=== PATIENT | female | born 2005 | race Caucasian/White ===

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

== ENCOUNTER 2023-01-11 23:42 | Emergency (ER) | payer BC, MEDICAID ==
[2023-01-11] MEDS ORDERED: MOTRIN 600 MG PO ONE (23:50)
[2023-01-12] MEDS ORDERED: MOTRIN 600 MG ONE (00:10)
[2023-01-12 00:11] VITALS: O2SAT 100
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
[2023-01-12 00:52] VITALS: BP 117/76; PULSE 69
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
== END 2023-01-12 01:11 | disposition home or self-care (01) ==
LOC: ED 23:42
DX: Z04.1 Encounter for examination and observation following transport accident (principal); M25.562 Pain in left knee; Z79.899 Other long term (current) drug therapy
CPT/HCPCS: 73560; 99285; A9270-GY

== ENCOUNTER 2023-01-14 11:46 | Emergency (ER) | payer BC, MEDICAID ==
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
[2023-01-14 12:56] VITALS: BP 117/55; PULSE 60; O2SAT 99
[2023-01-14] MEDS ORDERED: NORCO 5/325 MG ONE (13:00)
[2023-01-14] MEDS ORDERED: NORCO 5/325 MG PO ONE (13:57)
== END 2023-01-14 13:10 | disposition home or self-care (01) ==
LOC: ED 11:46
DX: R40.0 Somnolence (principal); F07.81 Postconcussional syndrome; S16.1XXA Strain of muscle, fascia and tendon at neck level, initial encounter; S70.02XA Contusion of left hip, initial encounter; V87.9XXA Person injured in other specified (collision)(noncollision) transport accidents involving nonmotor vehicle (traffic), initial encounter; Z79.891 Long term (current) use of opiate analgesic; Z79.899 Other long term (current) drug therapy
CPT/HCPCS: 70450; 72125; 73502; 99283; A9270-GY

== ENCOUNTER 2023-04-01 10:01 | Emergency (ER) | payer BC, MEDICAID ==
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
[2023-04-01 10:10] VITALS: TEMP 97.4
--- NOTE | 2023-04-01 10:57 | XRAY ---
Indication: Headache 2 weeks. Multiple contiguous axial images obtained through the head without contrast. Comparison: January 14, 2023 Normal appearing brain parenchyma, ventricles, and bony calvarium. Again 1.5 cm right sphenoid sinus polyp/retention cyst. Remaining visualized paranasal sinuses and mastoid air cells are clear. Impression: Again small right sphenoid sinus polyp/retention cyst. Remaining CT head without contrast exam continues to be normal.
[2023-04-01] MEDS ORDERED: NORCO 5/325 MG PO ONE (11:08)
[2023-04-01] MEDS ORDERED: BENADRYL 50 MG/ML IM ONE (11:08)
[2023-04-01] MEDS ORDERED: TORAdol 30 mg Injection IM ONE (11:08)
[2023-04-01] MEDS ORDERED: NORCO 5/325 MG ONE (11:20)
[2023-04-01] MEDS ORDERED: BENADRYL 50 MG/ML ONE (11:20)
[2023-04-01] MEDS ORDERED: TORAdol 30 mg Injection ONE (11:20)
[2023-04-01 11:36] VITALS: BP 117/76; PULSE 86; RESP 16
[2023-04-01 11:39] VITALS: O2SAT 99
== END 2023-04-01 11:48 | disposition home or self-care (01) ==
LOC: ED 10:01
DX: G43.909 Migraine, unspecified, not intractable, without status migrainosus (principal); J33.8 Other polyp of sinus; J34.1 Cyst and mucocele of nose and nasal sinus; Z79.899 Other long term (current) drug therapy
CPT/HCPCS: 70450; 96372; 99283; J1200; J1885; A9270-GY

== ENCOUNTER 2023-11-10 10:56 | Emergency (ER) | payer BC ==
[2023-11-10 11:41] VITALS: PULSE 81; TEMP 97.5
[2023-11-10 12:39] LABS: Absolute Neutrophil Ct (ANC) 4.23 x10^3/uL (1.4-6.9); BASOPHIL % 0.5 % (0.0-0.4); Basophil (Absolute #) 0.03 x10^3/uL (0-0.4); Eosinophil % 1.8 % (0.00-5.0); Eosinophil (Absolute #) 0.12 x10^3/uL (0-0.5); Hematocrit 40.7 % (35-47); Hemoglobin 13.1 g/dL (12.0-16.0); IMMATURE GRAN # 0.02 x10^3u/L (0.00-0.03); IMMATURE GRAN % 0.3 % (0.00-0.4); Lymphocytes % 24.1 % (24.0-44.0); Mean Cell Volume 87.9 fL (78-100); Mean Corpuscular Hemoglobin 28.3 pg (26-32); Mean Corpuscular Hgb Concent. 32.2 g/dL (32-36); Mean Platelet Volume 10.2 fL (7.5-11.0); Monocyte (Absolute #) 0.65 x10^3/uL (0.0-1.3); Monocytes % 9.8 % (0.0-12.0); Neutrophil % 63.5 % (36.0-66.0); Platelet Count 248 x10^3/uL (150-450); Red Blood Count 4.63 x10^6/uL (4.1-5.4); Red Cell Distribution Width 13.2 % (11.5-14.0); White Blood Count 6.7 x10^3/uL (4.0-10.5)
[2023-11-10 12:43] LABS: Appearance Clear (Clear); Bacteria None Seen /HPF (None Seen); Bilirubin Negative (Negative); Blood Negative (Negative); Epithelial Cells None Seen /HPF (None Seen); Glucose, Urine Negative (Negative); HCG URINE TEST NEGATIVE (NEGATIVE); Hyaline Casts NONE SEEN /LPF (0-2); Ketones Negative (Negative); Leukocyte Esterase Negative (Negative); Nitrite Negative (Negative); Ph 6.5 (4.6-8.0); Protein,Urine Dip Negative (Negative); RBC 0-2 /HPF (0-5); Urobilinogen 0.2 mg/dL (0.2); WBC 0-2 /HPF (0-5)
[2023-11-10 12:44] LABS: ADD URINE CULTURE? NO (NO); ALBUMIN 4.1 g/dL (3.5-5.0); ANION GAP 15.3 MEQ/L (5-15); BILIRUBIN,TOTAL 0.6 mg/dL (0.2-1.3); Calcium 9.2 mg/dL (8.4-10.2); Creatinine 1 0.64 mg/dL (0.52-1.04); EST GLOMERULAR FILTRATION RATE 129.7 ML/MIN; Potassium 3.7 mmol/L (3.5-5.1); Total Protein 7.2 g/dL (6.3-8.2)
[2023-11-10 13:17] VITALS: BP 126/59
[2023-11-10] MEDS ORDERED: TORAdol 30 mg Injection ONE (14:03)
--- NOTE | 2023-11-10 14:03 | XRAY ---
Indication: Torsion. Two-dimensional transvaginal pelvic sonogram performed. Comparison: September 18, 2021 Uterus now retroflexed measuring 5.5 x 3.0 x 4.3 cm. No focal solid/cystic uterine mass. Endometrial stripe measures 3.5 mm. No endometrial cavity mass or fluid collection. Right ovary measures 2.2 x 1.9 x 3.0 cm and left measures 2.7 x 2.4 x 1.9 cm. Normal follicular cysts and perfusion bilaterally. Tiny cul-de-sac fluid presumed physiologic from rupture/leaking cyst. Impression: Tiny physiologic cul-de-sac fluid. Remaining transvaginal pelvic sonogram continues to be negative.
[2023-11-10] MEDS: TORAdol 30 mg Injection IV ONE (14:04)
--- NOTE | 2023-11-10 14:05 | XRAY ---
Indication: Pain. Multiple contiguous axial images obtained through the abdomen and pelvis without contrast. Comparison: None Lung bases clear. Heart not enlarged. Noncontrasted stomach and bowel loops appear nonobstructed with normal appearing appendix. Tiny cul-de-sac fluid presumed physiologic from rupture/leaking cyst. No free air. Remaining liver, gallbladder, pancreas, spleen, adrenal glands, kidneys, ureters, bladder, uterus, and aorta are unremarkable for noncontrast exam. Osseous structures intact. No ventral or inguinal hernias. Impression: Tiny physiologic cul-de-sac fluid. Remaining CT abdomen/pelvis without contrast exam is negative.
[2023-11-10 14:09] LABS: CHLAMYDIA DNA NOT DETECTED (NEGATIVE); GC DNA Probe NOT DETECTED (NEGATIVE)
[2023-11-10 14:13] VITALS: O2SAT 99
--- NOTE | 2023-11-10 15:01 | ERPHSYRPT ---
- History of Present Illness Time Seen by Provider: 11/10/23 11:50 Source: patient Exam Limitations: no limitations Patient Subjective Stated Complaint: Pt c/o of lower abdominal pain since yesterday Triage Nursing Assessment: Pt brought to the ER by her friend, amy alstonza, rates pain as 8/10, N&V, denies diarrhea, last intake last night, last bowel movement today, pulses normal, skin n/w/d, pain with palpatation, walked into the ER with a stable gait Physician History: 18-year-old female presents to our ED for evaluation of lower abdominal/pelvic pain. Pain started yesterday and has been constant. No trauma no fever no nausea vomiting or diaphoresis. Symptoms are constant. Symptoms are moderate in intensity. Pain worse with palpation. Pain improved with rest. Patient denies associated nausea vomiting diarrhea. No vaginal discharge. Patient denies the possibility of STI. Patient had a STI workup approximately 2 weeks ago by her [employer] physician. Patient states results were negative. Patient does not believe that there is a need for a pelvic exam today. Patient declined a pelvic exam. Patient voices no other complaints or concerns at this time. Portions of this note were created with voice recognition technology. There may be grammatical, spelling, punctuation or sound alike errors Timing/Duration: yesterday Severity: moderate Modifying Factors: Improves With: nothing Associated Symptoms: denies symptoms Allergies/Adverse Reactions: amoxicillin Allergy (Intermediate, Verified 11/10/23 11:41) Difficulty Breathing cephalexin [From Keflex] Allergy (Intermediate, Verified 11/10/23 11:41) Rash cetirizine [From Zyrtec] Allergy (Intermediate, Verified 11/10/23 11:41) Hives metronidazole Allergy (Intermediate, Verified 11/10/23 11:41) Difficulty Breathing AND RASH trazodone Allergy (Intermediate, Verified 11/10/23 11:41) Hives guaifenesin [From Mucinex] Allergy (Verified 11/10/23 11:41) Rash RASH Home Medications: Paroxetine HCl 20 mg [Paxil 20 MG] 40 mg PO HS MDD 1 tab hs 09/23/17 [History] clonazePAM [Clonazepam] 0.5 mg PO DAILY 04/01/23 [History] Hx Tetanus, Diphtheria Vaccination/Date Given: No Hx Influenza Vaccination/Date Given: No Hx Pneumococcal Vaccination/Date Given: No Travel Risk - International Travel Have you traveled outside of the country in past 3 weeks: No - Emerging Infectious Disease Are you exhibiting symptoms associated with any current EIDs: No - Review of Systems Constitutional: No Symptoms, No Fever, No Chills Eyes: No Symptoms Ears, Nose, & Throat: No Symptoms Respiratory: No Symptoms, No Cough, No Dyspnea Cardiac: No Symptoms, No Chest Pain, No Edema, No Syncope Abdominal/Gastrointestinal: No Symptoms, No Abdominal Pain, No Nausea, No Vomiting, No Diarrhea Genitourinary Symptoms: No Symptoms, No Dysuria Musculoskeletal: No Symptoms, No Back Pain, No Neck Pain Skin: No Symptoms, No Rash Neurological: No Symptoms, No Dizziness, No Focal Weakness, No Sensory Changes Psychological: No Symptoms Endocrine: No Symptoms Hematologic/Lymphatic: No Symptoms Immunological/Allergic: No Symptoms All Other Systems: Reviewed and Negative - Past Medical History Pertinent Past Medical History: Yes Neurological History: No Pertinent History ENT History: No Pertinent History Cardiac History: No Pertinent History Respiratory History: No Pertinent History Endocrine Medical History: No Pertinent History Musculoskeletal History: No Pertinent History GI Medical History: No Pertinent History History: No Pertinent History Psycho-Social History: Anxiety, Other Female Reproductive Disorders: No Pertinent History Other Medical History: insomnia - Past Surgical History Past Surgical History: Yes Neuro Surgical History: No Pertinent History Cardiac: No Pertinent History Respiratory: No Pertinent History Gastrointestinal: No Pertinent History Genitourinary: No Pertinent History Musculoskeletal: No Pertinent History Female Surgical History: No Pertinent History Other Surgical History: cyst removed from sinisus Significant Family History: other (father had afib at age 19) - Female History Hx Now: No - Social History Smoking Status: Never smoker How long have you smoked: 2 Exposure to second hand smoke: Yes Alcohol Use: None Drug Use: none Patient Lives Alone: No - Nursing Vital Signs Nursing Vital Signs: Initial Vital Signs Temperature 97.5 F 11/10/23 11:34 Pulse Rate 81 11/10/23 11:34 Blood Pressure 133/80 11/10/23 11:34 O2 Sat by Pulse Oximetry 98 11/10/23 11:34 Pain Scale Pain Intensity 8 - Physical Exam General Appearance: no apparent distress, alert Eye Exam: PERRL/EOMI, eyes nml inspection Ears, Nose, Throat Exam: normal ENT inspection, TMs normal, pharynx normal, moist mucous membranes Neck Exam: normal inspection, non-tender, supple, full range of motion Respiratory Exam: normal breath sounds, lungs clear, airway intact, No respiratory distress Cardiovascular Exam: regular rate/rhythm, normal heart sounds, normal peripheral pulses Gastrointestinal/Abdomen Exam: soft, normal bowel sounds, No tenderness, No mass Back Exam: normal inspection, normal range of motion, No CVA tenderness, No vertebral tenderness Extremity Exam: normal inspection, normal range of motion, pelvis stable Neurologic Exam: alert, oriented x 3, cooperative, normal mood/affect, nml cerebellar function, nml station & gait, sensation nml, No motor deficits Skin Exam: normal color, warm, dry, No rash Lymphatic Exam: No adenopathy SpO2 Interpretation: normal SpO2: 99 O2 Delivery: Room Air - Course Nursing assessment & vital signs reviewed: Yes Ordered Tests: Active Orders 24 hr Category Date Time Status IV Insertion STAT Care 11/10/23 12:33 Active ABDOMEN AND PELVIS W/0 CONTRAS [CT] Stat Exams 11/10/23 12:58 Completed PELVIS TRANS VAGINAL [US] Stat Exams 11/10/23 12:59 Completed CBC W DIFF Stat Lab 11/10/23 12:34 Completed CMP Stat Lab 11/10/23 12:34 Completed HCG QUALITATIVE, URINE Stat Lab 11/10/23 12:34 Completed LIPASE Stat Lab 11/10/23 12:34 Completed Lactic Acid Stat Lab 11/10/23 12:33 Completed UA W/RFX UR CULTURE Stat Lab 11/10/23 12:34 Completed Medication Summary Discontinued Medications Generic Name Dose Route Start Last Admin Trade Name Izabel PRN Reason Stop Dose Admin Ketorolac Tromethamine 30 mg 11/10/23 13:12 11/10/23 14:04 Ketorolac Tromethamine 30 Mg/Ml Inj IV 11/10/23 13:13 30 mg STAT ONE Administration Ketorolac Tromethamine Confirm 11/10/23 14:03 Ketorolac Tromethamine 30 Mg/Ml Inj Administered 11/10/23 14:04 Dose 30 mg .ROUTE .STK-MED ONE Lab/Rad Data: Laboratory Result Diagrams 11/10/23 12:34 11/10/23 12:34 Laboratory Results 11/10/23 11/10/23 11/10/23 Range/Units 12:34 12:34 12:34 WBC 6.7 (4.0-10.5) x10^3/uL RBC 4.63 (4.1-5.4) x10^6/uL Hgb 13.1 (12.0-16.0) g/dL Hct 40.7 (35-47) % MCV 87.9 (78-100) fL MCH 28.3 (26-32) pg MCHC 32.2 (32-36) g/dL RDW 13.2 (11.5-14.0) % Plt Count 248 (150-450) x10^3/uL MPV 10.2 (7.5-11.0) fL Gran % 63.5 (36.0-66.0) % Immature Gran % (Auto) 0.3 (0.00-0.4) % Nucleat RBC Rel Count 0.0 (0.00-0.1) % Eos # (Auto) 0.12 (0-0.5) x10^3/uL Immature Gran # (Auto) 0.02 (0.00-0.03) x10^3u/L Absolute Lymphs (auto) 1.60 (1.0-4.6) x10^3/uL Absolute Monos (auto) 0.65 (0.0-1.3) x10^3/uL Absolute Nucleated RBC 0.00 (0.00-0.01) x10^3u/L Lymphocytes % 24.1 (24.0-44.0) % Monocytes % 9.8 (0.0-12.0) % Eosinophils % 1.8 (0.00-5.0) % Basophils % 0.5 (0.0-0.4) % Absolute Granulocytes 4.23 (1.4-6.9) x10^3/uL Basophils # 0.03 (0-0.4) x10^3/uL Sodium 142 (135-145) mmol/L Potassium 3.7 (3.5-5.1) mmol/L Chloride 110 H (98-107) mmol/L Carbon Dioxide 20 L (22-30) mmol/L Anion Gap 15.3 H (5-15) MEQ/L BUN 13 (7-17) mg/dL Creatinine 0.64 (0.52-1.04) mg/dL Estimated GFR 129.7 ML/MIN Glucose 78 (74-106) mg/dL Lactic Acid (0.4-2.0) Calcium 9.2 (8.4-10.2) mg/dL Total Bilirubin 0.60 (0.2-1.3) mg/dL AST 27 (14-36) U/L ALT 23 (0-35) U/L Alkaline Phosphatase 163 H (38-126) U/L Serum Total Protein 7.2 (6.3-8.2) g/dL Albumin 4.1 (3.5-5.0) g/dL Lipase 124 (23-300) U/L Urine Color (Yellow) Urine Appearance (Clear) Urine pH (4.6-8.0) Ur Specific [place] (1.005-1.030) Urine Protein (Negative) Urine Glucose (UA) (Negative) mg/dL Urine Ketones (Negative) Urine Blood (Negative) Urine Nitrite (Negative) Urine Bilirubin (Negative) Urine Urobilinogen (0.2) mg/dL Ur Leukocyte Esterase (Negative) U Hyaline Cast (Auto) (0-2) /LPF Urine Microscopic RBC (0-5) /HPF Urine Microscopic WBC (0-5) /HPF Ur Epithelial Cells (None Seen) /HPF Urine Bacteria (None Seen) /HPF Urine Culture Reflexed (NO) Urine HCG, Qual NEGATIVE (NEGATIVE) Chlamydia DNA Probe (NEGATIVE) N.gonorrhoeae DNA Probe (NEGATIVE) 11/10/23 11/10/23 11/10/23 Range/Units 12:34 12:34 12:33 WBC (4.0-10.5) x10^3/uL RBC (4.1-5.4) x10^6/uL Hgb (12.0-16.0) g/dL Hct (35-47) % MCV (78-100) fL MCH (26-32) pg MCHC (32-36) g/dL RDW (11.5-14.0) % Plt Count (150-450) x10^3/uL MPV (7.5-11.0) fL Gran % (36.0-66.0) % Immature Gran % (Auto) (0.00-0.4) % Nucleat RBC Rel Count (0.00-0.1) % Eos # (Auto) (0-0.5) x10^3/uL Immature Gran # (Auto) (0.00-0.03) x10^3u/L Absolute Lymphs (auto) (1.0-4.6) x10^3/uL Absolute Monos (auto) (0.0-1.3) x10^3/uL Absolute Nucleated RBC (0.00-0.01) x10^3u/L Lymphocytes % (24.0-44.0) % Monocytes % (0.0-12.0) % Eosinophils % (0.00-5.0) % Basophils % (0.0-0.4) % Absolute Granulocytes (1.4-6.9) x10^3/uL Basophils # (0-0.4) x10^3/uL Sodium (135-145) mmol/L Potassium (3.5-5.1) mmol/L Chloride (98-107) mmol/L Carbon Dioxide (22-30) mmol/L Anion Gap (5-15) MEQ/L BUN (7-17) mg/dL Creatinine (0.52-1.04) mg/dL Estimated GFR ML/MIN Glucose (74-106) mg/dL Lactic Acid 1.7 (0.4-2.0) Calcium (8.4-10.2) mg/dL Total Bilirubin (0.2-1.3) mg/dL AST (14-36) U/L ALT (0-35) U/L Alkaline Phosphatase (38-126) U/L Serum Total Protein (6.3-8.2) g/dL Albumin (3.5-5.0) g/dL Lipase (23-300) U/L Urine Color Yellow (Yellow) Urine Appearance Clear (Clear) Urine pH 6.5 (4.6-8.0) Ur Specific [place] 1.010 (1.005-1.030) Urine Protein Negative (Negative) Urine Glucose (UA) Negative (Negative) mg/dL Urine Ketones Negative (Negative) Urine Blood Negative (Negative) Urine Nitrite Negative (Negative) Urine Bilirubin Negative (Negative) Urine Urobilinogen 0.2 (0.2) mg/dL Ur Leukocyte Esterase Negative (Negative) U Hyaline Cast (Auto) NONE SEEN (0-2) /LPF Urine Microscopic RBC 0-2 (0-5) /HPF Urine Microscopic WBC 0-2 (0-5) /HPF Ur Epithelial Cells None Seen (None Seen) /HPF Urine Bacteria None Seen (None Seen) /HPF Urine Culture Reflexed NO (NO) Urine HCG, Qual (NEGATIVE) Chlamydia DNA Probe NOT DETECTED (NEGATIVE) N.gonorrhoeae DNA Probe NOT DETECTED (NEGATIVE) - Progress Progress: improved Progress Note: 18-year-old female presents to emergency department for evaluation of pelvic pain. Pain medication administered. Physical exam reveals some tenderness at the pelvic region. Laboratory workup nonremarkable. Urinalysis unremarkable. Pelvic ultrasound shows ruptured cyst. Some physiologic fluid in the cul-de-sac. No acute findings on the abdomen pelvis CAT scan. We established an appointment with patient's [employer] HOME [employer] doctor for November 12. A prescription for Toradol forwarded to patient's pharmacy. Patient is ready for discharge. She will follow-up as scheduled. She voices no other complaints or concerns at this time. Complexity problem addressed is moderate acute complicated No critical care time Complex of data reviewed and analyzed is moderate. Test ordered test reviewed results analyzed and correlated clinically with history physical examination. Risk of complication and or risk of morbidity/mortality patient management is moderate. A prescription for Toradol forwarded to patient's pharmacy. Patient received Toradol for pain control in our ED which appears to have improved her symptoms. Vital stable. Time spent to discharge patient is approximately 15 minutes. Plan of care established for shared decision making. No social determinants of health present impede follow-up Portions of this note were created with voice recognition technology. There may be grammatical, spelling, punctuation or sound alike errors 11/10/23 15:12 Counseled pt/family regarding: lab results, diagnosis, need for follow-up, rad results - Departure Departure Disposition: Home Clinical Impression: Pelvic pain, Ruptured ovarian cyst Condition: Stable Critical Care Time: No Referrals: TORI MACHADO [Primary Care Provider] - Follow up/PCP as directed Additional Instructions: Discharge/Care Plan KARIS LEVY was seen on 11/10/23 in the Emergency Room. The patient was counseled regarding Diagnosis,Lab results, Imaging studies, need for follow up and when to return to the Emergency Room. Prescriptions given: Discharge Note I have spoken with the patient and/or caregivers. I have explained the patient's condition, diagnosis and treatment plan based on the information available to me at this time. I have answered the patient's and/or caregiver's questions and addressed any concerns. The patient and/or caregivers have as good understanding of the patient's diagnosis, condition and treatment plan as can be expected at this point. The vital signs have been stable. The patient's condition is stable and appropriate for discharge from the emergency department. The patient will pursue further outpatient evaluation with the primary care physician or other designated or consulting physician as outlined in the discharge instructions. The patient and/or caregivers are agreeable to this plan of care and follow-up instructions have been explained in detail. The patient and/or caregivers have received these instruction. The patient/and or caregivers are aware that any significant change in condition or worsening of symptoms should prompt an immediate return to this or the closest emergency department or call 911. Prescriptions: Ketorolac Trometh 10 mg Tab [TORAdol 10 MG TABLET] 10 mg PO TID 5 Days #15 tablet
== END 2023-11-10 15:14 | disposition home or self-care (01) ==
LOC: ED 10:56
DX: N83.209 Unspecified ovarian cyst, unspecified side (principal); R10.2 Pelvic and perineal pain; R10.30 Lower abdominal pain, unspecified; Z79.899 Other long term (current) drug therapy
CPT/HCPCS: 36000; 36415; 74176; 76830; 80053; 81001; 81025; 83605; 83690; 85025; 87491; 87591; 96374; 99284; J1885

== ENCOUNTER 2024-02-17 11:47 | Emergency (ER) | payer BC ==
--- NOTE | 2024-02-17 11:58 | ERPHSYRPT ---
- History of Present Illness Time Seen by Provider: 02/17/24 11:57 Historian: patient, family, old records Exam Limitations: no limitations Physician History: This is a 18-year-old white female patient who arrives by private vehicle and is a patient of Dr. Hart. She arrives with symptoms of abdominal pain and vomiting. Patient states she has not felt well for couple of days. The pain has been present in the right lower quadrant and radiates into her right hip as well as to the infraumbilical region midline. Patient states her last menstrual period was on 06 February. Patient is sexually active. She has had increased vaginal discharge as well. She describes the pain as throbbing. Patient had multiple episodes of vomiting this morning. Patient denies chest pain and she denies shortness of breath. Patient is not breast-feeding. Timing/Duration: day(s) (2) Abdominal Pain Onset Location: RLQ, other (Infraumbilical midline) Pain Radiation: other (Pain starts in the right lower quadrant and radiates into her right hip and the infraumbilical midline) Severity of Pain-Max: moderate Associated Symptoms: loss of appetite, nausea, vomiting, weakness, No chest pain, No diarrhea, No fever/chills, No headache, No neck pain, No shortness of breath Allergies/Adverse Reactions: amoxicillin Allergy (Intermediate, Verified 11/10/23 11:41) Difficulty Breathing cephalexin [From Keflex] Allergy (Intermediate, Verified 11/10/23 11:41) Rash cetirizine [From Zyrtec] Allergy (Intermediate, Verified 11/10/23 11:41) Hives metronidazole Allergy (Intermediate, Verified 11/10/23 11:41) Difficulty Breathing AND RASH trazodone Allergy (Intermediate, Verified 11/10/23 11:41) Hives ketorolac [From Toradol] Allergy (Mild, Verified 02/17/24 11:59) Muscle Aches guaifenesin [From Mucinex] Allergy (Verified 11/10/23 11:41) Rash RASH Home Medications: Paroxetine HCl 20 mg [Paxil 20 MG] 40 mg PO HS MDD 1 tab hs 09/23/17 [History] clonazePAM [Clonazepam] 0.5 mg PO HS 04/01/23 [History] Furosemide 20 mg [Lasix 20 mg] 20 mg PO DAILY 02/17/24 [History] Potassium Chloride Tab* [Klor Con] 10 mg PO DAILY 02/17/24 [History] Hx Tetanus, Diphtheria Vaccination/Date Given: No Hx Influenza Vaccination/Date Given: No Hx Pneumococcal Vaccination/Date Given: No Travel Risk - Emerging Infectious Disease Are you exhibiting symptoms associated with any current EIDs: Yes Symptoms: Abdominal Pain, Vomitting - Review of Systems Constitutional: Weakness Eyes: No Symptoms Ears, Nose, & Throat: No Symptoms Respiratory: No Symptoms Cardiac: No Symptoms Abdominal/Gastrointestinal: Abdominal Pain, Nausea, Vomiting, No Diarrhea, No Constipation, No Appetite Changes Genitourinary Symptoms: No Symptoms Musculoskeletal: No Symptoms Skin: No Symptoms Neurological: No Symptoms Psychological: No Symptoms Endocrine: No Symptoms Hematologic/Lymphatic: No Symptoms Immunological/Allergic: No Symptoms All Other Systems: Reviewed and Negative - Past Medical History Pertinent Past Medical History: Yes Neurological History: No Pertinent History ENT History: No Pertinent History Cardiac History: No Pertinent History Respiratory History: No Pertinent History Endocrine Medical History: No Pertinent History Musculoskeletal History: No Pertinent History GI Medical History: No Pertinent History History: No Pertinent History Psycho-Social History: Anxiety, Other Female Reproductive Disorders: No Pertinent History Other Medical History: insomnia - Past Surgical History Past Surgical History: Yes Neuro Surgical History: No Pertinent History Cardiac: No Pertinent History Respiratory: No Pertinent History Gastrointestinal: No Pertinent History Genitourinary: No Pertinent History Musculoskeletal: No Pertinent History Female Surgical History: No Pertinent History Other Surgical History: cyst removed from sinisus Significant Family History: other (father had afib at age 19) - Social History Smoking Status: Never smoker How long have you smoked: 2 Exposure to second hand smoke: Yes Alcohol Use: None Drug Use: none Patient Lives Alone: No - Social Determinants of Health Will the patient participate in the screening: Yes Do you worry about a steady place to live?: No In the past 12 months,have you had to go without utilities?: No Transportation Issues: No Has anyone in your support network made you feel unsafe?: No Have you or anyone in your house had to go without enough: No - Nursing Vital Signs Nursing Vital Signs: Initial Vital Signs Pulse Rate 72 02/17/24 11:55 Respiratory Rate 18 02/17/24 11:55 Blood Pressure 145/87 02/17/24 11:55 O2 Sat by Pulse Oximetry 97 02/17/24 11:55 Pain Scale Pain Intensity 0 - Physical Exam General Appearance: mild distress, alert, anxiety Eye Exam: PERRL/EOMI, eyes nml inspection Ears, Nose, Throat Exam: normal ENT inspection, moist mucous membranes Neck Exam: normal inspection, non-tender, supple, full range of motion Respiratory Exam: normal breath sounds, lungs clear, airway intact, No chest t enderness, No respiratory distress Cardiovascular Exam: regular rate/rhythm, normal heart sounds, normal peripheral pulses Gastrointestinal/Abdomen Exam: soft, normal bowel sounds, tenderness (Right lower quadrant to palpation), guarding (Right lower quadrant to palpation), No rebound Pelvic Exam: not done Rectal Exam: not done Back Exam: normal inspection, normal range of motion, No CVA tenderness, No vertebral tenderness Extremity Exam: normal inspection, normal range of motion, pelvis stable Neurologic Exam: alert, oriented x 3, cooperative, international tax manager II-XII nml as tested, nml cerebellar function, nml station & gait, sensation nml Skin Exam: normal color, warm, dry Lymphatic Exam: No adenopathy SpO2 Interpretation: normal O2 Delivery: Room Air - Course Nursing assessment & vital signs reviewed: Yes Ordered Tests: Active Orders 24 hr Category Date Time Status IV Insertion STAT Care 02/17/24 12:10 Active ABDOMEN AND PELVIS W/0 CONTRAS [CT] Stat Exams 02/17/24 12:10 Completed AMYLASE Stat Lab 02/17/24 12:15 Completed BLOOD CULTURE Stat Lab 02/17/24 13:10 Received CBC W DIFF Stat Lab 02/17/24 12:15 Completed CMP Stat Lab 02/17/24 12:15 Completed HCG QUALITATIVE, SERUM Stat Lab 02/17/24 12:15 Completed MONO SCREEN Stat Lab 02/17/24 12:15 Completed UA W/RFX UR CULTURE Stat Lab 02/17/24 12:13 Completed Medication Summary Discontinued Medications Generic Name Dose Route Start Last Admin Trade Name Todq PRN Reason Stop Dose Admin Hydromorphone HCl 1 mg 02/17/24 12:10 02/17/24 12:33 Hydromorphone 1 Mg/1ml Inj IV 02/17/24 12:11 1 mg STAT ONE Administration Hydromorphone HCl Confirm 02/17/24 12:27 Hydromorphone 1 Mg/1ml Inj Administered 02/17/24 12:28 Dose 1 mg .ROUTE .STK-MED ONE Sodium Chloride 1,000 mls @ 999 mls/hr 02/17/24 12:10 02/17/24 13:34 Sodium Chloride 0.9% 1000 Ml IV 02/17/24 13:10 Infused .Q1H1M STA Infusion Sodium Chloride Confirm 02/17/24 12:27 Sodium Chloride 0.9% 1000 Ml Administered 02/17/24 12:28 Dose 1,000 mls @ ud .ROUTE .STK-MED ONE Ondansetron HCl 4 mg 02/17/24 12:10 02/17/24 12:33 Ondansetron Hcl 4 Mg/2 Ml Vial IV 02/17/24 12:11 4 mg STAT ONE Administration Ondansetron HCl Confirm 02/17/24 12:24 Ondansetron Hcl 4 Mg/2 Ml Vial Administered 02/17/24 12:25 Dose 4 mg .ROUTE .STK-MED ONE Lab/Rad Data: Laboratory Result Diagrams 02/17/24 12:15 02/17/24 12:15 Laboratory Results 02/17/24 02/17/24 02/17/24 Range/Units 13:12 12:15 12:15 WBC (3.98-10.04) x10^3/uL RBC (3.93-5.22) x10^6/uL Hgb (11.2-15.7) g/dL Hct (34.1-44.9) % MCV (79.4-94.8) fL MCH (25.6-32.2) pg MCHC (32.2-35.5) g/dL RDW (11.7-14.4) % Plt Count (182-369) x10^3/uL MPV (9.4-12.3) fL Gran % (34.0-71.1) % Immature Gran % (Auto) (0.001-0.429) % Nucleat RBC Rel Count (0.00-0.2) % Eos # (Auto) (0.04-0.36) x10^3/uL Immature Gran # (Auto) (0.001-0.031) x10^3u/L Absolute Lymphs (auto) (1.18-3.74) x10^3/uL Absolute Monos (auto) (0.24-0.86) x10^3/uL Absolute Nucleated RBC (0.00-0.012) x10^3u/L Lymphocytes % (19.3-51.7) % Monocytes % (4.7-12.5) % Eosinophils % (0.7-5.8) % Basophils % (0.1-1.2) % Absolute Granulocytes (1.56-6.13) x10^3/uL Basophils # (0.01-0.08) x10^3/uL Sodium (135-145) mmol/L Potassium (3.5-5.1) mmol/L Chloride (98-107) mmol/L Carbon Dioxide (22-30) mmol/L Anion Gap (5-15) MEQ/L BUN (7-17) mg/dL Creatinine (0.52-1.04) mg/dL Estimated GFR ML/MIN Glucose (74-106) mg/dL Calcium (8.4-10.2) mg/dL Total Bilirubin (0.2-1.3) mg/dL AST (14-36) U/L ALT (0-35) U/L Alkaline Phosphatase (38-126) U/L Serum Total Protein (6.3-8.2) g/dL Albumin (3.5-5.0) g/dL Amylase (30-110) U/L Serum HCG, Qual (NEGATIVE) Urine Color (Yellow) Urine Appearance (Clear) Urine pH (4.6-8.0) Ur Specific [employer] (1.005-1.030) Urine Protein (Negative) Urine Glucose (UA) (Negative) mg/dL Urine Ketones (Negative) Urine Blood (Negative) Urine Nitrite (Negative) Urine Bilirubin (Negative) Urine Urobilinogen (0.2) mg/dL Ur Leukocyte Esterase (Negative) U Hyaline Cast (Auto) (0-2) /LPF Urine Microscopic RBC (0-5) /HPF Urine Microscopic WBC (0-5) /HPF Ur Epithelial Cells (None Seen) /HPF Urine Bacteria (None Seen) /HPF Urine Culture Reflexed (NO) Chlamydia DNA Probe NOT DETECTED (NEGATIVE) Monoscreen NEGATIVE (NEGATIVE) Influenza Type A Ag NEGATIVE (NEGATIVE) Influenza Type B Ag NEGATIVE (NEGATIVE) N.gonorrhoeae DNA Probe NOT DETECTED (NEGATIVE) RSV (PCR) NEGATIVE (NEGATIVE) SARS-CoV-2 (PCR) NEGATIVE (NEGATIVE) 02/17/24 02/17/24 02/17/24 Range/Units 12:15 12:15 12:15 WBC 6.0 (3.98-10.04) x10^3/uL RBC 4.92 (3.93-5.22) x10^6/uL Hgb 13.8 (11.2-15.7) g/dL Hct 41.7 (34.1-44.9) % MCV 84.8 (79.4-94.8) fL MCH 28.0 (25.6-32.2) pg MCHC 33.1 (32.2-35.5) g/dL RDW 12.8 (11.7-14.4) % Plt Count 213 (182-369) x10^3/uL MPV 10.7 (9.4-12.3) fL Gran % 53.0 (34.0-71.1) % Immature Gran % (Auto) 0.2 (0.001-0.429) % Nucleat RBC Rel Count 0.0 (0.00-0.2) % Eos # (Auto) 0.10 (0.04-0.36) x10^3/uL Immature Gran # (Auto) 0.01 (0.001-0.031) x10^3u/L Absolute Lymphs (auto) 1.95 (1.18-3.74) x10^3/uL Absolute Monos (auto) 0.72 (0.24-0.86) x10^3/uL Absolute Nucleated RBC 0.00 (0.00-0.012) x10^3u/L Lymphocytes % 32.6 (19.3-51.7) % Monocytes % 12.0 (4.7-12.5) % Eosinophils % 1.7 (0.7-5.8) % Basophils % 0.5 (0.1-1.2) % Absolute Granulocytes 3.18 (1.56-6.13) x10^3/uL Basophils # 0.03 (0.01-0.08) x10^3/uL Sodium 140 (135-145) mmol/L Potassium 3.8 (3.5-5.1) mmol/L Chloride 107 (98-107) mmol/L Carbon Dioxide 20 L (22-30) mmol/L Anion Gap 16.2 H (5-15) MEQ/L BUN 9 (7-17) mg/dL Creatinine 0.66 (0.52-1.04) mg/dL Estimated GFR 128.7 ML/MIN Glucose 79 (74-106) mg/dL Calcium 9.3 (8.4-10.2) mg/dL Total Bilirubin 1.10 (0.2-1.3) mg/dL AST 29 (14-36) U/L ALT 27 (0-35) U/L Alkaline Phosphatase 166 H (38-126) U/L Serum Total Protein 7.9 (6.3-8.2) g/dL Albumin 4.7 (3.5-5.0) g/dL Amylase 84 (30-110) U/L Serum HCG, Qual NEGATIVE (NEGATIVE) Urine Color (Yellow) Urine Appearance (Clear) Urine pH (4.6-8.0) Ur Specific [employer] (1.005-1.030) Urine Protein (Negative) Urine Glucose (UA) (Negative) mg/dL Urine Ketones (Negative) Urine Blood (Negative) Urine Nitrite (Negative) Urine Bilirubin (Negative) Urine Urobilinogen (0.2) mg/dL Ur Leukocyte Esterase (Negative) U Hyaline Cast (Auto) (0-2) /LPF Urine Microscopic RBC (0-5) /HPF Urine Microscopic WBC (0-5) /HPF Ur Epithelial Cells (None Seen) /HPF Urine Bacteria (None Seen) /HPF Urine Culture Reflexed (NO) Chlamydia DNA Probe (NEGATIVE) Monoscreen (NEGATIVE) Influenza Type A Ag (NEGATIVE) Influenza Type B Ag (NEGATIVE) N.gonorrhoeae DNA Probe (NEGATIVE) RSV (PCR) (NEGATIVE) SARS-CoV-2 (PCR) (NEGATIVE) 02/17/24 Range/Units 12:13 WBC (3.98-10.04) x10^3/uL RBC (3.93-5.22) x10^6/uL Hgb (11.2-15.7) g/dL Hct (34.1-44.9) % MCV (79.4-94.8) fL MCH (25.6-32.2) pg MCHC (32.2-35.5) g/dL RDW (11.7-14.4) % Plt Count (182-369) x10^3/uL MPV (9.4-12.3) fL Gran % (34.0-71.1) % Immature Gran % (Auto) (0.001-0.429) % Nucleat RBC Rel Count (0.00-0.2) % Eos # (Auto) (0.04-0.36) x10^3/uL Immature Gran # (Auto) (0.001-0.031) x10^3u/L Absolute Lymphs (auto) (1.18-3.74) x10^3/uL Absolute Monos (auto) (0.24-0.86) x10^3/uL Absolute Nucleated RBC (0.00-0.012) x10^3u/L Lymphocytes % (19.3-51.7) % Monocytes % (4.7-12.5) % Eosinophils % (0.7-5.8) % Basophils % (0.1-1.2) % Absolute Granulocytes (1.56-6.13) x10^3/uL Basophils # (0.01-0.08) x10^3/uL Sodium (135-145) mmol/L Potassium (3.5-5.1) mmol/L Chloride (98-107) mmol/L Carbon Dioxide (22-30) mmol/L Anion Gap (5-15) MEQ/L BUN (7-17) mg/dL Creatinine (0.52-1.04) mg/dL Estimated GFR ML/MIN Glucose (74-106) mg/dL Calcium (8.4-10.2) mg/dL Total Bilirubin (0.2-1.3) mg/dL AST (14-36) U/L ALT (0-35) U/L Alkaline Phosphatase (38-126) U/L Serum Total Protein (6.3-8.2) g/dL Albumin (3.5-5.0) g/dL Amylase (30-110) U/L Serum HCG, Qual (NEGATIVE) Urine Color Yellow (Yellow) Urine Appearance Clear (Clear) Urine pH 6.5 (4.6-8.0) Ur Specific [employer] 1.015 (1.005-1.030) Urine Protein Negative (Negative) Urine Glucose (UA) Negative (Negative) mg/dL Urine Ketones Negative (Negative) Urine Blood Negative (Negative) Urine Nitrite Negative (Negative) Urine Bilirubin Negative (Negative) Urine Urobilinogen 0.2 (0.2) mg/dL Ur Leukocyte Esterase Trace A (Negative) U Hyaline Cast (Auto) NONE SEEN (0-2) /LPF Urine Microscopic RBC 0-2 (0-5) /HPF Urine Microscopic WBC 0-2 (0-5) /HPF Ur Epithelial Cells None Seen (None Seen) /HPF Urine Bacteria None Seen (None Seen) /HPF Urine Culture Reflexed NO (NO) Chlamydia DNA Probe (NEGATIVE) Monoscreen (NEGATIVE) Influenza Type A Ag (NEGATIVE) Influenza Type B Ag (NEGATIVE) N.gonorrhoeae DNA Probe (NEGATIVE) RSV (PCR) (NEGATIVE) SARS-CoV-2 (PCR) (NEGATIVE) - Progress Progress: improved, pain not gone completely, re-examined Progress Note: 02/17/24 12:58 My medical decision making and the assignment of moderate complexity to this patient's medical issue today is based on review of the patient's past medical history, review of the patient's medication list, review of the patient's drug allergy list, history presence and physical findings on examination. The workup in this patient includes placement of intravenous line, infusion of intravenous crystalloid, infusion of antiemetic, infusion of Dilaudid, CBC, CMP, amylase, lipase, urinalysis, test, urine GC/chlamydia, viral swabs, monotest, CT scan of the abdomen and pelvis without contrast. Differential diagnosis includes but is not limited to urinary tract infection, viral illness, dehydration, electrolyte abnormalities, pancreatitis, acute maris endicitis, ovarian pathology 02/17/24 14:16 Based on the patient's laboratory data results, the patient does not have an acute or emergent medical issue. CT scan of the abdomen pelvis was interpreted by radiologist and I reviewed the impression. The impression states mild diffuse fecal stasis. Normal appearing appendix. Nonobstructed, noncontrast stomach and bowel loops. No free air or free fluid present. Counseled pt/family regarding: lab results, diagnosis, rad results Medical Desision Making - Diagnostic Testing Diagnostic test were ordered, analyzed, and reviewed by me: Yes Radiological Interpretation: Reviewed by me, Teleradiologist Report - Risk of complications Minimal Risk: Minimal risk of morbidity - Departure Departure Disposition: Home Clinical Impression: Abdominal pain, Vomiting Condition: Stable Critical Care Time: No Referrals: TORI HART [Primary Care Provider] - Follow up/PCP as directed Additional Instructions: Back your diet off to a clear liquid diet. Drink a clear liquid diet for 12 to 24 hours. Once you are tolerating a clear liquid diet well, may advance your diet slowly. Avoid fatty greasy spicy foods. Call your primary care provider today, 02/17/2024, to make arranges for follow-up appointment for further evaluation management. Prescriptions: Ondansetron ODT 4 MG [Zofran Odt 4 mg] 4 mg PO Q6H PRN PRN #10 tablet PRN Reason: Vomiting
[2024-02-17 12:09] VITALS: TEMP 98.3
[2024-02-17] MEDS ORDERED: Zofran 4 MG/2 ML VIAL ONE (12:24)
[2024-02-17] MEDS ORDERED: Sodium Chloride 0.9% 1000 ML 1,000 ML ONE (12:27)
[2024-02-17] MEDS ORDERED: Hydromorphone 1 mg/ml Injection ONE (12:27)
[2024-02-17] MEDS: Hydromorphone 1 mg/ml Injection IV ONE (12:33)
[2024-02-17] MEDS: Sodium Chloride 0.9% 1000 ML 1,000 ML IV STA (12:33)
[2024-02-17] MEDS: Zofran 4 MG/2 ML VIAL IV ONE (12:33)
[2024-02-17 12:35] LABS: Absolute Neutrophil Ct (ANC) 3.18 x10^3/uL (1.56-6.13); BASOPHIL % 0.5 % (0.1-1.2); Basophil (Absolute #) 0.03 x10^3/uL (0.01-0.08); Eosinophil % 1.7 % (0.7-5.8); Hematocrit 41.7 % (34.1-44.9); Hemoglobin 13.8 g/dL (11.2-15.7); IMMATURE GRAN # 0.01 x10^3u/L (0.001-0.031); IMMATURE GRAN % 0.2 % (0.001-0.429); Lymphocyte (Absolute #) 1.95 x10^3/uL (1.18-3.74); Lymphocytes % 32.6 % (19.3-51.7); Mean Cell Volume 84.8 fL (79.4-94.8); Mean Corpuscular Hgb Concent. 33.1 g/dL (32.2-35.5); Mean Platelet Volume 10.7 fL (9.4-12.3); Monocyte (Absolute #) 0.72 x10^3/uL (0.24-0.86); Platelet Count 213 x10^3/uL (182-369); Red Blood Count 4.92 x10^6/uL (3.93-5.22); Red Cell Distribution Width 12.8 % (11.7-14.4)
[2024-02-17 12:42] LABS: ALBUMIN 4.7 g/dL (3.5-5.0); ANION GAP 16.2 MEQ/L (5-15); BILIRUBIN,TOTAL 1.1 mg/dL (0.2-1.3); Calcium 9.3 mg/dL (8.4-10.2); Creatinine 1 0.66 mg/dL (0.52-1.04); EST GLOMERULAR FILTRATION RATE 128.7 ML/MIN; Potassium 3.8 mmol/L (3.5-5.1); Total Protein 7.9 g/dL (6.3-8.2)
[2024-02-17 12:43] LABS: HCG SERUM TEST NEGATIVE (NEGATIVE)
[2024-02-17 12:46] LABS: Appearance Clear (Clear); Bacteria None Seen /HPF (None Seen); Bilirubin Negative (Negative); Blood Negative (Negative); Epithelial Cells None Seen /HPF (None Seen); Glucose, Urine Negative (Negative); Hyaline Casts NONE SEEN /LPF (0-2); Ketones Negative (Negative); Leukocyte Esterase Trace (Negative); Nitrite Negative (Negative); Ph 6.5 (4.6-8.0); Protein,Urine Dip Negative (Negative); RBC 0-2 /HPF (0-5); Specific Gravity 1.015 (1.005-1.030); Urobilinogen 0.2 mg/dL (0.2); WBC 0-2 /HPF (0-5)
[2024-02-17 12:52] LABS: ADD URINE CULTURE? NO (NO)
[2024-02-17 13:54] LABS: INFLUENZA A NEGATIVE (NEGATIVE); INFLUENZA B NEGATIVE (NEGATIVE); RESPIRATORY SYNCTIAL VIRUS NEGATIVE (NEGATIVE); SARS-CoV-2 Xpert Express NEGATIVE (NEGATIVE)
[2024-02-17 14:07] LABS: CHLAMYDIA DNA NOT DETECTED (NEGATIVE); GC DNA Probe NOT DETECTED (NEGATIVE)
--- NOTE | 2024-02-17 14:07 | XRAY ---
Indication: Right lower quadrant pain. Vaginal discharge. Multiple contiguous axial images obtained through abdomen and pelvis without contrast. Comparison: November 10, 2023 Lung bases remain clear. Heart not enlarged. Noncontrasted stomach and bowel loops nonobstructed again with normal appendix. Mild diffuse scattered colonic fecal debris greatest in ascending and transverse colon. No free fluid/air. Remaining liver, gallbladder, pancreas, spleen, adrenal glands, kidneys, ureters, bladder, uterus, and aorta are unremarkable for noncontrast exam. Osseous structures intact. Impression: Mild diffuse fecal stasis. Remaining CT abdomen/pelvis without contrast exam continues to be normal.
[2024-02-17 14:26] VITALS: BP 106/69; PULSE 72; RESP 16; O2SAT 96
== END 2024-02-17 14:46 | disposition home or self-care (01) ==
LOC: ED 11:47
DX: R11.2 Nausea with vomiting, unspecified (principal); R10.31 Right lower quadrant pain; R10.33 Periumbilical pain; Z79.899 Other long term (current) drug therapy
CPT/HCPCS: 0241U; 36000; 36415; 74176; 80053; 81001; 82150; 84703; 85025; 86308; 87040; 87491; 87591; 96360; 96374; 96375; 99284; J1170; J2405

== ENCOUNTER 2024-02-23 15:15 | Emergency (ER) | payer BC ==
--- NOTE | 2024-02-23 15:38 | ERPHSYRPT ---
- History of Present Illness Time Seen by Provider: 02/23/24 15:34 Historian: patient Exam Limitations: no limitations Physician History: 18-year-old female presents to our emergency department for evaluation of right upper quadrant pain. Patient was in our ED last for abdominal pain. Patient states her pain is now localized to the right upper quadrant. Patient followed up with her primary care provider today who advised that she come to our ED for an ultrasound of the right upper quadrant. Patient currently has a ultrasound appointment scheduled but states that her pain is significant and she cannot wait. No trauma no fever. Mild nausea. Symptoms are mild to moderate in intensity. No specific worsening improving factors. Patient voices no other complaints or concerns at this time. Portions of this note were created with voice recognition technology. There may be grammatical, spelling, punctuation or sound alike errors Timing/Duration: today Activities at Onset: none Quality: aching Abdominal Pain Onset Location: RUQ Pain Radiation: no radiation Severity of Pain-Max: moderate Severity of Pain-Current: mild Modifying Factors: Improves With: nothing Associated Symptoms: nausea Allergies/Adverse Reactions: amoxicillin Allergy (Intermediate, Verified 02/23/24 15:30) Difficulty Breathing cephalexin [From Keflex] Allergy (Intermediate, Verified 02/23/24 15:30) Rash cetirizine [From Zyrtec] Allergy (Intermediate, Verified 02/23/24 15:30) Hives metronidazole Allergy (Intermediate, Verified 02/23/24 15:30) Difficulty Breathing AND RASH trazodone Allergy (Intermediate, Verified 02/23/24 15:30) Hives ketorolac [From Toradol] Allergy (Mild, Verified 02/23/24 15:30) Muscle Aches guaifenesin [From Mucinex] Allergy (Verified 02/23/24 15:30) Rash RASH Home Medications: Paroxetine HCl 20 mg [Paxil 20 MG] 40 mg PO HS MDD 1 tab hs 09/23/17 [History] clonazePAM [Clonazepam] 0.5 mg PO HS 04/01/23 [History] Furosemide 20 mg [Lasix 20 mg] 20 mg PO DAILY 02/17/24 [History] Potassium Chloride Tab* [Klor Con] 10 mg PO DAILY 02/17/24 [History] Medroxyprogesterone Acetate 1 ml IM CLARIFY 02/23/24 [History] Hx Tetanus, Diphtheria Vaccination/Date Given: No Hx Influenza Vaccination/Date Given: No Hx Pneumococcal Vaccination/Date Given: No Travel Risk - Emerging Infectious Disease Are you exhibiting symptoms associated with any current EIDs: Yes Symptoms: Abdominal Pain, Vomitting - Review of Systems Constitutional: No Symptoms, No Fever, No Chills Eyes: No Symptoms Ears, Nose, & Throat: No Symptoms Respiratory: No Symptoms, No Cough, No Dyspnea Cardiac: No Symptoms, No Chest Pain, No Edema, No Syncope Abdominal/Gastrointestinal: No Symptoms, No Abdominal Pain, No Nausea, No Vomiting, No Diarrhea Genitourinary Symptoms: No Symptoms, No Dysuria Musculoskeletal: No Symptoms, No Back Pain, No Neck Pain Skin: No Symptoms, No Rash Neurological: No Symptoms, No Dizziness, No Focal Weakness, No Sensory Changes Psychological: No Symptoms Endocrine: No Symptoms Hematologic/Lymphatic: No Symptoms Immunological/Allergic: No Symptoms All Other Systems: Reviewed and Negative - Past Medical History Pertinent Past Medical History: Yes Neurological History: No Pertinent History ENT History: No Pertinent History Cardiac History: No Pertinent History Respiratory History: No Pertinent History Endocrine Medical History: No Pertinent History Musculoskeletal History: No Pertinent History GI Medical History: No Pertinent History History: No Pertinent History Psycho-Social History: Anxiety, Other Female Reproductive Disorders: No Pertinent History Other Medical History: insomnia - Past Surgical History Past Surgical History: Yes Neuro Surgical History: No Pertinent History Cardiac: No Pertinent History Respiratory: No Pertinent History Gastrointestinal: No Pertinent History Genitourinary: No Pertinent History Musculoskeletal: No Pertinent History Female Surgical History: No Pertinent History Other Surgical History: cyst removed from sinisus Significant Family History: other (father had afib at age 19) - Female History Hx Last Menstrual Period: 09/11/2023 Hx Now: No - Social History Smoking Status: Never smoker How long have you smoked: 2 Exposure to second hand smoke: Yes Alcohol Use: None Drug Use: none Patient Lives Alone: No - Social Determinants of Health Will the patient participate in the screening: Yes Do you worry about a steady place to live?: No In the past 12 months,have you had to go without utilities?: No Transportation Issues: No Has anyone in your support network made you feel unsafe?: No Have you or anyone in your house had to go without enough: No - Nursing Vital Signs Nursing Vital Signs: Initial Vital Signs Temperature 98 F 02/23/24 15:20 Pulse Rate 93 H 02/23/24 15:20 Respiratory Rate 16 02/23/24 15:20 Blood Pressure 113/76 02/23/24 15:20 O2 Sat by Pulse Oximetry 98 02/23/24 15:20 Pain Scale Pain Intensity 6 - Physical Exam General Appearance: no apparent distress, alert Eye Exam: PERRL/EOMI, eyes nml inspection Ears, Nose, Throat Exam: normal ENT inspection, pharynx normal, moist mucous membranes Neck Exam: normal inspection, non-tender, supple, full range of motion Respiratory Exam: normal breath sounds, lungs clear, No respiratory distress Cardiovascular Exam: regular rate/rhythm, normal heart sounds Gastrointestinal/Abdomen Exam: soft, other (Right upper quadrant tenderness to palpation.), No tenderness, No mass Back Exam: normal inspection, normal range of motion, No CVA tenderness, No vertebral tenderness Extremity Exam: normal inspection, normal range of motion, pelvis stable Neurologic Exam: alert, oriented x 3, cooperative, normal mood/affect, nml cerebellar function, sensation nml, No motor deficits Skin Exam: normal color, warm, dry Lymphatic Exam: No adenopathy SpO2 Interpretation: normal SpO2: 98 O2 Delivery: Room Air - Course Nursing assessment & vital signs reviewed: Yes - CT Exams Abdomen/Pelvis CT Interpretation: Tele-radiologist Report (Compared to ER study 6 days ago mild worsening diffuse fecal stasis. No new acute findings) - Radiology Ultrasound Exam Gallbladder Ultrasound: tele radiology report (Contracted gallbladder otherwise no acute findings) Ordered Tests: Active Orders 24 hr Category Date Time Status ABDOMEN AND PELVIS W/0 CONTRAS [CT] Stat Exams 02/23/24 15:33 Taken GALLBLADDER [US] Stat Exams 02/23/24 15:31 Completed CBC W DIFF Stat Lab 02/23/24 15:45 Completed CMP Stat Lab 02/23/24 15:45 Completed HCG QUALITATIVE, URINE Stat Lab 02/23/24 17:11 Completed LIPASE Stat Lab 02/23/24 15:45 Completed TROPONIN Q4H Lab 02/23/24 15:45 Completed TROPONIN Q4H Lab 02/23/24 19:45 Ordered TROPONIN Q4H Lab 02/23/24 23:45 Ordered UA W/RFX UR CULTURE Stat Lab 02/23/24 17:11 Completed Medication Summary Generic Name Dose Route Start Last Admin Trade Name Izabel PRN Reason Stop Dose Admin Sodium Chloride 1,000 mls @ 100 mls/hr 02/23/24 15:45 02/23/24 16:25 Sodium Chloride 0.9% 1000 Ml IV 03/24/24 15:44 Not Given .Q10H KYLE Discontinued Medications Generic Name Dose Route Start Last Admin Trade Name Izabel PRN Reason Stop Dose Admin Acetaminophen 975 mg 02/23/24 16:15 02/23/24 16:41 Acetaminophen 325 Mg Tablet PO 02/23/24 16:16 975 mg STAT ONE Administration Acetaminophen Confirm 02/23/24 16:40 Acetaminophen 325 Mg Tablet Administered 02/23/24 16:41 Dose 975 mg .ROUTE .STK-MED ONE Ketorolac Tromethamine 30 mg 02/23/24 15:33 02/23/24 15:47 Ketorolac Tromethamine 30 Mg/Ml Inj IV 02/23/24 15:34 Not Given STAT ONE Lab/Rad Data: Laboratory Result Diagrams 02/23/24 15:45 02/23/24 15:45 Laboratory Results 02/23/24 02/23/24 02/23/24 Range/Units 17:11 17:11 15:45 WBC (3.98-10.04) x10^3/uL RBC (3.93-5.22) x10^6/uL Hgb (11.2-15.7) g/dL Hct (34.1-44.9) % MCV (79.4-94.8) fL MCH (25.6-32.2) pg MCHC (32.2-35.5) g/dL RDW (11.7-14.4) % Plt Count (182-369) x10^3/uL MPV (9.4-12.3) fL Gran % (34.0-71.1) % Immature Gran % (Auto) (0.001-0.429) % Nucleat RBC Rel Count (0.00-0.2) % Eos # (Auto) (0.04-0.36) x10^3/uL Immature Gran # (Auto) (0.001-0.031) x10^3u/L Absolute Lymphs (auto) (1.18-3.74) x10^3/uL Absolute Monos (auto) (0.24-0.86) x10^3/uL Absolute Nucleated RBC (0.00-0.012) x10^3u/L Lymphocytes % (19.3-51.7) % Monocytes % (4.7-12.5) % Eosinophils % (0.7-5.8) % Basophils % (0.1-1.2) % Absolute Granulocytes (1.56-6.13) x10^3/uL Basophils # (0.01-0.08) x10^3/uL Sodium (135-145) mmol/L Potassium (3.5-5.1) mmol/L Chloride (98-107) mmol/L Carbon Dioxide (22-30) mmol/L Anion Gap (5-15) MEQ/L BUN (7-17) mg/dL Creatinine (0.52-1.04) mg/dL Estimated GFR ML/MIN Glucose (74-106) mg/dL Calcium (8.4-10.2) mg/dL Total Bilirubin (0.2-1.3) mg/dL AST (14-36) U/L ALT (0-35) U/L Alkaline Phosphatase (38-126) U/L Troponin I < 0.012 (0.000-0.033) ng/mL Serum Total Protein (6.3-8.2) g/dL Albumin (3.5-5.0) g/dL Lipase (23-300) U/L Urine Color Yellow (Yellow) Urine Appearance Clear (Clear) Urine pH 6.5 (4.6-8.0) Ur Specific [place] 1.025 (1.005-1.030) Urine Protein Negative (Negative) Urine Glucose (UA) Negative (Negative) mg/dL Urine Ketones Negative (Negative) Urine Blood Negative (Negative) Urine Nitrite Negative (Negative) Urine Bilirubin Negative (Negative) Urine Urobilinogen 1.0 A (0.2) mg/dL Ur Leukocyte Esterase Negative (Negative) U Hyaline Cast (Auto) NONE SEEN (0-2) /LPF Urine Microscopic RBC 0-2 (0-5) /HPF Urine Microscopic WBC 0-2 (0-5) /HPF Ur Epithelial Cells None Seen (None Seen) /HPF Urine Bacteria None Seen (None Seen) /HPF Urine Culture Reflexed NO (NO) Urine HCG, Qual NEGATIVE (NEGATIVE) 02/23/24 02/23/24 Range/Units 15:45 15:45 WBC 7.9 (3.98-10.04) x10^3/uL RBC 4.95 (3.93-5.22) x10^6/uL Hgb 13.6 (11.2-15.7) g/dL Hct 42.2 (34.1-44.9) % MCV 85.3 (79.4-94.8) fL MCH 27.5 (25.6-32.2) pg MCHC 32.2 (32.2-35.5) g/dL RDW 13.0 (11.7-14.4) % Plt Count 217 (182-369) x10^3/uL MPV 9.7 (9.4-12.3) fL Gran % 65.1 (34.0-71.1) % Immature Gran % (Auto) 0.3 (0.001-0.429) % Nucleat RBC Rel Count 0.0 (0.00-0.2) % Eos # (Auto) 0.11 (0.04-0.36) x10^3/uL Immature Gran # (Auto) 0.02 (0.001-0.031) x10^3u/L Absolute Lymphs (auto) 2.03 (1.18-3.74) x10^3/uL Absolute Monos (auto) 0.53 (0.24-0.86) x10^3/uL Absolute Nucleated RBC 0.00 (0.00-0.012) x10^3u/L Lymphocytes % 25.9 (19.3-51.7) % Monocytes % 6.8 (4.7-12.5) % Eosinophils % 1.4 (0.7-5.8) % Basophils % 0.5 (0.1-1.2) % Absolute Granulocytes 5.12 (1.56-6.13) x10^3/uL Basophils # 0.04 (0.01-0.08) x10^3/uL Sodium 140 (135-145) mmol/L Potassium 3.8 (3.5-5.1) mmol/L Chloride 107 (98-107) mmol/L Carbon Dioxide 22 (22-30) mmol/L Anion Gap 15.2 H (5-15) MEQ/L BUN 13 (7-17) mg/dL Creatinine 0.77 (0.52-1.04) mg/dL Estimated GFR 113.2 ML/MIN Glucose 119 H (74-106) mg/dL Calcium 9.4 (8.4-10.2) mg/dL Total Bilirubin 0.90 (0.2-1.3) mg/dL AST 26 (14-36) U/L ALT 26 (0-35) U/L Alkaline Phosphatase 158 H (38-126) U/L Troponin I (0.000-0.033) ng/mL Serum Total Protein 7.1 (6.3-8.2) g/dL Albumin 4.4 (3.5-5.0) g/dL Lipase 126 (23-300) U/L Urine Color (Yellow) Urine Appearance (Clear) Urine pH (4.6-8.0) Ur Specific [place] (1.005-1.030) Urine Protein (Negative) Urine Glucose (UA) (Negative) mg/dL Urine Ketones (Negative) Urine Blood (Negative) Urine Nitrite (Negative) Urine Bilirubin (Negative) Urine Urobilinogen (0.2) mg/dL Ur Leukocyte Esterase (Negative) U Hyaline Cast (Auto) (0-2) /LPF Urine Microscopic RBC (0-5) /HPF Urine Microscopic WBC (0-5) /HPF Ur Epithelial Cells (None Seen) /HPF Urine Bacteria (None Seen) /HPF Urine Culture Reflexed (NO) Urine HCG, Qual (NEGATIVE) - Progress Progress: improved Progress Note: 18-year-old female presents to our ED with right upper quadrant pain. Physical exam revealed some right upper quadrant pain. Right upper quadrant ultrasound negative for stones and acute cholecystitis. Patient advised that she will likely require a HIDA scan as an outpatient. Patient will follow-up with her primary care provider for a HIDA scan order. Laboratory workup otherwise unremarkable. CT abdomen pelvis shows worsening fecal stasis as compared to the last scan done 6 days ago. Patient reassessed she is resting comfortably. No active pain at this time. Vital stable will discharge home. Patient agrees to follow-up with her primary care doctor within 48 hours for reevaluation. Portions of this note were created with voice recognition technology. There may be grammatical, spelling, punctuation or sound alike errors Complexity problem addressed is moderate acute complicated. No critical care time. Complex data reviewed and analyzed as moderate. Test ordered test reviewed results analyzed and correlated clinically with history and physical exam. Risk of complication and or risk of morbidity/mortality patient manag ement is low. Vital stable. Time spent to discharge patient is approximately 20 minutes. Plan of care established for shared decision making. No social determinants of health present to impede follow-up. Portions of this note were created with voice recognition technology. There may be grammatical, spelling, punctuation or sound alike errors 02/23/24 18:59 Counseled pt/family regarding: lab results, diagnosis, need for follow-up, rad results - Departure Departure Disposition: Home Clinical Impression: Mild diffuse fecal stasis, Right upper quadrant pain Condition: Stable Critical Care Time: No Referrals: TORI MACHADO [Primary Care Provider] - Follow up/PCP as directed Instructions: Abdominal pain Additional Instructions: Discharge/Care Plan KARIS LEVY was seen on 02/23/24 in the Emergency Room. The patient was counseled regarding Diagnosis,Lab results, Imaging studies, need for follow up and when to return to the Emergency Room. Prescriptions given: Discharge Note I have spoken with the patient and/or caregivers. I have explained the patient's condition, diagnosis and treatment plan based on the information available to me at this time. I have answered the patient's and/or caregiver's questions and addressed any concerns. The patient and/or caregivers have as good understanding of the patient's diagnosis, condition and treatment plan as can be expected at this point. The vital signs have been stable. The patient's condition is stable and appropriate for discharge from the emergency department. The patient will pursue further outpatient evaluation with the primary care physician or other designated or consulting physician as outlined in the discharge instructions. The patient and/or caregivers are agreeable to this plan of care and follow-up instructions have been explained in detail. The patient and/or caregivers have received these instruction. The patient/and or caregivers are aware that any significant change in condition or worsening of symptoms should prompt an immediate return to this or the closest emergency department or call 911.
[2024-02-23 15:45] VITALS: TEMP 98
[2024-02-23] MEDS: TORAdol 30 mg Injection IV ONE (15:47)
[2024-02-23 15:52] LABS: Absolute Neutrophil Ct (ANC) 5.12 x10^3/uL (1.56-6.13); BASOPHIL % 0.5 % (0.1-1.2); Basophil (Absolute #) 0.04 x10^3/uL (0.01-0.08); Eosinophil % 1.4 % (0.7-5.8); Eosinophil (Absolute #) 0.11 x10^3/uL (0.04-0.36); Hematocrit 42.2 % (34.1-44.9); Hemoglobin 13.6 g/dL (11.2-15.7); IMMATURE GRAN # 0.02 x10^3u/L (0.001-0.031); IMMATURE GRAN % 0.3 % (0.001-0.429); Lymphocyte (Absolute #) 2.03 x10^3/uL (1.18-3.74); Lymphocytes % 25.9 % (19.3-51.7); Mean Cell Volume 85.3 fL (79.4-94.8); Mean Corpuscular Hemoglobin 27.5 pg (25.6-32.2); Mean Corpuscular Hgb Concent. 32.2 g/dL (32.2-35.5); Mean Platelet Volume 9.7 fL (9.4-12.3); Monocyte (Absolute #) 0.53 x10^3/uL (0.24-0.86); Monocytes % 6.8 % (4.7-12.5); Neutrophil % 65.1 % (34.0-71.1); Platelet Count 217 x10^3/uL (182-369); Red Blood Count 4.95 x10^6/uL (3.93-5.22); White Blood Count 7.9 x10^3/uL (3.98-10.04)
[2024-02-23 16:12] LABS: ALBUMIN 4.4 g/dL (3.5-5.0); ANION GAP 15.2 MEQ/L (5-15); BILIRUBIN,TOTAL 0.9 mg/dL (0.2-1.3); Calcium 9.4 mg/dL (8.4-10.2); Creatinine 1 0.77 mg/dL (0.52-1.04); EST GLOMERULAR FILTRATION RATE 113.2 ML/MIN; Potassium 3.8 mmol/L (3.5-5.1); Total Protein 7.1 g/dL (6.3-8.2)
[2024-02-23] MEDS: Sodium Chloride 0.9% 1000 ML 1,000 ML IV SCH (16:25)
--- NOTE | 2024-02-23 16:30 | XRAY ---
Indication: Right abdomen pain. Two-dimensional gallbladder sonogram performed. Comparison: None Gallbladder contracted without gallstones or pericholecystic fluid. Patient apparently adequately prepped/NPO for exam. Common bile duct measures 3.2 mm. No intrahepatic biliary distention. Remaining visualized liver and right kidney sonographically unremarkable. Right kidney measures 9.4 x 3.9 x 4.8 cm. Impression: Contracted gallbladder. Remaining gallbladder sonogram is negative.
[2024-02-23] MEDS ORDERED: TYLENOL 325 MG ONE (16:40)
[2024-02-23] MEDS: TYLENOL 325 MG PO ONE (16:41)
[2024-02-23 17:37] LABS: HCG URINE TEST NEGATIVE (NEGATIVE)
[2024-02-23 17:49] LABS: Appearance Clear (Clear); Bacteria None Seen /HPF (None Seen); Bilirubin Negative (Negative); Blood Negative (Negative); Epithelial Cells None Seen /HPF (None Seen); Glucose, Urine Negative (Negative); Hyaline Casts NONE SEEN /LPF (0-2); Ketones Negative (Negative); Leukocyte Esterase Negative (Negative); Nitrite Negative (Negative); Ph 6.5 (4.6-8.0); Protein,Urine Dip Negative (Negative); RBC 0-2 /HPF (0-5); Specific Gravity 1.025 (1.005-1.030); WBC 0-2 /HPF (0-5)
[2024-02-23 17:56] LABS: ADD URINE CULTURE? NO (NO)
[2024-02-23 18:46] VITALS: BP 103/64; PULSE 63; RESP 17
[2024-02-23 18:55] VITALS: O2SAT 98
--- NOTE | 2024-02-24 08:41 | XRAY ---
Indication: Right upper quadrant pain. Multiple contiguous axial images obtained through the abdomen and pelvis without contrast. Comparison: February 17, 2024 Lung bases remain clear. Heart not enlarged. Stomach now mildly distended with food/fluid. Gallbladder contracted without gallstones. Noncontrasted stomach and bowel loops appear nonobstructed again with normal appendix. Worsening mild diffuse scattered colonic fecal debris including rectum. No free fluid/air. Remaining liver, gallbladder, pancreas, spleen, adrenal glands, kidneys, ureters, bladder, uterus, and aorta are unremarkable for noncontrast exam. Impression: Worsening mild diffuse fecal stasis. Remaining CT abdomen/pelvis without contrast exam is again negative.
== END 2024-02-23 19:04 | disposition home or self-care (01) ==
LOC: ED 15:15
DX: K59.89 Other specified functional intestinal disorders (principal); R10.11 Right upper quadrant pain; Z79.899 Other long term (current) drug therapy
CPT/HCPCS: 36415; 74176; 76705; 80053; 81001; 81025; 83690; 84484; 85025; 99283; A9270-GY

== ENCOUNTER 2024-03-14 12:52 | Emergency (ER) | payer BC ==
[2024-03-14 13:20] VITALS: PULSE 92; TEMP 98.2; O2SAT 99
[2024-03-14 13:46] VITALS: BP 117/79
[2024-03-14 13:47] LABS: HCG URINE TEST NEGATIVE (NEGATIVE)
[2024-03-14] MEDS ORDERED: TORAdol 30 mg Injection IV ONE (13:52)
[2024-03-14 13:59] LABS: Appearance Clear (Clear); Bilirubin Small (Negative); Blood Negative (Negative); Epithelial Cells None Seen /HPF (None Seen); Glucose, Urine Negative (Negative); Hyaline Casts NONE SEEN /LPF (0-2); Ketones Negative (Negative); Leukocyte Esterase Moderate (Negative); Nitrite Positive (Negative); Ph 6.5 (4.6-8.0); Protein,Urine Dip Negative (Negative); RBC 0-2 /HPF (0-5); Specific Gravity 1.015 (1.005-1.030); WBC 21-50 /HPF (0-5)
[2024-03-14 14:01] LABS: ADD URINE CULTURE? YES (NO)
--- NOTE | 2024-03-14 14:03 | ERPHSYRPT ---
- History of Present Illness Time Seen by Provider: 03/14/24 12:54 Patient Subjective Stated Complaint: pt began violently vomiting approx 4 days ago, pt continues to have nausea, painful urination and pain without urination, abdominal pain, blood in urine Triage Nursing Assessment: Pt brought self to the ER, vitals wnl, rates pain as 5/10, pulses normal, skin n/w/d, no difficulty breathing, doesn't appear to be in any distress Physician History: 18 years old female presented to the ER with complaint of suprapubic dull aching to sharp pain which last for few seconds to minutes and improves for the last few days. Unable to correlate with any aggravating or relieving factors. Does have some difficulty urination/dysuria/frequency and hematuria as well. Reports having vomiting multiple x 4 days ago. No diarrhea. Denies any constipation. No fever or chills reported. Allergies/Adverse Reactions: amoxicillin Allergy (Intermediate, Verified 03/14/24 13:18) Difficulty Breathing cephalexin [From Keflex] Allergy (Intermediate, Verified 03/14/24 13:18) Rash cetirizine [From Zyrtec] Allergy (Intermediate, Verified 03/14/24 13:18) Hives metronidazole Allergy (Intermediate, Verified 03/14/24 13:18) Difficulty Breathing AND RASH trazodone Allergy (Intermediate, Verified 03/14/24 13:18) Hives ketorolac [From Toradol] Allergy (Mild, Verified 03/14/24 13:18) Muscle Aches guaifenesin [From Mucinex] Allergy (Verified 03/14/24 13:18) Rash RASH Home Medications: Paroxetine HCl 20 mg [Paxil 20 MG] 40 mg PO HS MDD 1 tab hs 09/23/17 [History] clonazePAM [Clonazepam] 0.5 mg PO HS 04/01/23 [History] Medroxyprogesterone Acetate 1 ml IM CLARIFY 02/23/24 [History] Hx Tetanus, Diphtheria Vaccination/Date Given: No Hx Influenza Vaccination/Date Given: No Hx Pneumococcal Vaccination/Date Given: No Travel Risk - International Travel Have you traveled outside of the country in past 3 weeks: No - Emerging Infectious Disease Are you exhibiting symptoms associated with any current EIDs: No Symptoms: Vomitting - Review of Systems Constitutional: No Symptoms Ears, Nose, & Throat: No Symptoms Respiratory: No Symptoms Cardiac: No Symptoms Abdominal/Gastrointestinal: Abdominal Pain, Nausea, Vomiting Genitourinary Symptoms: Dysuria, Frequency, Hematuria Musculoskeletal: No Symptoms Skin: No Symptoms Neurological: No Symptoms Psychological: No Symptoms Hematologic/Lymphatic: No Symptoms Immunological/Allergic: No Symptoms - Past Medical History Pertinent Past Medical History: Yes Neurological History: No Pertinent History ENT History: No Pertinent History Cardiac History: No Pertinent History Respiratory History: No Pertinent History Endocrine Medical History: No Pertinent History Musculoskeletal History: No Pertinent History GI Medical History: No Pertinent History History: No Pertinent History Psycho-Social History: Anxiety, Other Female Reproductive Disorders: No Pertinent History Other Medical History: insomnia - Past Surgical History Past Surgical History: Yes Neuro Surgical History: No Pertinent History Cardiac: No Pertinent History Respiratory: No Pertinent History Gastrointestinal: No Pertinent History Genitourinary: No Pertinent History Musculoskeletal: No Pertinent History Female Surgical History: No Pertinent History Other Surgical History: cyst removed from sinisus Significant Family History: other (father had afib at age 19) - Female History Hx Last Menstrual Period: on depo Hx Now: No - Social History Smoking Status: Current every day smoker How long have you smoked: 2 Exposure to second hand smoke: No Alcohol Use: None Drug Use: none Patient Lives Alone: No - Social Determinants of Health Will the patient participate in the screening: Yes Do you worry about a steady place to live?: No Do you have any problems with any of the following?: No known problems In the past 12 months,have you had to go without utilities?: No Transportation Issues: No Has anyone in your support network made you feel unsafe?: No Have you or anyone in your house had to go without enough: No - Nursing Vital Signs Nursing Vital Signs: Initial Vital Signs Temperature 98.2 F 03/14/24 13:08 Pulse Rate 92 H 03/14/24 13:08 Blood Pressure 123/78 03/14/24 13:08 O2 Sat by Pulse Oximetry 99 03/14/24 13:08 Pain Scale Pain Intensity 6 - Physical Exam General Appearance: no apparent distress Eye Exam: PERRL/EOMI Ears, Nose, Throat Exam: normal ENT inspection Neck Exam: normal inspection, full range of motion Respiratory Exam: normal breath sounds, lungs clear Cardiovascular Exam: regular rate/rhythm, normal heart sounds Gastrointestinal/Abdomen Exam: soft, normal bowel sounds, tenderness (Minimal tenderness suprapubic. No right or left lower quadrant tenderness. No guarding or rebound) Extremity Exam: normal inspection, normal range of motion Neurologic Exam: alert, oriented x 3, cooperative Skin Exam: normal color SpO2 Interpretation: normal SpO2: 99 O2 Delivery: Room Air Ordered Tests: Active Orders 24 hr Category Date Time Status IV Insertion STAT Care 03/14/24 13:52 Active NPO (ED) STAT Care 03/14/24 13:52 Active CBC W DIFF Stat Lab 03/14/24 14:08 Completed CMP Stat Lab 03/14/24 14:08 Completed CULTURE,URINE Stat Lab 03/14/24 13:45 Received HCG QUALITATIVE, URINE Stat Lab 03/14/24 13:45 Completed LIPASE Stat Lab 03/14/24 14:08 Completed UA W/RFX UR CULTURE Stat Lab 03/14/24 13:45 Completed Medication Summary Discontinued Medications Generic Name Dose Route Start Last Admin Trade Name Todq PRN Reason Stop Dose Admin Acetaminophen 975 mg 03/14/24 14:25 03/14/24 14:42 Acetaminophen 325 Mg Tablet PO 03/14/24 14:26 975 mg STAT STA Administration Acetaminophen Confirm 03/14/24 14:38 Acetaminophen 325 Mg Tablet Administered 03/14/24 14:39 Dose 975 mg .ROUTE .STK-MED ONE Sodium Chloride 1,000 mls @ 999 mls/hr 03/14/24 13:52 03/14/24 14:23 Sodium Chloride 0.9% 1000 Ml IV 03/14/24 14:52 999 mls/hr .Q1H1M STA Administration Sodium Chloride Confirm 03/14/24 14:21 Sodium Chloride 0.9% 1000 Ml Administered 03/14/24 14:22 Dose 1,000 mls @ ud .ROUTE .STK-MED ONE Ketorolac Tromethamine 30 mg 03/14/24 13:52 Ketorolac Tromethamine 30 Mg/Ml Inj IV 03/14/24 13:53 STAT ONE Ketorolac Tromethamine Confirm 03/14/24 14:21 Ketorolac Tromethamine 30 Mg/Ml Inj Administered 03/14/24 14:22 Dose 30 mg .ROUTE .STK-MED ONE Trimethoprim/Sulfamethoxazole 1 tab 03/14/24 14:40 03/14/24 14:45 Smz/Tmp Ds Tablet 1 Tablet PO 03/14/24 14:41 1 tab STAT STA Administration Trimethoprim/Sulfamethoxazole Confirm 03/14/24 14:44 Smz/Tmp Ds Tablet 1 Tablet Administered 03/14/24 14:45 Dose 1 tab PO .STK-MED ONE Lab/Rad Data: Laboratory Result Diagrams 03/14/24 14:08 03/14/24 14:08 Laboratory Results 03/14/24 03/14/24 03/14/24 Range/Units 14:08 14:08 13:45 WBC 8.5 (3.98-10.04) x10^3/uL RBC 4.85 (3.93-5.22) x10^6/uL Hgb 13.4 (11.2-15.7) g/dL Hct 41.5 (34.1-44.9) % MCV 85.6 (79.4-94.8) fL MCH 27.6 (25.6-32.2) pg MCHC 32.3 (32.2-35.5) g/dL RDW 13.0 (11.7-14.4) % Plt Count 209 (182-369) x10^3/uL MPV 10.3 (9.4-12.3) fL Gran % 68.3 (34.0-71.1) % Immature Gran % (Auto) 0.4 (0.001-0.429) % Nucleat RBC Rel Count 0.0 (0.00-0.2) % Eos # (Auto) 0.10 (0.04-0.36) x10^3/uL Immature Gran # (Auto) 0.03 (0.001-0.031) x10^3u/L Absolute Lymphs (auto) 1.95 (1.18-3.74) x10^3/uL Absolute Monos (auto) 0.56 (0.24-0.86) x10^3/uL Absolute Nucleated RBC 0.00 (0.00-0.012) x10^3u/L Lymphocytes % 22.9 (19.3-51.7) % Monocytes % 6.6 (4.7-12.5) % Eosinophils % 1.2 (0.7-5.8) % Basophils % 0.6 (0.1-1.2) % Absolute Granulocytes 5.83 (1.56-6.13) x10^3/uL Basophils # 0.05 (0.01-0.08) x10^3/uL Sodium 140 (135-145) mmol/L Potassium 3.4 L (3.5-5.1) mmol/L Chloride 104 (98-107) mmol/L Carbon Dioxide 25 (22-30) mmol/L Anion Gap 14.1 (5-15) MEQ/L BUN 11 (7-17) mg/dL Creatinine 0.83 (0.52-1.04) mg/dL Estimated GFR 103.4 ML/MIN Glucose 97 (74-106) mg/dL Calcium 9.3 (8.4-10.2) mg/dL Total Bilirubin 0.90 (0.2-1.3) mg/dL AST 28 (14-36) U/L ALT 19 (0-35) U/L Alkaline Phosphatase 152 H (38-126) U/L Serum Total Protein 7.5 (6.3-8.2) g/dL Albumin 4.4 (3.5-5.0) g/dL Lipase 89 (23-300) U/L Urine Color (Yellow) Urine Appearance (Clear) Urine pH (4.6-8.0) Ur Specific [place] (1.005-1.030) Urine Protein (Negative) Urine Glucose (UA) (Negative) mg/dL Urine Ketones (Negative) Urine Blood (Negative) Urine Nitrite (Negative) Urine Bilirubin (Negative) Urine Urobilinogen (0.2) mg/dL Ur Leukocyte Esterase (Negative) U Hyaline Cast (Auto) (0-2) /LPF Urine Microscopic RBC (0-5) /HPF Urine Microscopic WBC (0-5) /HPF Ur Epithelial Cells (None Seen) /HPF Urine Bacteria (None Seen) /HPF Urine Culture Reflexed (NO) Urine HCG, Qual NEGATIVE (NEGATIVE) 03/14/24 Range/Units 13:45 WBC (3.98-10.04) x10^3/uL RBC (3.93-5.22) x10^6/uL Hgb (11.2-15.7) g/dL Hct (34.1-44.9) % MCV (79.4-94.8) fL MCH (25.6-32.2) pg MCHC (32.2-35.5) g/dL RDW (11.7-14.4) % Plt Count (182-369) x10^3/uL MPV (9.4-12.3) fL Gran % (34.0-71.1) % Immature Gran % (Auto) (0.001-0.429) % Nucleat RBC Rel Count (0.00-0.2) % Eos # (Auto) (0.04-0.36) x10^3/uL Immature Gran # (Auto) (0.001-0.031) x10^3u/L Absolute Lymphs (auto) (1.18-3.74) x10^3/uL Absolute Monos (auto) (0.24-0.86) x10^3/uL Absolute Nucleated RBC (0.00-0.012) x10^3u/L Lymphocytes % (19.3-51.7) % Monocytes % (4.7-12.5) % Eosinophils % (0.7-5.8) % Basophils % (0.1-1.2) % Absolute Granulocytes (1.56-6.13) x10^3/uL Basophils # (0.01-0.08) x10^3/uL Sodium (135-145) mmol/L Potassium (3.5-5.1) mmol/L Chloride (98-107) mmol/L Carbon Dioxide (22-30) mmol/L Anion Gap (5-15) MEQ/L BUN (7-17) mg/dL Creatinine (0.52-1.04) mg/dL Estimated GFR ML/MIN Glucose (74-106) mg/dL Calcium (8.4-10.2) mg/dL Total Bilirubin (0.2-1.3) mg/dL AST (14-36) U/L ALT (0-35) U/L Alkaline Phosphatase (38-126) U/L Serum Total Protein (6.3-8.2) g/dL Albumin (3.5-5.0) g/dL Lipase (23-300) U/L Urine Color Dark Yellow A (Yellow) Urine Appearance Clear (Clear) Urine pH 6.5 (4.6-8.0) Ur Specific [place] 1.015 (1.005-1.030) Urine Protein Negative (Negative) Urine Glucose (UA) Negative (Negative) mg/dL Urine Ketones Negative (Negative) Urine Blood Negative (Negative) Urine Nitrite Positive A (Negative) Urine Bilirubin Small A (Negative) Urine Urobilinogen 1.0 A (0.2) mg/dL Ur Leukocyte Esterase Moderate A (Negative) U Hyaline Cast (Auto) NONE SEEN (0-2) /LPF Urine Microscopic RBC 0-2 (0-5) /HPF Urine Microscopic WBC 21-50 A (0-5) /HPF Ur Epithelial Cells None Seen (None Seen) /HPF Urine Bacteria Rare A (None Seen) /HPF Urine Culture Reflexed YES (NO) Urine HCG, Qual (NEGATIVE) - Progress Progress: improved, re-examined Progress Note: 03/14/24 14:53 18 years old is evaluated in the ER for suprapubic discomfort and UTI symptoms. She is given Tylenol for symptomatic relief. Workup showed normal white count, unremarkable chemistries, normal kidney functions and liver enzymes. Urinalysis is positive for UTI. Started on Bactrim. I do not think patient needs imaging based on history/exam findings and current labs. I believe patient has acute cystitis. Recommended increase hydration and outpatient follow-up. Discussed signs symptoms of worsening needing return to ER which she seems understanding. Stable for discharge. Counseled pt/family regarding: lab results, diagnosis, need for follow-up Medical Desision Making - Diagnostic Testing Diagnostic test were ordered, analyzed, and reviewed by me: Yes - Risk of complications The pt has a mod risk of morbidity or mortality based on: Need for prescription drug management - Departure Departure Disposition: Home Clinical Impression: Acute cystitis Condition: Stable Critical Care Time: No Referrals: TORI MACHADO [Primary Care Provider] - Follow up with PCP 1 day Instructions: Urinary Tract Infection, Adult (DC) Additional Instructions: Take Tylenol as needed. Drink plenty of fluids to keep yourself well-hydrated. Follow-up with primary care for reevaluation. Return to ER for worsening of UTI symptoms or if develop intractable abdominal pain/fever chills/vomiting etc. Prescriptions: Smz/Tmp Ds Tablet [Bactrim Ds Tablet] 1 udtab PO BID #14 tablet
[2024-03-14 14:08] LABS: Absolute Neutrophil Ct (ANC) 5.83 x10^3/uL (1.56-6.13); BASOPHIL % 0.6 % (0.1-1.2); Basophil (Absolute #) 0.05 x10^3/uL (0.01-0.08); Eosinophil % 1.2 % (0.7-5.8); Hematocrit 41.5 % (34.1-44.9); Hemoglobin 13.4 g/dL (11.2-15.7); IMMATURE GRAN # 0.03 x10^3u/L (0.001-0.031); IMMATURE GRAN % 0.4 % (0.001-0.429); Lymphocyte (Absolute #) 1.95 x10^3/uL (1.18-3.74); Lymphocytes % 22.9 % (19.3-51.7); Mean Cell Volume 85.6 fL (79.4-94.8); Mean Corpuscular Hemoglobin 27.6 pg (25.6-32.2); Mean Corpuscular Hgb Concent. 32.3 g/dL (32.2-35.5); Mean Platelet Volume 10.3 fL (9.4-12.3); Monocyte (Absolute #) 0.56 x10^3/uL (0.24-0.86); Monocytes % 6.6 % (4.7-12.5); Neutrophil % 68.3 % (34.0-71.1); Platelet Count 209 x10^3/uL (182-369); Red Blood Count 4.85 x10^6/uL (3.93-5.22); White Blood Count 8.5 x10^3/uL (3.98-10.04)
[2024-03-14 14:17] LABS: Bacteria Rare /HPF (None Seen)
[2024-03-14 14:21] LABS: ALBUMIN 4.4 g/dL (3.5-5.0); ANION GAP 14.1 MEQ/L (5-15); BILIRUBIN,TOTAL 0.9 mg/dL (0.2-1.3); Calcium 9.3 mg/dL (8.4-10.2); Creatinine 1 0.83 mg/dL (0.52-1.04); EST GLOMERULAR FILTRATION RATE 103.4 ML/MIN; Potassium 3.4 mmol/L (3.5-5.1); Total Protein 7.5 g/dL (6.3-8.2)
[2024-03-14] MEDS ORDERED: TORAdol 30 mg Injection ONE (14:21)
[2024-03-14] MEDS ORDERED: Sodium Chloride 0.9% 1000 ML 1,000 ML ONE (14:21)
[2024-03-14] MEDS: Sodium Chloride 0.9% 1000 ML 1,000 ML IV STA (14:23)
[2024-03-14] MEDS ORDERED: TYLENOL 325 MG ONE (14:38)
[2024-03-14] MEDS: TYLENOL 325 MG PO STA (14:42)
[2024-03-14] MEDS ORDERED: BACTRIM DS TABLET PO ONE (14:44)
[2024-03-14] MEDS: BACTRIM DS TABLET PO STA (14:45)
== END 2024-03-14 15:37 | disposition home or self-care (01) ==
LOC: ED 12:52
DX: N30.00 Acute cystitis without hematuria (principal); R10.2 Pelvic and perineal pain; R30.0 Dysuria; Z79.899 Other long term (current) drug therapy; Z72.0 Tobacco use
CPT/HCPCS: 36000; 36415; 80053; 81001; 81025; 83690; 85025; 87077; 87086; 87186; 96360; 99284; J1885; A9270-GY

== ENCOUNTER 2024-04-18 14:22 | Emergency (ER) | payer BC ==
[2024-04-18 14:45] VITALS: TEMP 98
--- NOTE | 2024-04-18 15:00 | ERPHSYRPT ---
- History of Present Illness Time Seen by Provider: 04/18/24 14:26 Source: patient Exam Limitations: no limitations Patient Subjective Stated Complaint: C/O HTN. Indicates she was at her doctor's office to change her control and was instructed to go to the ER due to HTN. Triage Nursing Assessment: Patient ambulated back to ER without difficulties. She is alert and oriented. No SOB. Skin tone normal. B/P WNL. Heart rate elevated. Physician History: Patient states that she went to her PCP for control pills. She also has a UTI. They change her antibiotic based on the sensitivity report. Patient was sent here for tachycardia and high blood pressure. Patient's pulse and blood pressure are only slightly elevated here in the ER. Patient says by the way I have some abdominal pain and chest pain also. Timing/Duration: today Severity: mild Modifying Factors: Improves With: nothing Associated Symptoms: nausea, abdominal pain, chest pain Allergies/Adverse Reactions: amoxicillin Allergy (Intermediate, Verified 04/18/24 14:35) Difficulty Breathing cephalexin [From Keflex] Allergy (Intermediate, Verified 04/18/24 14:35) Rash cetirizine [From Zyrtec] Allergy (Intermediate, Verified 04/18/24 14:35) Hives metronidazole Allergy (Intermediate, Verified 04/18/24 14:35) Difficulty Breathing AND RASH trazodone Allergy (Intermediate, Verified 04/18/24 14:35) Hives ketorolac [From Toradol] Allergy (Mild, Verified 04/18/24 14:35) Muscle Aches guaifenesin [From Mucinex] Allergy (Verified 04/18/24 14:35) Rash RASH Home Medications: Paroxetine HCl 20 mg [Paxil 20 MG] 40 mg PO HS MDD 1 tab hs 09/23/17 [History] clonazePAM [Clonazepam] 0.5 mg PO HS 04/01/23 [History] Hx Tetanus, Diphtheria Vaccination/Date Given: Yes Hx Influenza Vaccination/Date Given: No Hx Pneumococcal Vaccination/Date Given: No Immunizations Up to Date: Yes Travel Risk - International Travel Have you traveled outside of the country in past 3 weeks: No - Emerging Infectious Disease Are you exhibiting symptoms associated with any current EIDs: Yes Symptoms: Abdominal Pain - Review of Systems Constitutional: No Fever, No Chills Eyes: No Symptoms Ears, Nose, & Throat: No Symptoms Respiratory: No Cough, No Dyspnea Cardiac: Chest Pain, No Edema, No Syncope Abdominal/Gastrointestinal: Abdominal Pain, No Nausea, No Vomiting, No Diarrhea Genitourinary Symptoms: No Dysuria Musculoskeletal: No Back Pain, No Neck Pain Skin: No Rash Neurological: No Dizziness, No Focal Weakness, No Sensory Changes Psychological: No Symptoms Endocrine: No Symptoms All Other Systems: Reviewed and Negative - Past Medical History Pertinent Past Medical History: Yes Neurological History: No Pertinent History ENT History: No Pertinent History Cardiac History: No Pertinent History Respiratory History: No Pertinent History Endocrine Medical History: No Pertinent History Musculoskeletal History: No Pertinent History GI Medical History: No Pertinent History History: No Pertinent History Psycho-Social History: Anxiety, Other Female Reproductive Disorders: No Pertinent History Other Medical History: insomnia - Past Surgical History Past Surgical History: Yes Neuro Surgical History: No Pertinent History Cardiac: No Pertinent History Respiratory: No Pertinent History Gastrointestinal: No Pertinent History Genitourinary: No Pertinent History Musculoskeletal: No Pertinent History Female Surgical History: No Pertinent History Other Surgical History: cyst removed from sinus Significant Family History: other (father had afib at age 19) - Female History Hx Last Menstrual Period: unknown Hx Now: (States not sure) - Social History Smoking Status: Current every day smoker How long have you smoked: 2 Exposure to second hand smoke: No Alcohol Use: None Drug Use: none Patient Lives Alone: No - Social Determinants of Health Will the patient participate in the screening: Declined to provide - Nursing Vital Signs Nursing Vital Signs: Initial Vital Signs Pulse Rate 89 04/18/24 14:33 Respiratory Rate 15 04/18/24 14:33 Blood Pressure 132/86 04/18/24 14:33 Pain Scale Pain Intensity 8 - Physical Exam General Appearance: no apparent distress, alert Eye Exam: PERRL/EOMI, eyes nml inspection Ears, Nose, Throat Exam: normal ENT inspection, TMs normal, pharynx normal, moist mucous membranes Neck Exam: normal inspection, non-tender, supple, full range of motion Respiratory Exam: normal breath sounds, lungs clear, No respiratory distress Cardiovascular Exam: regular rate/rhythm, normal heart sounds, normal peripheral pulses Gastrointestinal/Abdomen Exam: soft, normal bowel sounds, No tenderness, No mass Back Exam: normal inspection, normal range of motion, No CVA tenderness, No vertebral tenderness Extremity Exam: normal inspection, normal range of motion, pelvis stable Neurologic Exam: alert, oriented x 3, cooperative, normal mood/affect, nml cerebellar function, nml station & gait, sensation nml, No motor deficits Skin Exam: normal color, warm, dry, No rash Lymphatic Exam: No adenopathy SpO2: 95 - Course Nursing assessment & vital signs reviewed: Yes EKG Interpreted by Me: Other (EKG shows normal sinus rhythm with heart rate of 80. [place] interval 147 ms, QT interval 375 ms. Nothing acute.) - CT Exams Abdomen/Pelvis CT Interpretation: No appendicitis, Other (Nothing acute) Ordered Tests: Active Orders 24 hr Category Date Time Status EKG-ER Only STAT Care 04/18/24 14:57 Active IV Insertion STAT Care 04/18/24 14:57 Active ABDOMEN AND PELVIS W CONTRAST [CT] Stat Exams 04/18/24 15:54 Completed CBC W DIFF Stat Lab 04/18/24 15:20 Completed CMP Stat Lab 04/18/24 15:20 Completed HCG QUALITATIVE, URINE Stat Lab 04/18/24 15:34 Completed LIPASE Stat Lab 04/18/24 15:20 Completed TROPONIN Q4H Lab 04/18/24 15:20 Completed TROPONIN Q4H Lab 04/18/24 19:00 Ordered TROPONIN Q4H Lab 04/18/24 23:00 Ordered UA W/RFX UR CULTURE Stat Lab 04/18/24 15:27 Completed Urine Triage Profile Stat Lab 04/18/24 15:33 Completed Medication Summary Discontinued Medications Generic Name Dose Route Start Last Admin Trade Name Freq PRN Reason Stop Dose Admin Ketorolac Tromethamine 15 mg 04/18/24 17:22 Ketorolac Tromethamine 30 Mg/Ml Inj IV 04/18/24 17:23 STAT ONE Ondansetron HCl 4 mg 04/18/24 14:57 04/18/24 15:12 Ondansetron Hcl 4 Mg/2 Ml Vial IV 04/18/24 14:58 4 mg STAT ONE Administration Ondansetron HCl Confirm 04/18/24 15:10 Ondansetron Hcl 4 Mg/2 Ml Vial Administered 04/18/24 15:11 Dose 4 mg .ROUTE .STK-MED ONE Lab/Rad Data: Laboratory Result Diagrams 04/18/24 15:20 04/18/24 15:20 Laboratory Results 04/18/24 04/18/24 04/18/24 Range/Units 15:34 15:33 15:27 WBC (3.98-10.04) x10^3/uL RBC (3.93-5.22) x10^6/uL Hgb (11.2-15.7) g/dL Hct (34.1-44.9) % MCV (79.4-94.8) fL MCH (25.6-32.2) pg MCHC (32.2-35.5) g/dL RDW (11.7-14.4) % Plt Count (182-369) x10^3/uL MPV (9.4-12.3) fL Gran % (34.0-71.1) % Immature Gran % (Auto) (0.001-0.429) % Nucleat RBC Rel Count (0.00-0.2) % Eos # (Auto) (0.04-0.36) x10^3/uL Immature Gran # (Auto) (0.001-0.031) x10^3u/L Absolute Lymphs (auto) (1.18-3.74) x10^3/uL Absolute Monos (auto) (0.24-0.86) x10^3/uL Absolute Nucleated RBC (0.00-0.012) x10^3u/L Lymphocytes % (19.3-51.7) % Monocytes % (4.7-12.5) % Eosinophils % (0.7-5.8) % Basophils % (0.1-1.2) % Absolute Granulocytes (1.56-6.13) x10^3/uL Basophils # (0.01-0.08) x10^3/uL Sodium (135-145) mmol/L Potassium (3.5-5.1) mmol/L Chloride (98-107) mmol/L Carbon Dioxide (22-30) mmol/L Anion Gap (5-15) MEQ/L BUN (7-17) mg/dL Creatinine (0.52-1.04) mg/dL Estimated GFR ML/MIN Glucose (74-106) mg/dL Calcium (8.4-10.2) mg/dL Total Bilirubin (0.2-1.3) mg/dL AST (14-36) U/L ALT (0-35) U/L Alkaline Phosphatase (38-126) U/L Troponin I (0.000-0.033) ng/mL Serum Total Protein (6.3-8.2) g/dL Albumin (3.5-5.0) g/dL Lipase (23-300) U/L Urine Color Yellow (Yellow) Urine Appearance Clear (Clear) Urine pH 6.5 (4.6-8.0) Ur Specific [place] 1.020 (1.005-1.030) Urine Protein Negative (Negative) Urine Glucose (UA) Negative (Negative) mg/dL Urine Ketones Negative (Negative) Urine Blood Negative (Negative) Urine Nitrite Negative (Negative) Urine Bilirubin Negative (Negative) Urine Urobilinogen 1.0 A (0.2) mg/dL Ur Leukocyte Esterase Negative (Negative) U Hyaline Cast (Auto) NONE SEEN (0-2) /LPF Urine Microscopic RBC 0-2 (0-5) /HPF Urine Microscopic WBC 0-2 (0-5) /HPF Ur Epithelial Cells None Seen (None Seen) /HPF Urine Bacteria None Seen (None Seen) /HPF Urine Culture Reflexed NO (NO) Urine HCG, Qual NEGATIVE (NEGATIVE) Urine Opiates Level NEGATIVE (NEGATIVE) Ur Methadone NEGATIVE (NEGATIVE) Urine Barbiturates NEGATIVE (NEGATIVE) Ur Phencyclidine (PCP) NEGATIVE (NEGATIVE) Urine Amphetamine NEGATIVE (NEGATIVE) U Benzodiazepine Level NEGATIVE (NEGATIVE) Urine Cocaine NEGATIVE (NEGATIVE) Urine Marijuana (THC) NEGATIVE (NEGATIVE) 04/18/24 04/18/24 04/18/24 Range/Units 15:20 15:20 15:20 WBC 6.8 (3.98-10.04) x10^3/uL RBC 4.82 (3.93-5.22) x10^6/uL Hgb 13.8 (11.2-15.7) g/dL Hct 42.4 (34.1-44.9) % MCV 88.0 (79.4-94.8) fL MCH 28.6 (25.6-32.2) pg MCHC 32.5 (32.2-35.5) g/dL RDW 12.8 (11.7-14.4) % Plt Count 210 (182-369) x10^3/uL MPV 9.7 (9.4-12.3) fL Gran % 64.0 (34.0-71.1) % Immature Gran % (Auto) 0.1 (0.001-0.429) % Nucleat RBC Rel Count 0.0 (0.00-0.2) % Eos # (Auto) 0.08 (0.04-0.36) x10^3/uL Immature Gran # (Auto) 0.01 (0.001-0.031) x10^3u/L Absolute Lymphs (auto) 1.82 (1.18-3.74) x10^3/uL Absolute Monos (auto) 0.49 (0.24-0.86) x10^3/uL Absolute Nucleated RBC 0.00 (0.00-0.012) x10^3u/L Lymphocytes % 26.8 (19.3-51.7) % Monocytes % 7.2 (4.7-12.5) % Eosinophils % 1.2 (0.7-5.8) % Basophils % 0.7 (0.1-1.2) % Absolute Granulocytes 4.35 (1.56-6.13) x10^3/uL Basophils # 0.05 (0.01-0.08) x10^3/uL Sodium 140 (135-145) mmol/L Potassium 3.7 (3.5-5.1) mmol/L Chloride 108 H (98-107) mmol/L Carbon Dioxide 20 L (22-30) mmol/L Anion Gap 16.3 H (5-15) MEQ/L BUN 15 (7-17) mg/dL Creatinine 0.64 (0.52-1.04) mg/dL Estimated GFR 129.7 ML/MIN Glucose 94 (74-106) mg/dL Calcium 9.5 (8.4-10.2) mg/dL Total Bilirubin 1.10 (0.2-1.3) mg/dL AST 31 (14-36) U/L ALT 23 (0-35) U/L Alkaline Phosphatase 146 H (38-126) U/L Troponin I < 0.012 (0.000-0.033) ng/mL Serum Total Protein 7.5 (6.3-8.2) g/dL Albumin 4.5 (3.5-5.0) g/dL Lipase 133 (23-300) U/L Urine Color (Yellow) Urine Appearance (Clear) Urine pH (4.6-8.0) Ur Specific [place] (1.005-1.030) Urine Protein (Negative) Urine Glucose (UA) (Negative) mg/dL Urine Ketones (Negative) Urine Blood (Negative) Urine Nitrite (Negative) Urine Bilirubin (Negative) Urine Urobilinogen (0.2) mg/dL Ur Leukocyte Esterase (Negative) U Hyaline Cast (Auto) (0-2) /LPF Urine Microscopic RBC (0-5) /HPF Urine Microscopic WBC (0-5) /HPF Ur Epithelial Cells (None Seen) /HPF Urine Bacteria (None Seen) /HPF Urine Culture Reflexed (NO) Urine HCG, Qual (NEGATIVE) Urine Opiates Level (NEGATIVE) Ur Methadone (NEGATIVE) Urine Barbiturates (NEGATIVE) Ur Phencyclidine (PCP) (NEGATIVE) Urine Amphetamine (NEGATIVE) U Benzodiazepine Level (NEGATIVE) Urine Cocaine (NEGATIVE) Urine Marijuana (THC) (NEGATIVE) - Progress Progress: improved Progress Note: 04/18/24 17:25 Workup shows nothing acute. CT scan does show some constipation. Patient's father present in the room. I discussed the results with them. Patient told me that she has been told multiple times in the past that there is a constipation. I advised patient to take [id number] laxative. I will discharge the patient home now. Medical Desision Making - Risk of complications Minimal Risk: Minimal risk of morbidity - Departure Departure Disposition: Home Clinical Impression: Chest wall pain, Constipation Abdominal pain Qualifiers: Abdominal location: lower abdomen, unspecified Qualified Code(s): R10.30 - Lower abdominal pain, unspecified Condition: Stable Critical Care Time: No Referrals: TORI MACHADO [ACTIVE STAFF] - Follow up/PCP as directed Additional Instructions: See PCP for continued tube care. Return to the ER for any emergency or new symptoms or worsening symptoms. Take [id number] laxatives. Forms: Work/School Release Form
[2024-04-18] MEDS ORDERED: Zofran 4 MG/2 ML VIAL ONE (15:10)
[2024-04-18] MEDS: Zofran 4 MG/2 ML VIAL IV ONE (15:12)
[2024-04-18 15:23] LABS: Absolute Neutrophil Ct (ANC) 4.35 x10^3/uL (1.56-6.13); BASOPHIL % 0.7 % (0.1-1.2); Basophil (Absolute #) 0.05 x10^3/uL (0.01-0.08); Eosinophil % 1.2 % (0.7-5.8); Eosinophil (Absolute #) 0.08 x10^3/uL (0.04-0.36); Hematocrit 42.4 % (34.1-44.9); Hemoglobin 13.8 g/dL (11.2-15.7); IMMATURE GRAN # 0.01 x10^3u/L (0.001-0.031); IMMATURE GRAN % 0.1 % (0.001-0.429); Lymphocyte (Absolute #) 1.82 x10^3/uL (1.18-3.74); Lymphocytes % 26.8 % (19.3-51.7); Mean Corpuscular Hemoglobin 28.6 pg (25.6-32.2); Mean Corpuscular Hgb Concent. 32.5 g/dL (32.2-35.5); Mean Platelet Volume 9.7 fL (9.4-12.3); Monocyte (Absolute #) 0.49 x10^3/uL (0.24-0.86); Monocytes % 7.2 % (4.7-12.5); Platelet Count 210 x10^3/uL (182-369); Red Blood Count 4.82 x10^6/uL (3.93-5.22); Red Cell Distribution Width 12.8 % (11.7-14.4); White Blood Count 6.8 x10^3/uL (3.98-10.04)
[2024-04-18 15:38] LABS: HCG URINE TEST NEGATIVE (NEGATIVE)
[2024-04-18 15:43] LABS: Appearance Clear (Clear); Bacteria None Seen /HPF (None Seen); Bilirubin Negative (Negative); Blood Negative (Negative); Epithelial Cells None Seen /HPF (None Seen); Glucose, Urine Negative (Negative); Hyaline Casts NONE SEEN /LPF (0-2); Ketones Negative (Negative); Leukocyte Esterase Negative (Negative); Nitrite Negative (Negative); Ph 6.5 (4.6-8.0); Protein,Urine Dip Negative (Negative); RBC 0-2 /HPF (0-5); WBC 0-2 /HPF (0-5)
[2024-04-18 15:50] LABS: ALBUMIN 4.5 g/dL (3.5-5.0); ANION GAP 16.3 MEQ/L (5-15); BILIRUBIN,TOTAL 1.1 mg/dL (0.2-1.3); Calcium 9.5 mg/dL (8.4-10.2); Creatinine 1 0.64 mg/dL (0.52-1.04); EST GLOMERULAR FILTRATION RATE 129.7 ML/MIN; Potassium 3.7 mmol/L (3.5-5.1); Total Protein 7.5 g/dL (6.3-8.2)
[2024-04-18 16:11] LABS: Amphetamine,Urine NEGATIVE (NEGATIVE); Barbiturate,Urine NEGATIVE (NEGATIVE); Benzodiazepine,Urine NEGATIVE (NEGATIVE); Cocaine,Urine NEGATIVE (NEGATIVE); Methadone,Urine NEGATIVE (NEGATIVE); Opiate,Urine NEGATIVE (NEGATIVE); PCP,Urine NEGATIVE (NEGATIVE); THC,Urine NEGATIVE (NEGATIVE)
--- NOTE | 2024-04-18 16:39 | XRAY ---
Indication: Abdomen pain. Multiple contiguous axial images obtained through the abdomen and pelvis using 80 cc Isovue 370 contrast. Comparison: February 23, 2024 Lung bases remain clear. Heart not enlarged. Noncontrasted stomach and bowel loops appear nonobstructed with normal appendix. Again mild diffuse scatter colonic fecal debris. No free fluid/air. Remaining liver, gallbladder, pancreas, spleen, adrenal glands, kidneys, ureters, bladder, uterus, and aorta are normal in CT appearance and attenuation. No pathologic retroperitoneal lymphadenopathy. Osseous structures intact again with L1-L3 broad-based disc osteophyte complex. Impression: Again mild diffuse fecal stasis and L1-L3 degenerative disc disease. Remaining CT abdomen/pelvis with contrast exam continues to be normal.
[2024-04-18 17:06] VITALS: BP 120/82; PULSE 80; RESP 14
[2024-04-18] MEDS ORDERED: TORAdol 30 mg Injection IV ONE (17:22)
[2024-04-18 17:28] VITALS: O2SAT 95
== END 2024-04-18 17:35 | disposition home or self-care (01) ==
LOC: ED 14:22
DX: R07.89 Other chest pain (principal); K59.00 Constipation, unspecified; R10.30 Lower abdominal pain, unspecified; R00.0 Tachycardia, unspecified; R03.0 Elevated blood-pressure reading, without diagnosis of hypertension; Z79.899 Other long term (current) drug therapy; Z72.0 Tobacco use
CPT/HCPCS: 36000; 36415; 74177; 80053; 80307; 81001; 81025; 83690; 84484; 85025; 93005; 96374; 99284; J2405

== ENCOUNTER 2024-05-24 14:01 | Emergency (ER) | payer BC ==
[2024-05-24 14:15] VITALS: PULSE 99; TEMP 97.7; O2SAT 96
--- NOTE | 2024-05-24 14:20 | ERPHSYRPT ---
- History of Present Illness Time Seen by Provider: 05/24/24 14:18 Source: patient Exam Limitations: no limitations Patient Subjective Stated Complaint: Pt c/o of low left back pain that began this morning and states that she can't lift her child but she just lifted her on to the bed with her Triage Nursing Assessment: Pt was brought to the ER by her father, vitals wnl, rates pain as 8/10, pulses normal, skin n/w/d, denies injury, no difficulty breathing, doesn't appear to be in any distress Physician History: 18-year-old female presents to emergency department for evaluation of left lower lumbar pain. Patient states she awoke with the pain. Pain described as an ache that is localized no radiation. Pain reproduced with movement and palpation. Pain improved with rest. Patient states she has difficulty lifting her child up due to pain. No trauma no fever no recent back procedure no saddle anesthesia no lower extremity weakness. Patient is ambulatory with a normal gait pattern. No systemic manifestations/symptomology. Patient otherwise feels well. She voices no other complaints or concerns at this time. Portions of this note were created with voice recognition technology. There may be grammatical, spelling, punctuation or sound alike errors Timing/Duration: today Method of Injury: unknown Quality: aching Back Pain Location: lumbar spine Severity of Pain-Max: moderate Severity of Pain-Current: mild Modifying Factors: Improves With: movement, other (Palpation reproduces pain as well) Associated Symptoms: denies symptoms Previous symptoms: no prior history Allergies/Adverse Reactions: amoxicillin Allergy (Intermediate, Verified 05/24/24 14:15) Difficulty Breathing cephalexin [From Keflex] Allergy (Intermediate, Verified 05/24/24 14:15) Rash cetirizine [From Zyrtec] Allergy (Intermediate, Verified 05/24/24 14:15) Hives metronidazole Allergy (Intermediate, Verified 05/24/24 14:15) Difficulty Breathing AND RASH trazodone Allergy (Intermediate, Verified 05/24/24 14:15) Hives ketorolac [From Toradol] Allergy (Mild, Verified 05/24/24 14:15) Muscle Aches guaifenesin [From Mucinex] Allergy (Verified 05/24/24 14:15) Rash RASH Home Medications: Paroxetine HCl 20 mg [Paxil 20 MG] 40 mg PO HS MDD 1 tab hs 09/23/17 [History] clonazePAM [Clonazepam] 0.5 mg PO HS 04/01/23 [History] l-Norgest/E.estradiol-E.estrad [Ashlyna 0.15-0.03-0.01 mg Tab] 1 each PO DAILY 05/24/24 [History] Hx Tetanus, Diphtheria Vaccination/Date Given: Yes Hx Influenza Vaccination/Date Given: No Hx Pneumococcal Vaccination/Date Given: No Travel Risk - International Travel Have you traveled outside of the country in past 3 weeks: No - Emerging Infectious Disease Are you exhibiting symptoms associated with any current EIDs: No Symptoms: Abdominal Pain - Review of Systems Constitutional: No Symptoms, No Fever, No Chills Eyes: No Symptoms Ears, Nose, & Throat: No Symptoms Respiratory: No Symptoms, No Cough, No Dyspnea Cardiac: No Symptoms, No Chest Pain, No Edema, No Syncope Abdominal/Gastrointestinal: No Symptoms, No Abdominal Pain, No Nausea, No Vomiting, No Diarrhea Genitourinary Symptoms: No Symptoms, No Dysuria Musculoskeletal: No Symptoms, No Back Pain, No Neck Pain Skin: No Symptoms, No Rash Neurological: No Symptoms, No Dizziness, No Focal Weakness, No Sensory Changes Psychological: No Symptoms Endocrine: No Symptoms Hematologic/Lymphatic: No Symptoms Immunological/Allergic: No Symptoms All Other Systems: Reviewed and Negative - Past Medical History Pertinent Past Medical History: Yes Neurological History: No Pertinent History ENT History: No Pertinent History Cardiac History: No Pertinent History Respiratory History: No Pertinent History Endocrine Medical History: No Pertinent History Musculoskeletal History: No Pertinent History GI Medical History: No Pertinent History History: No Pertinent History Psycho-Social History: Anxiety, Other Female Reproductive Disorders: No Pertinent History Other Medical History: insomnia - Past Surgical History Past Surgical History: Yes Neuro Surgical History: No Pertinent History Cardiac: No Pertinent History Respiratory: No Pertinent History Gastrointestinal: No Pertinent History Genitourinary: No Pertinent History Musculoskeletal: No Pertinent History Female Surgical History: No Pertinent History Other Surgical History: cyst removed from sinus Significant Family History: other (father had afib at age 19) - Female History Hx Last Menstrual Period: unknown Hx Now: No (unknown) - Social History Smoking Status: Current every day smoker How long have you smoked: vapes Exposure to second hand smoke: Yes Alcohol Use: None Drug Use: none Patient Lives Alone: No - Social Determinants of Health Will the patient participate in the screening: Declined to provide - Nursing Vital Signs Nursing Vital Signs: Initial Vital Signs Temperature 97.7 F 05/24/24 14:08 Pulse Rate 99 H 05/24/24 14:08 Blood Pressure 107/81 05/24/24 14:08 O2 Sat by Pulse Oximetry 96 05/24/24 14:08 Pain Scale Pain Intensity [Left Lower 8 Back] Pain Intensity 8 - Physical Exam General Appearance: no apparent distress, alert Eye Exam: PERRL/EOMI, eyes nml inspection Ears, Nose, Throat Exam: pharynx normal Neck Exam: normal inspection, non-tender, supple, full range of motion, No meningismus, No midline tenderness Respiratory Exam: normal breath sounds, lungs clear, airway intact, No respiratory distress Cardiovascular Exam: regular rate/rhythm, normal heart sounds, normal peripheral pulses Gastrointestinal Exam: soft, No tenderness, No mass Back Exam: other (Tenderness palpation to the left lower lumbar paraspinal muscle. Overlying soft tissue intact. Palpation reproduces pain.) Extremity Exam: normal inspection, normal range of motion, No calf tenderness, No pedal edema Neurologic Exam: alert, oriented x 3, cooperative, client reporting associate II-XII nml as tested, normal mood/affect, nml station & gait, sensation nml, No motor deficits Skin Exam: normal color, warm, dry, No rash Lymphatic Exam: No adenopathy SpO2 Interpretation: normal SpO2: 96 O2 Delivery: Room Air - Course Nursing assessment & vital signs reviewed: Yes Ordered Tests: Active Orders 24 hr Category Date Time Status CULTURE,URINE Stat Lab 05/24/24 13:50 Received HCG QUALITATIVE, URINE Stat Lab 05/24/24 13:50 Completed UA W/RFX UR CULTURE Stat Lab 05/24/24 13:50 Completed Medication Summary Discontinued Medications Generic Name Dose Route Start Last Admin Trade Name Freq PRN Reason Stop Dose Admin Dexamethasone Sodium Phosphate 8 mg 05/24/24 14:16 Dexamethasone Sod Phosphate 10 Mg/Ml IM 05/24/24 14:17 STAT ONE Dexamethasone Sodium Phosphate Confirm 05/24/24 15:12 Dexamethasone Sod Phosphate 10 Mg/Ml Administered 05/24/24 15:13 Dose 10 mg .ROUTE .STK-MED ONE Ketorolac Tromethamine 60 mg 05/24/24 14:16 Ketorolac Tromethamine 30 Mg/Ml Inj IM 05/24/24 14:17 STAT ONE Ketorolac Tromethamine Confirm 05/24/24 15:12 Ketorolac Tromethamine 30 Mg/Ml Inj Administered 05/24/24 15:13 Dose 60 mg .ROUTE .STK-MED ONE Nitrofurantoin Macrocrystals 100 mg 05/24/24 15:10 Nitrofurantoin Macro 100 Mg Capsule PO 05/24/24 15:11 STAT ONE Nitrofurantoin Macrocrystals Confirm 05/24/24 15:12 Nitrofurantoin Macro 100 Mg Capsule Administered 05/24/24 15:13 Dose 100 mg .ROUTE .STK-MED ONE Lab/Rad Data: Laboratory Results 05/24/24 05/24/24 Range/Units 13:50 13:50 Urine Color Yellow (Yellow) Urine Appearance Cloudy A (Clear) Urine pH 6.5 (4.6-8.0) Ur Specific [place] 1.025 (1.005-1.030) Urine Protein Trace A (Negative) Urine Glucose (UA) Negative (Negative) mg/dL Urine Ketones Trace A (Negative) Urine Blood Negative (Negative) Urine Nitrite Negative (Negative) Urine Bilirubin Negative (Negative) Urine Urobilinogen 1.0 A (0.2) mg/dL Ur Leukocyte Esterase Moderate A (Negative) U Hyaline Cast (Auto) NONE SEEN (0-2) /LPF Urine Microscopic RBC 0-2 (0-5) /HPF Urine Microscopic WBC 6-10 A (0-5) /HPF Ur Epithelial Cells Few (None Seen) /HPF Urine Bacteria Moderate A (None Seen) /HPF Urine Culture Reflexed YES (NO) Urine HCG, Qual NEGATIVE (NEGATIVE) - Progress Progress: improved Progress Note: 18-year-old female presents to our ED for evaluation of low back pain. Pain is at the lower left lumbar paraspinal overlying soft tissue intact. UA reveals urinary tract infection. Patient received Macrobid for UTI. A prescription for the same forwarded to patient's pharmacy. Patient received Decadron and Toradol for the back pain. A prescription for Toradol forwarded patient's pharmacy. Patient reassessed. Patient appears comfortable no active pain at this time at rest. Will discharge home. She agrees to follow-up with her primary care doctor within 48 hours for reevaluation. Portions of this note were created with voice recognition technology. There may be grammatical, spelling, punctuation or sound alike errors Complexity of problem addressed is moderate acute complicated no critical care time. Complex of data reviewed and analyzed is moderate. Test ordered chest reviewed results analyzed and correlated clinically with history and physical exam. Risk of complication and or risk of morbidity/mortality patient management is moderate. A prescription for Macrobid and Toradol forwarded to patient's pharmacy. Vital stable. Time spent to discharge patient is approximately 15 minutes. Plan of care established for shared decision making. No social determinants of health present to impede follow-up. Portions of this note were created with voice recognition technology. There may be grammatical, spelling, punctuation or sound alike errors 05/24/24 15:15 Counseled pt/family regarding: lab results, diagnosis, need for follow-up - Departure Departure Disposition: Home Clinical Impression: Lumbosacral strain, UTI (urinary tract infection) Condition: Stable Critical Care Time: No Referrals: SAY GERARD ANNUAL CAMPAIGN MANAGER [Primary Care Provider] - Follow up/PCP as directed Additional Instructions: Discharge/Care Plan KARIS LEVY was seen on 05/24/24 in the Emergency Room. The patient was counseled regarding Diagnosis,Lab results, Imaging studies, need for follow up and when to return to the Emergency Room. Prescriptions given: Discharge Note I have spoken with the patient and/or caregivers. I have explained the patient's condition, diagnosis and treatment plan based on the information available to me at this time. I have answered the patient's and/or caregiver's questions and addressed any concerns. The patient and/or caregivers have as good understanding of the patient's diagnosis, condition and treatment plan as can be expected at this point. The vital signs have been stable. The patient's condition is stable and appropriate for discharge from the emergency department. The patient will pursue further outpatient evaluation with the primary care physician or other designated or consulting physician as outlined in the discharge instructions. The patient and/or caregivers are agreeable to this plan of care and follow-up instructions have been explained in detail. The patient and/or caregivers have received these instruction. The patient/and or caregivers are aware that any significant change in condition or worsening of symptoms should prompt an immediate return to this or the closest emergency department or call 911. Prescriptions: Nitrofurantoin Macro 100 mg [Macrobid 100MG Capsule] 100 mg PO BID 7 Days #14 cap Ketorolac Trometh 10 mg Tab [TORAdol 10 MG TABLET] 10 mg PO TID 5 Days #15 tablet
[2024-05-24 14:25] LABS: HCG URINE TEST NEGATIVE (NEGATIVE)
[2024-05-24 14:44] LABS: Appearance Cloudy (Clear); Bacteria Moderate /HPF (None Seen); Bilirubin Negative (Negative); Blood Negative (Negative); Epithelial Cells Few /HPF (None Seen); Glucose, Urine Negative (Negative); Hyaline Casts NONE SEEN /LPF (0-2); Ketones Trace (Negative); Leukocyte Esterase Moderate (Negative); Nitrite Negative (Negative); Ph 6.5 (4.6-8.0); Protein,Urine Dip Trace (Negative); RBC 0-2 /HPF (0-5); Specific Gravity 1.025 (1.005-1.030)
[2024-05-24 15:07] VITALS: BP 104/67
[2024-05-24] MEDS ORDERED: Macrobid 100MG Capsule ONE (15:12)
[2024-05-24] MEDS ORDERED: TORAdol 30 mg Injection ONE (15:12)
[2024-05-24] MEDS ORDERED: DECADRON 10MG INJ. ONE (15:12)
[2024-05-24] MEDS: Macrobid 100MG Capsule PO ONE (15:16)
[2024-05-24] MEDS: TORAdol 30 mg Injection IM ONE (15:21)
[2024-05-24] MEDS: DECADRON 10MG INJ. IM ONE (15:23)
== END 2024-05-24 16:10 | disposition home or self-care (01) ==
LOC: ED 14:01
DX: S39.012A Strain of muscle, fascia and tendon of lower back, initial encounter (principal); N39.0 Urinary tract infection, site not specified; Z79.899 Other long term (current) drug therapy; Z72.0 Tobacco use
CPT/HCPCS: 81001; 81025; 87086; 96372; 99283; 99284; J1100; J1885; A9270-GY

== ENCOUNTER 2024-08-10 11:04 | Emergency (ER) | payer BC ==
[2024-08-10 11:33] VITALS: TEMP 98
[2024-08-10 12:02] LABS: Absolute Neutrophil Ct (ANC) 2.43 x10^3/uL (1.56-6.13); BASOPHIL % 0.7 % (0.1-1.2); Basophil (Absolute #) 0.03 x10^3/uL (0.01-0.08); Eosinophil % 0.9 % (0.7-5.8); Eosinophil (Absolute #) 0.04 x10^3/uL (0.04-0.36); Hematocrit 41.3 % (34.1-44.9); Hemoglobin 13.2 g/dL (11.2-15.7); IMMATURE GRAN # 0.01 x10^3u/L (0.001-0.031); IMMATURE GRAN % 0.2 % (0.001-0.429); Lymphocyte (Absolute #) 1.52 x10^3/uL (1.18-3.74); Lymphocytes % 34.2 % (19.3-51.7); Mean Corpuscular Hemoglobin 27.5 pg (25.6-32.2); Mean Platelet Volume 10.6 fL (9.4-12.3); Monocyte (Absolute #) 0.41 x10^3/uL (0.24-0.86); Monocytes % 9.2 % (4.7-12.5); Neutrophil % 54.8 % (34.0-71.1); Platelet Count 189 x10^3/uL (182-369); Red Cell Distribution Width 13.1 % (11.7-14.4); White Blood Count 4.4 x10^3/uL (3.98-10.04)
[2024-08-10 12:11] LABS: Appearance Clear (Clear); Bacteria Rare /HPF (None Seen); Bilirubin Negative (Negative); Blood Negative (Negative); Epithelial Cells Rare /HPF (None Seen); Glucose, Urine Negative (Negative); HCG URINE TEST NEGATIVE (NEGATIVE); Hyaline Casts NONE SEEN /LPF (0-2); Ketones Negative (Negative); Leukocyte Esterase Negative (Negative); Nitrite Negative (Negative); Protein,Urine Dip Negative (Negative); Specific Gravity 1.025 (1.005-1.030); Urobilinogen 0.2 mg/dL (0.2); WBC 0-2 /HPF (0-5)
[2024-08-10 12:19] LABS: ALBUMIN 4.7 g/dL (3.5-5.0); ANION GAP 14.2 MEQ/L (5-15); BILIRUBIN,TOTAL 0.7 mg/dL (0.2-1.3); Calcium 9.3 mg/dL (8.4-10.2); Creatinine 1 0.72 mg/dL (0.52-1.04); EST GLOMERULAR FILTRATION RATE 122.7 ML/MIN; Potassium 3.4 mmol/L (3.5-5.1); Total Protein 7.7 g/dL (6.3-8.2)
[2024-08-10 12:23] LABS: Amphetamine,Urine NEGATIVE (NEGATIVE); Barbiturate,Urine NEGATIVE (NEGATIVE); Benzodiazepine,Urine NEGATIVE (NEGATIVE); Cocaine,Urine NEGATIVE (NEGATIVE); Methadone,Urine NEGATIVE (NEGATIVE); Opiate,Urine NEGATIVE (NEGATIVE); PCP,Urine NEGATIVE (NEGATIVE); THC,Urine NEGATIVE (NEGATIVE)
[2024-08-10] MEDS ORDERED: Sodium Chloride 0.9% 1000 ML 1,000 ML ONE (13:00)
[2024-08-10] MEDS: Sodium Chloride 0.9% 1000 ML 1,000 ML IV SCH (13:02)
--- NOTE | 2024-08-10 13:41 | ERPHSYRPT ---
- History of Present Illness Time Seen by Provider: 08/10/24 11:21 Source: patient Exam Limitations: no limitations ( b) Patient Subjective Stated Complaint: C/O swelling to BLE that she noticed last night Triage Nursing Assessment: Patient ambulated back to ER without difficulties. She is alert and oriented; anxious. NO SOB. SKin tone normal. GONZALEZ WNL. Trace edema to feet/ankles. Physician History: 18 years old with history of anxiety/depression presented in the ER with complains of multiple nonspecific complaints. Patient reports she had some bilateral ankle swelling last night which is improved now, having off and on headaches and back pain for quite some time. Also report feeling weak fatigued and tired. Reports some urinary symptoms of increased frequency but no dysuria or hematuria. Denies any vaginal bleeding or discharge. No fever or chills reported. Allergies/Adverse Reactions: amoxicillin Allergy (Intermediate, Verified 08/10/24 11:22) Difficulty Breathing cephalexin [From Keflex] Allergy (Intermediate, Verified 08/10/24 11:22) Rash cetirizine [From Zyrtec] Allergy (Intermediate, Verified 08/10/24 11:22) Hives metronidazole Allergy (Intermediate, Verified 08/10/24 11:22) Difficulty Breathing AND RASH trazodone Allergy (Intermediate, Verified 08/10/24 11:22) Hives ketorolac [From Toradol] Allergy (Mild, Verified 08/10/24 11:22) Muscle Aches guaifenesin [From Mucinex] Allergy (Verified 08/10/24 11:22) Rash RASH Home Medications: Paroxetine HCl 20 mg [Paxil 20 MG] 40 mg PO HS MDD 1 tab hs 09/23/17 [History] l-Norgest/E.estradiol-E.estrad [Ashlyna 0.15-0.03-0.01 mg Tab] 1 each PO DAILY 05/24/24 [History] Hx Tetanus, Diphtheria Vaccination/Date Given: Yes Hx Influenza Vaccination/Date Given: No Hx Pneumococcal Vaccination/Date Given: No Immunizations Up to Date: Yes Travel Risk - International Travel Have you traveled outside of the country in past 3 weeks: No - Emerging Infectious Disease Are you exhibiting symptoms associated with any current EIDs: Yes Symptoms: Abdominal Pain, Headaches/Body Aches/ - Review of Systems Constitutional: Fatigue, Weakness Eyes: No Symptoms Ears, Nose, & Throat: No Symptoms Respiratory: No Symptoms Cardiac: No Symptoms Abdominal/Gastrointestinal: No Symptoms Genitourinary Symptoms: Frequency Musculoskeletal: Back Pain Skin: No Symptoms Neurological: Headache Psychological: Anxiety, Depression Endocrine: No Symptoms Hematologic/Lymphatic: No Symptoms - Past Medical History Pertinent Past Medical History: Yes Neurological History: No Pertinent History ENT History: No Pertinent History Cardiac History: No Pertinent History Respiratory History: No Pertinent History Endocrine Medical History: No Pertinent History Musculoskeletal History: No Pertinent History GI Medical History: No Pertinent History History: No Pertinent History Psycho-Social History: Anxiety, Other Female Reproductive Disorders: No Pertinent History Other Medical History: insomnia - Past Surgical History Past Surgical History: Yes Neuro Surgical History: No Pertinent History Cardiac: No Pertinent History Respiratory: No Pertinent History Gastrointestinal: No Pertinent History Genitourinary: No Pertinent History Musculoskeletal: No Pertinent History Female Surgical History: No Pertinent History Other Surgical History: cyst removed from sinus Significant Family History: other (father had afib at age 19) - Female History Hx Last Menstrual Period: 3 weeks ago Hx Now: No (birthcontrol) - Social History Smoking Status: Never smoker How long have you smoked: vapes Exposure to second hand smoke: No Alcohol Use: None Drug Use: none Patient Lives Alone: No - Social Determinants of Health Will the patient participate in the screening: Declined to provide - Nursing Vital Signs Nursing Vital Signs: Initial Vital Signs Temperature 98 F 08/10/24 11:23 Pulse Rate 94 H 08/10/24 11:23 Respiratory Rate 18 08/10/24 11:23 Blood Pressure 130/78 08/10/24 11:23 O2 Sat by Pulse Oximetry 98 08/10/24 11:23 Pain Scale Pain Intensity 0 - Physical Exam General Appearance: no apparent distress, alert Eye Exam: PERRL/EOMI Ears, Nose, Throat Exam: normal ENT inspection Neck Exam: normal inspection, non-tender, supple, full range of motion Respiratory Exam: normal breath sounds, lungs clear Cardiovascular Exam: regular rate/rhythm, normal heart sounds Gastrointestinal/Abdomen Exam: soft, normal bowel sounds, No tenderness Back Exam: normal inspection, normal range of motion Extremity Exam: normal inspection, normal range of motion Neurologic Exam: alert, oriented x 3, cooperative Skin Exam: normal color SpO2 Interpretation: normal SpO2: 96 O2 Delivery: Room Air Ordered Tests: Active Orders 24 hr Category Date Time Status Clean Catch Urine Specimen STAT Care 08/10/24 11:39 Active CBC W DIFF Stat Lab 08/10/24 11:55 Completed CMP Stat Lab 08/10/24 11:55 Completed HCG QUALITATIVE, URINE Stat Lab 08/10/24 11:36 Completed UA W/RFX UR CULTURE Stat Lab 08/10/24 11:36 Completed Urine Triage Profile Stat Lab 08/10/24 11:41 Completed Medication Summary Generic Name Dose Route Start Last Admin Trade Name Izabel PRN Reason Stop Dose Admin Sodium Chloride 1,000 mls @ 999 mls/hr 08/10/24 13:00 08/10/24 14:04 Sodium Chloride 0.9% 1000 Ml IV 08/10/24 14:00 Infused .Q1H1M KYLE Infusion Lab/Rad Data: Laboratory Result Diagrams 08/10/24 11:55 08/10/24 11:55 Laboratory Results 08/10/24 08/10/24 08/10/24 Range/Units 11:55 11:55 11:41 WBC 4.4 (3.98-10.04) x10^3/uL RBC 4.80 (3.93-5.22) x10^6/uL Hgb 13.2 (11.2-15.7) g/dL Hct 41.3 (34.1-44.9) % MCV 86.0 (79.4-94.8) fL MCH 27.5 (25.6-32.2) pg MCHC 32.0 L (32.2-35.5) g/dL RDW 13.1 (11.7-14.4) % Plt Count 189 (182-369) x10^3/uL MPV 10.6 (9.4-12.3) fL Gran % 54.8 (34.0-71.1) % Immature Gran % (Auto) 0.2 (0.001-0.429) % Nucleat RBC Rel Count 0.0 (0.00-0.2) % Eos # (Auto) 0.04 (0.04-0.36) x10^3/uL Immature Gran # (Auto) 0.01 (0.001-0.031) x10^3u/L Absolute Lymphs (auto) 1.52 (1.18-3.74) x10^3/uL Absolute Monos (auto) 0.41 (0.24-0.86) x10^3/uL Absolute Nucleated RBC 0.00 (0.00-0.012) x10^3u/L Lymphocytes % 34.2 (19.3-51.7) % Monocytes % 9.2 (4.7-12.5) % Eosinophils % 0.9 (0.7-5.8) % Basophils % 0.7 (0.1-1.2) % Absolute Granulocytes 2.43 (1.56-6.13) x10^3/uL Basophils # 0.03 (0.01-0.08) x10^3/uL Sodium 137 (135-145) mmol/L Potassium 3.4 L (3.5-5.1) mmol/L Chloride 107 (98-107) mmol/L Carbon Dioxide 19 L (22-30) mmol/L Anion Gap 14.2 (5-15) MEQ/L BUN 8 (7-17) mg/dL Creatinine 0.72 (0.52-1.04) mg/dL Estimated GFR 122.7 ML/MIN Glucose 99 (74-106) mg/dL Calcium 9.3 (8.4-10.2) mg/dL Total Bilirubin 0.70 (0.2-1.3) mg/dL AST 35 (14-36) U/L ALT 32 (0-35) U/L Alkaline Phosphatase 130 H (38-126) U/L Serum Total Protein 7.7 (6.3-8.2) g/dL Albumin 4.7 (3.5-5.0) g/dL Urine Color (Yellow) Urine Appearance (Clear) Urine pH (4.6-8.0) Ur Specific [place] (1.005-1.030) Urine Protein (Negative) Urine Glucose (UA) (Negative) mg/dL Urine Ketones (Negative) Urine Blood (Negative) Urine Nitrite (Negative) Urine Bilirubin (Negative) Urine Urobilinogen (0.2) mg/dL Ur Leukocyte Esterase (Negative) U Hyaline Cast (Auto) (0-2) /LPF Urine Microscopic RBC (0-5) /HPF Urine Microscopic WBC (0-5) /HPF Ur Epithelial Cells (None Seen) /HPF Urine Bacteria (None Seen) /HPF Urine Culture Reflexed (NO) Urine HCG, Qual (NEGATIVE) Urine Opiates Level NEGATIVE (NEGATIVE) Ur Methadone NEGATIVE (NEGATIVE) Urine Barbiturates NEGATIVE (NEGATIVE) Ur Phencyclidine (PCP) NEGATIVE (NEGATIVE) Urine Amphetamine NEGATIVE (NEGATIVE) U Benzodiazepine Level NEGATIVE (NEGATIVE) Urine Cocaine NEGATIVE (NEGATIVE) Urine Marijuana (THC) NEGATIVE (NEGATIVE) 08/10/24 08/10/24 Range/Units 11:36 11:36 WBC (3.98-10.04) x10^3/uL RBC (3.93-5.22) x10^6/uL Hgb (11.2-15.7) g/dL Hct (34.1-44.9) % MCV (79.4-94.8) fL MCH (25.6-32.2) pg MCHC (32.2-35.5) g/dL RDW (11.7-14.4) % Plt Count (182-369) x10^3/uL MPV (9.4-12.3) fL Gran % (34.0-71.1) % Immature Gran % (Auto) (0.001-0.429) % Nucleat RBC Rel Count (0.00-0.2) % Eos # (Auto) (0.04-0.36) x10^3/uL Immature Gran # (Auto) (0.001-0.031) x10^3u/L Absolute Lymphs (auto) (1.18-3.74) x10^3/uL Absolute Monos (auto) (0.24-0.86) x10^3/uL Absolute Nucleated RBC (0.00-0.012) x10^3u/L Lymphocytes % (19.3-51.7) % Monocytes % (4.7-12.5) % Eosinophils % (0.7-5.8) % Basophils % (0.1-1.2) % Absolute Granulocytes (1.56-6.13) x10^3/uL Basophils # (0.01-0.08) x10^3/uL Sodium (135-145) mmol/L Potassium (3.5-5.1) mmol/L Chloride (98-107) mmol/L Carbon Dioxide (22-30) mmol/L Anion Gap (5-15) MEQ/L BUN (7-17) mg/dL Creatinine (0.52-1.04) mg/dL Estimated GFR ML/MIN Glucose (74-106) mg/dL Calcium (8.4-10.2) mg/dL Total Bilirubin (0.2-1.3) mg/dL AST (14-36) U/L ALT (0-35) U/L Alkaline Phosphatase (38-126) U/L Serum Total Protein (6.3-8.2) g/dL Albumin (3.5-5.0) g/dL Urine Color Yellow (Yellow) Urine Appearance Clear (Clear) Urine pH 6.0 (4.6-8.0) Ur Specific [place] 1.025 (1.005-1.030) Urine Protein Negative (Negative) Urine Glucose (UA) Negative (Negative) mg/dL Urine Ketones Negative (Negative) Urine Blood Negative (Negative) Urine Nitrite Negative (Negative) Urine Bilirubin Negative (Negative) Urine Urobilinogen 0.2 (0.2) mg/dL Ur Leukocyte Esterase Negative (Negative) U Hyaline Cast (Auto) NONE SEEN (0-2) /LPF Urine Microscopic RBC 3-5 (0-5) /HPF Urine Microscopic WBC 0-2 (0-5) /HPF Ur Epithelial Cells Rare (None Seen) /HPF Urine Bacteria Rare A (None Seen) /HPF Urine Culture Reflexed NO (NO) Urine HCG, Qual NEGATIVE (NEGATIVE) Urine Opiates Level (NEGATIVE) Ur Methadone (NEGATIVE) Urine Barbiturates (NEGATIVE) Ur Phencyclidine (PCP) (NEGATIVE) Urine Amphetamine (NEGATIVE) U Benzodiazepine Level (NEGATIVE) Urine Cocaine (NEGATIVE) Urine Marijuana (THC) (NEGATIVE) - Progress Progress: improved Progress Note: 08/10/24 14:28 18-year-old is evaluated in the ER for multiple nonspecific complaints. Patient is not in any distress. Lungs clear to auscultation. Has normal white count, chemistries are fairly unremarkable except for some element of dehydration and given fluids. No UTI. Offered COVID flu and RSV which patient declined. She is advised to have increased fluid intake. Tylenol as needed and outpatient follow-up. Discussed signs symptoms of worsening needing return to ER which she seems understanding. Stable for discharge. Counseled pt/family regarding: lab results, diagnosis, need for follow-up Medical Desision Making - Diagnostic Testing Diagnostic test were ordered, analyzed, and reviewed by me: Yes - Risk of complications The pt has a mod risk of morbidity or mortality based on: Need for prescription drug management - Departure Departure Disposition: Home Clinical Impression: General weakness, Dehydration Condition: Stable Critical Care Time: No Referrals: DOCTOR,NO FAMILY [Primary Care Provider] - Follow up with PCP 1 day Instructions: Dehydration in adults - ED discharge instructions Additional Instructions: Plenty of fluids. Take Tylenol as needed. Follow-up with primary care for reevaluation. Return to ER for any worsening.
[2024-08-10 14:08] VITALS: BP 112/48; PULSE 88; RESP 15
[2024-08-10 14:29] VITALS: O2SAT 96
== END 2024-08-10 14:42 | disposition home or self-care (01) ==
LOC: ED 11:04
DX: R53.1 Weakness (principal); E86.0 Dehydration; R51.9 Headache, unspecified; M54.9 Dorsalgia, unspecified; R53.83 Other fatigue; Z79.899 Other long term (current) drug therapy
CPT/HCPCS: 36415; 80053; 80307; 81001; 81025; 85025; 96374; 99283; 99284

== ENCOUNTER 2024-08-15 17:06 | Emergency (ER) | payer BC, OTHER | END 2024-08-15 20:00 | disposition left against medical advice (07) | LOC: ED 17:06 | DX: Z53.21 Procedure and treatment not carried out due to patient leaving prior to being seen by health care provider (principal) ==

== ENCOUNTER 2024-08-16 11:10 | Emergency (ER) | payer BC ==
[2024-08-16 11:28] VITALS: PULSE 97; TEMP 97.3; O2SAT 94
--- NOTE | 2024-08-16 11:38 | ERPHSYRPT ---
- History of Present Illness Time Seen by Provider: 08/16/24 11:33 Source: patient Exam Limitations: no limitations Patient Subjective Stated Complaint: pt c/o of right sided back pain that radiates around to her right lower abdomen, pt saw her doctor yesterday and was advised to come to the ER due to concerns of appendicitis or tubal , pt came to ER last night but waited in the waiting room for hours before leaving without being seen Triage Nursing Assessment: Pt brought self to the ER, vitals wnl, rates pain as 8/10, pain for 2 weeks, pulses normal, skin n/w/d, pain to right abdomen with palpatation, last bowel movement yesterday, last intake this morning, doesn't appear to be in any distress Physician History: 18-year-old female presents to our ED as a referral from her primary care doctor for evaluation of right sided abdominal and back pain. Symptoms started approximately 2 weeks ago. Pain has got progressively worse. No trauma no fever. Patient does not believe she is . Patient presented to our ED last night however she was in the waiting room and could not wait longer so she went home. Patient is here today for the same ongoing issue of right sided pain. Patient rates her pain 8 out of 10. No trauma no nausea vomiting diarrhea no rash. Patient states he is otherwise healthy. She voices no other complaints or concerns at this time. Portions of this note were created with voice recognition technology. There may be grammatical, spelling, punctuation or sound alike errors Timing/Duration: week(s) Severity: moderate (2 weeks) Modifying Factors: Improves With: nothing Associated Symptoms: denies symptoms Allergies/Adverse Reactions: amoxicillin Allergy (Intermediate, Verified 08/16/24 11:26) Difficulty Breathing cephalexin [From Keflex] Allergy (Intermediate, Verified 08/16/24 11:26) Rash cetirizine [From Zyrtec] Allergy (Intermediate, Verified 08/16/24 11:26) Hives metronidazole Allergy (Intermediate, Verified 08/16/24 11:26) Difficulty Breathing AND RASH trazodone Allergy (Intermediate, Verified 08/16/24 11:26) Hives ketorolac [From Toradol] Allergy (Mild, Verified 08/16/24 11:26) Muscle Aches guaifenesin [From Mucinex] Allergy (Verified 08/16/24 11:26) Rash RASH Home Medications: Paroxetine HCl 20 mg [Paxil 20 MG] 40 mg PO HS MDD 1 tab hs 09/23/17 [History] l-Norgest/E.estradiol-E.estrad [Ashlyna 0.15-0.03-0.01 mg Tab] 1 each PO DAILY 05/24/24 [History] Hx Tetanus, Diphtheria Vaccination/Date Given: Yes Hx Influenza Vaccination/Date Given: No Hx Pneumococcal Vaccination/Date Given: No Travel Risk - International Travel Have you traveled outside of the country in past 3 weeks: No - Emerging Infectious Disease Are you exhibiting symptoms associated with any current EIDs: No Symptoms: Abdominal Pain, Headaches/Body Aches/ - Review of Systems Constitutional: No Symptoms, No Fever, No Chills Eyes: No Symptoms Ears, Nose, & Throat: No Symptoms Respiratory: No Symptoms, No Cough, No Dyspnea Cardiac: No Symptoms, No Chest Pain, No Edema, No Syncope Abdominal/Gastrointestinal: No Symptoms, No Abdominal Pain, No Nausea, No Vomiting, No Diarrhea Genitourinary Symptoms: No Symptoms, No Dysuria Musculoskeletal: No Symptoms, No Back Pain, No Neck Pain Skin: No Symptoms, No Rash Neurological: No Symptoms, No Dizziness, No Focal Weakness, No Sensory Changes Psychological: No Symptoms Endocrine: No Symptoms Hematologic/Lymphatic: No Symptoms Immunological/Allergic: No Symptoms All Other Systems: Reviewed and Negative - Past Medical History Pertinent Past Medical History: Yes Neurological History: No Pertinent History ENT History: No Pertinent History Cardiac History: No Pertinent History Respiratory History: No Pertinent History Endocrine Medical History: No Pertinent History Musculoskeletal History: No Pertinent History GI Medical History: No Pertinent History History: No Pertinent History Psycho-Social History: Anxiety, Other Female Reproductive Disorders: No Pertinent History Other Medical History: insomnia - Past Surgical History Past Surgical History: Yes Neuro Surgical History: No Pertinent History Cardiac: No Pertinent History Respiratory: No Pertinent History Gastrointestinal: No Pertinent History Genitourinary: No Pertinent History Musculoskeletal: No Pertinent History Female Surgical History: No Pertinent History Other Surgical History: cyst removed from sinus Significant Family History: other (father had afib at age 19) - Female History Hx Last Menstrual Period: 3-4 weeks ago Hx Now: No - Social History Smoking Status: Never smoker How long have you smoked: vapes Exposure to second hand smoke: Yes Alcohol Use: None Drug Use: none Patient Lives Alone: No - Social Determinants of Health Will the patient participate in the screening: Yes Do you worry about a steady place to live?: No Do you have any problems with any of the following?: No known problems In the past 12 months,have you had to go without utilities?: No Transportation Issues: No Has anyone in your support network made you feel unsafe?: No Have you or anyone in your house had to go without enough: No - Nursing Vital Signs Nursing Vital Signs: Initial Vital Signs Temperature 97.3 F 08/16/24 11:16 Pulse Rate 97 H 08/16/24 11:16 Blood Pressure 132/74 08/16/24 11:16 O2 Sat by Pulse Oximetry 94 L 08/16/24 11:16 Pain Scale Pain Intensity [Right Lower 8 Back] Pain Intensity 8 - Physical Exam General Appearance: no apparent distress, alert Eye Exam: PERRL/EOMI, eyes nml inspection Ears, Nose, Throat Exam: normal ENT inspection, TMs normal, pharynx normal, moist mucous membranes Neck Exam: normal inspection, non-tender, supple, full range of motion Respiratory Exam: normal breath sounds, lungs clear, No respiratory distress Cardiovascular Exam: regular rate/rhythm, normal heart sounds, normal peripheral pulses Gastrointestinal/Abdomen Exam: soft, normal bowel sounds, tenderness, other (Tenderness palpation right lower abdomen), No mass Back Exam: normal inspection, normal range of motion, No CVA tenderness, No vertebral tenderness Extremity Exam: normal inspection, normal range of motion, pelvis stable Neurologic Exam: alert, oriented x 3, cooperative, normal mood/affect, sensation nml, No motor deficits Skin Exam: normal color, warm, dry, No rash Lymphatic Exam: No adenopathy SpO2 Interpretation: normal SpO2: 94 O2 Delivery: Room Air - Course Nursing assessment & vital signs reviewed: Yes Ordered Tests: Active Orders 24 hr Category Date Time Status ABDOMEN AND PELVIS W/0 CONTRAS [CT] Stat Exams 08/16/24 11:32 Completed HCG QUALITATIVE, URINE Stat Lab 08/16/24 11:50 Completed UA W/RFX UR CULTURE Stat Lab 08/16/24 11:50 Completed Medication Summary Discontinued Medications Generic Name Dose Route Start Last Admin Trade Name Freq PRN Reason Stop Dose Admin Ketorolac Tromethamine 30 mg 08/16/24 13:23 08/16/24 13:41 Ketorolac Tromethamine 30 Mg/Ml Inj IV 08/16/24 13:24 30 mg STAT ONE Administration Ketorolac Tromethamine Confirm 08/16/24 13:35 Ketorolac Tromethamine 30 Mg/Ml Inj Administered 08/16/24 13:36 Dose 30 mg .ROUTE .STK-MED ONE Lab/Rad Data: Laboratory Results 08/16/24 08/16/24 Range/Units 11:50 11:50 Urine Color Yellow (Yellow) Urine Appearance Clear (Clear) Urine pH 6.5 (4.6-8.0) Ur Specific Horace 1.020 (1.005-1.030) Urine Protein Negative (Negative) Urine Glucose (UA) Negative (Negative) mg/dL Urine Ketones Negative (Negative) Urine Blood Negative (Negative) Urine Nitrite Negative (Negative) Urine Bilirubin Negative (Negative) Urine Urobilinogen 0.2 (0.2) mg/dL Ur Leukocyte Esterase Negative (Negative) U Hyaline Cast (Auto) NONE SEEN (0-2) /LPF Urine Microscopic RBC 3-5 (0-5) /HPF Urine Microscopic WBC 0-2 (0-5) /HPF Ur Epithelial Cells None Seen (None Seen) /HPF Urine Bacteria Rare A (None Seen) /HPF Urine Culture Reflexed NO (NO) Urine HCG, Qual NEGATIVE (NEGATIVE) - Progress Progress: improved Progress Note: 18-year-old female presents to our ED as a referral from her primary care doctor for evaluation of abdominal pain. Patient's pain is right abdominal and right lower quadrant. Patient received IM Toradol for pain control. UA negative for UTI. negative. CT abdomen pelvis significant for fecal stasis. Otherwise nonremarkable. Patient reassessed. She is resting comfortably. No active pain. No nausea no vomiting. Vital stable. No indication for further workup. Patient advised to consider trying [id number] MiraLAX to address the constipation. Patient states she is ready for discharge. Patient voices no other complaints or concerns at this time. Portions of this note were created with voice recognition technology. There may be grammatical, spelling, punctuation or sound alike errors Complexity of problem addressed is moderate acute complicated. No critical care time. Complex of data reviewed and analyzed is moderate. Test ordered chest reviewed results analyzed and correlated clinically with history and physical exam. Risk of complication and or risk of morbidity/mortality of patient management is low. Vital stable. Time spent to discharge patient is approximately 15 minutes. Plan of care established for shared decision making. No social determinants of health present to impede follow-up. Portions of this note were created with voice recognition technology. There may be grammatical, spelling, punctuation or sound alike errors 08/16/24 13:53 Counseled pt/family regarding: diagnosis, need for follow-up, rad results - Departure Departure Disposition: Home Clinical Impression: Abdominal pain Condition: Stable Critical Care Time: No Referrals: BENOIT SCHWARZ FNP [Primary Care Provider] - Follow up/PCP as directed Instructions: Low Back Pain (DC), Abdominal pain Additional Instructions: Discharge/Care Plan KARIS LEVY was seen on 08/16/24 in the Emergency Room. The patient was counseled regarding Diagnosis,Lab results, Imaging studies, need for follow up and when to return to the Emergency Room. Prescriptions given: Discharge Note I have spoken with the patient and/or caregivers. I have explained the patient's condition, diagnosis and treatment plan based on the information available to me at this time. I have answered the patient's and/or caregiver's questions and addressed any concerns. The patient and/or caregivers have as good understanding of the patient's diagnosis, condition and treatment plan as can be expected at this point. The vital signs have been stable. The patient's condition is stable and appropriate for discharge from the emergency department. The patient will pursue further outpatient evaluation with the primary care physician or other designated or consulting physician as outlined in the discharge instructions. The patient and/or caregivers are agreeable to this plan of care and follow-up instructions have been explained in detail. The patient and/or caregivers have received these instruction. The patient/and or caregivers are aware that any significant change in condition or worsening of symptoms should prompt an immediate return to this or the closest emergency department or call 911.
[2024-08-16 12:07] LABS: HCG URINE TEST NEGATIVE (NEGATIVE)
[2024-08-16 12:10] LABS: Appearance Clear (Clear); Bacteria Rare /HPF (None Seen); Bilirubin Negative (Negative); Blood Negative (Negative); Epithelial Cells None Seen /HPF (None Seen); Glucose, Urine Negative (Negative); Hyaline Casts NONE SEEN /LPF (0-2); Ketones Negative (Negative); Leukocyte Esterase Negative (Negative); Nitrite Negative (Negative); Ph 6.5 (4.6-8.0); Protein,Urine Dip Negative (Negative); Urobilinogen 0.2 mg/dL (0.2); WBC 0-2 /HPF (0-5)
--- NOTE | 2024-08-16 13:34 | XRAY ---
Indication: Right abdomen pain. Multiple contiguous axial images obtained through the abdomen and pelvis without contrast using renal stone protocol. Comparison: April 18, 2024 Lung bases remain clear. Heart not enlarged. No renal calculus or evidence for obstructive uropathy in either system. Stomach distended with food/fluid. Noncontrasted stomach and bowel loops nonobstructed again with normal appendix. There remains mild diffuse scattered colonic fecal debris. New tiny cul-de-sac fluid presumed physiologic from rupture/leaking cyst. No free air. Remaining liver, gallbladder, pancreas, spleen, adrenal glands, kidneys, ureters, bladder, uterus, and aorta are unremarkable for noncontrast exam. Osseous structures intact. Impression: 1. Again negative renal calculus or evidence for obstructive uropathy. 2. Incidental mild diffuse fecal stasis and tiny cul-de-sac physiologic fluid. 3. Remaining CT abdomen/pelvis without contrast exam is again negative.
[2024-08-16] MEDS ORDERED: TORAdol 30 mg Injection ONE (13:35)
[2024-08-16] MEDS: TORAdol 30 mg Injection IV ONE (13:41)
[2024-08-16 14:28] VITALS: BP 131/64
== END 2024-08-16 14:30 | disposition home or self-care (01) ==
LOC: ED 11:10
DX: R10.9 Unspecified abdominal pain (principal); M54.50 Low back pain, unspecified; Z79.899 Other long term (current) drug therapy
CPT/HCPCS: 74176; 81001; 81025; 96374; 99284; J1885

== ENCOUNTER 2024-10-13 19:23 | Emergency (ER) | payer BC, OTHER ==
[2024-10-13 19:35] VITALS: TEMP 98.2
[2024-10-13] MEDS ORDERED: Sodium Chloride 0.9% 1000 ML 1,000 ML ONE (19:48)
[2024-10-13] MEDS ORDERED: Zofran 4 MG/2 ML VIAL ONE (19:59)
[2024-10-13] MEDS ORDERED: Hydromorphone 1 mg/ml Injection ONE ×2 (19:59→22:04)
[2024-10-13] MEDS: Hydromorphone 1 mg/ml Injection IV ONE ×2 (20:02→22:07)
[2024-10-13] MEDS: Zofran 4 MG/2 ML VIAL IV ONE (20:02)
[2024-10-13 20:05] LABS: HCG URINE TEST NEGATIVE (NEGATIVE)
[2024-10-13 20:07] LABS: Appearance Clear (Clear); Bacteria None Seen /HPF (None Seen); Bilirubin Negative (Negative); Blood Negative (Negative); Epithelial Cells None Seen /HPF (None Seen); Glucose, Urine Negative (Negative); Hyaline Casts NONE SEEN /LPF (0-2); Ketones Negative (Negative); Leukocyte Esterase Negative (Negative); Nitrite Negative (Negative); Ph 8.5 (4.6-8.0); Protein,Urine Dip Negative (Negative); Specific Gravity 1.015 (1.005-1.030); WBC 0-2 /HPF (0-5)
--- NOTE | 2024-10-13 20:24 | ERPHSYRPT ---
- History of Present Illness Source: patient Exam Limitations: no limitations Patient Subjective Stated Complaint: patient got nauseous then started having sharp pains Triage Nursing Assessment: pt alert and oriented x4, bowel sounds present x4 , tednerness and pain during palpation to pelvic region . patient diaphretic, and apears to be in excruciating pain. pupils perrla 3. patient is oriented to time and place.. Physician History: Patient has extreme pelvic cramps. She is 2 weeks intoNew control pill regimen. She has multiple attempts at oral contraceptives and they failed for various reasons. She has had problems like this before. She was on the Depo shots and stopped those due to some complications. She has not had a period in a while. She did start her new oral contraceptives 2 weeks ago. She has not had any fever chills no dysuria no abdominal pain no nausea vomiting or cramps or diarrhea. All of her cramping is in the pelvic area. She says it feels like labor pains. Allergies/Adverse Reactions: amoxicillin Allergy (Intermediate, Verified 10/13/24 19:46) Difficulty Breathing cephalexin [From Keflex] Allergy (Intermediate, Verified 10/13/24 19:46) Rash cetirizine [From Zyrtec] Allergy (Intermediate, Verified 10/13/24 19:46) Hives metronidazole Allergy (Intermediate, Verified 10/13/24 19:46) Difficulty Breathing AND RASH trazodone Allergy (Intermediate, Verified 10/13/24 19:46) Hives ketorolac [From Toradol] Allergy (Mild, Verified 10/13/24 19:46) Muscle Aches guaifenesin [From Mucinex] Allergy (Verified 10/13/24 19:46) Rash RASH Home Medications: Paroxetine HCl 20 mg [Paxil 20 MG] 40 mg PO HS MDD 1 tab hs 09/23/17 [History] Clonazepam [Klonopin] 2 mg PO DAILY 10/13/24 [History] Hx Tetanus, Diphtheria Vaccination/Date Given: Yes Hx Influenza Vaccination/Date Given: No Hx Pneumococcal Vaccination/Date Given: No Travel Risk - International Travel Have you traveled outside of the country in past 3 weeks: No - Emerging Infectious Disease Are you exhibiting symptoms associated with any current EIDs: No Symptoms: Abdominal Pain, Headaches/Body Aches/ - Review of Systems Constitutional: No Symptoms Eyes: No Symptoms Respiratory: No Symptoms Cardiac: No Symptoms Abdominal/Gastrointestinal: No Symptoms Musculoskeletal: No Symptoms Skin: No Symptoms - Past Medical History Pertinent Past Medical History: Yes Neurological History: No Pertinent History ENT History: No Pertinent History Cardiac History: No Pertinent History Respiratory History: No Pertinent History Endocrine Medical History: No Pertinent History Musculoskeletal History: No Pertinent History GI Medical History: No Pertinent History History: No Pertinent History Psycho-Social History: Anxiety, Other Female Reproductive Disorders: No Pertinent History Other Medical History: insomnia - Past Surgical History Past Surgical History: Yes Neuro Surgical History: No Pertinent History Cardiac: No Pertinent History Respiratory: No Pertinent History Gastrointestinal: No Pertinent History Genitourinary: No Pertinent History Musculoskeletal: No Pertinent History Female Surgical History: No Pertinent History Other Surgical History: cyst removed from sinus Significant Family History: other (father had afib at age 19) - Female History Hx Last Menstrual Period: Now: (unknown) - Social History Smoking Status: Never smoker How long have you smoked: vapes Exposure to second hand smoke: Yes Drug Use: none - Social Determinants of Health Will the patient participate in the screening: Yes Do you worry about a steady place to live?: No Do you have any problems with any of the following?: No known problems In the past 12 months,have you had to go without utilities?: No Transportation Issues: No Has anyone in your support network made you feel unsafe?: No Have you or anyone in your house had to go w/o enough food: No - Nursing Vital Signs Nursing Vital Signs: Initial Vital Signs Temperature 98.2 F 10/13/24 19:24 Pulse Rate 74 10/13/24 19:24 Respiratory Rate 16 10/13/24 19:24 Blood Pressure 95/59 10/13/24 19:24 O2 Sat by Pulse Oximetry 98 10/13/24 19:24 Pain Scale Pain Intensity 6 - Physical Exam General Appearance: no apparent distress Eye Exam: PERRL/EOMI Gastrointestinal/Abdomen Exam: soft, normal bowel sounds, other (Occasional pelvic cramps that are very painful) Pelvic Exam: not done Rectal Exam: deferred SpO2: 98 - Course Nursing assessment & vital signs reviewed: Yes Ordered Tests: Active Orders 24 hr Category Date Time Status ABDOMEN AND PELVIS W CONTRAST [CT] Stat Exams 10/13/24 21:58 Taken HCG QUALITATIVE, URINE Stat Lab 10/13/24 19:50 Completed UA W/RFX UR CULTURE Stat Lab 10/13/24 19:50 Completed Medication Summary Discontinued Medications Generic Name Dose Route Start Last Admin Trade Name Izabel PRN Reason Stop Dose Admin Hydromorphone HCl 1 mg 10/13/24 19:57 10/13/24 20:02 Hydromorphone 1 Mg/1ml Inj IV 10/13/24 19:58 1 mg STAT ONE Administration Hydromorphone HCl Confirm 10/13/24 19:59 Hydromorphone 1 Mg/1ml Inj Administered 10/13/24 20:00 Dose 1 mg .ROUTE .STK-MED ONE Hydromorphone HCl 1 mg 10/13/24 21:47 10/13/24 22:07 Hydromorphone 1 Mg/1ml Inj IV 10/13/24 21:48 1 mg STAT ONE Administration Hydromorphone HCl Confirm 10/13/24 22:04 Hydromorphone 1 Mg/1ml Inj Administered 10/13/24 22:05 Dose 1 mg .ROUTE .STK-MED ONE Sodium Chloride Confirm 10/13/24 19:48 Sodium Chloride 0.9% 1000 Ml Administered 10/13/24 19:49 Dose 1,000 mls @ ud .ROUTE .STK-MED ONE Sodium Chloride 1,000 mls @ 999 mls/hr 10/13/24 21:13 10/13/24 22:15 Sodium Chloride 0.9% 1000 Ml IV 10/13/24 22:13 Infused .Q1H1M STA Infusion Ondansetron HCl 4 mg 10/13/24 19:57 10/13/24 20:02 Ondansetron Hcl 4 Mg/2 Ml Vial IV 10/13/24 19:58 4 mg STAT ONE Administration Ondansetron HCl Confirm 10/13/24 19:59 Ondansetron Hcl 4 Mg/2 Ml Vial Administered 10/13/24 20:00 Dose 4 mg .ROUTE .STK-MED ONE Lab/Rad Data: Laboratory Results 10/13/24 10/13/24 Range/Units 19:50 19:50 Urine Color Yellow (Yellow) Urine Appearance Clear (Clear) Urine pH 8.5 A (4.6-8.0) Ur Specific Griffith 1.015 (1.005-1.030) Urine Protein Negative (Negative) Urine Glucose (UA) Negative (Negative) mg/dL Urine Ketones Negative (Negative) Urine Blood Negative (Negative) Urine Nitrite Negative (Negative) Urine Bilirubin Negative (Negative) Urine Urobilinogen 1.0 A (0.2) mg/dL Ur Leukocyte Esterase Negative (Negative) U Hyaline Cast (Auto) NONE SEEN (0-2) /LPF Urine Microscopic RBC 3-5 (0-5) /HPF Urine Microscopic WBC 0-2 (0-5) /HPF Ur Epithelial Cells None Seen (None Seen) /HPF Urine Bacteria None Seen (None Seen) /HPF Urine Culture Reflexed NO (NO) Urine HCG, Qual NEGATIVE (NEGATIVE) - Progress Progress: improved Air Movement: good Progress Note: On the differential was ovarian cyst, , ectopic , dysmenorrhea,Ruptured ovarian cyst,. Patient was stable throughout stay. I gave her some Dilaudid it helped for a while but she got more after that. She still having some pain when to give her some Toradol before she goes and I will send her home with a couple Struthers to take later. She is to follow-up with her primary doctor whoever has her on her oral contraceptives for further instructions. 10/13/24 22:41 Medical Desision Making - External Record(s) Reviewed Records reviewed as a part of evaluation & management: Inpatient - Risk of complications Minimal Risk: Minimal risk of morbidity - Departure Departure Disposition: Home Clinical Impression: Dysmenorrhea, unspecified Condition: Stable Critical Care Time: No Referrals: BENOIT SCHWARZ FNP [Primary Care Provider] - Follow up/PCP as directed Instructions: Menstrual Cramps
[2024-10-13 21:07] VITALS: RESP 18
[2024-10-13] MEDS: Sodium Chloride 0.9% 1000 ML 1,000 ML IV STA (21:15)
[2024-10-13 22:43] VITALS: O2SAT 98
[2024-10-13 23:43] VITALS: BP 106/51; PULSE 95
--- NOTE | 2024-10-14 08:38 | XRAY ---
Indication: Pelvic pain. UTIs. Multiple contiguous axial images obtained through the abdomen and pelvis using 80 cc Isovue 370 contrast. Comparison: August 16, 2024. Lung bases clear. Heart not enlarged. Noncontrasted stomach and bowel loops appear nonobstructed again with normal appendix. Again tiny cul-de-sac fluid presumed physiologic. No walled off fluid collection or free air. Both kidneys enhance and excrete. Remaining liver, gallbladder, pancreas, spleen, adrenal glands, kidneys, ureters, bladder, uterus, and aorta are unremarkable. No pathologic retroperitoneal lymphadenopathy. Osseous structures intact. Impression: 1. Again tiny physiologic cul-de-sac fluid. 2. Remaining CT abdomen/pelvis with contrast exam continues to be negative.
== END 2024-10-13 23:47 | disposition home or self-care (01) ==
LOC: ED 19:23
DX: N94.6 Dysmenorrhea, unspecified (principal); Z79.899 Other long term (current) drug therapy
CPT/HCPCS: 74177; 81001; 81025; 96361; 96374; 96375; 96376; 99284; 99285; J1171; J2405

== ENCOUNTER 2024-11-21 16:40 | Emergency (ER) | payer BC ==
[2024-11-21 17:12] VITALS: RESP 18; TEMP 97.9
[2024-11-21 17:33] LABS: HCG URINE TEST NEGATIVE (NEGATIVE)
[2024-11-21] MEDS ORDERED: Zofran 4 MG/2 ML VIAL ONE ×2 (17:33→20:33)
[2024-11-21] MEDS ORDERED: Hydromorphone 1 mg/ml Injection ONE ×2 (17:33→20:33)
[2024-11-21] MEDS: Zofran 4 MG/2 ML VIAL IV ONE ×2 (17:35→20:34)
[2024-11-21 17:38] LABS: Appearance Clear (Clear); Bacteria None Seen /HPF (None Seen); Bilirubin Negative (Negative); Blood Negative (Negative); Epithelial Cells None Seen /HPF (None Seen); Glucose, Urine Negative (Negative); Hyaline Casts NONE SEEN /LPF (0-2); Ketones Negative (Negative); Leukocyte Esterase Negative (Negative); Nitrite Negative (Negative); Protein,Urine Dip Negative (Negative); RBC 0-2 /HPF (0-5); Specific Gravity 1.015 (1.005-1.030); WBC 0-2 /HPF (0-5)
[2024-11-21] MEDS: Hydromorphone 1 mg/ml Injection IV ONE ×2 (17:38→20:34)
[2024-11-21 17:45] LABS: Absolute Neutrophil Ct (ANC) 3.76 x10^3/uL (1.56-6.13); BASOPHIL % 0.6 % (0.1-1.2); Basophil (Absolute #) 0.04 x10^3/uL (0.01-0.08); Eosinophil % 2.1 % (0.7-5.8); Eosinophil (Absolute #) 0.14 x10^3/uL (0.04-0.36); Hematocrit 42.6 % (34.1-44.9); Hemoglobin 14.5 g/dL (11.2-15.7); IMMATURE GRAN # 0.01 x10^3u/L (0.001-0.031); IMMATURE GRAN % 0.2 % (0.001-0.429); Lymphocyte (Absolute #) 2.12 x10^3/uL (1.18-3.74); Lymphocytes % 32.2 % (19.3-51.7); Mean Cell Volume 85.9 fL (79.4-94.8); Mean Corpuscular Hemoglobin 29.2 pg (25.6-32.2); Mean Platelet Volume 10.6 fL (9.4-12.3); Monocyte (Absolute #) 0.51 x10^3/uL (0.24-0.86); Monocytes % 7.8 % (4.7-12.5); Neutrophil % 57.1 % (34.0-71.1); Platelet Count 267 x10^3/uL (182-369); Red Blood Count 4.96 x10^6/uL (3.93-5.22); Red Cell Distribution Width 12.6 % (11.7-14.4); White Blood Count 6.6 x10^3/uL (3.98-10.04)
--- NOTE | 2024-11-21 17:46 | ERPHSYRPT ---
- History of Present Illness Source: patient Exam Limitations: no limitations Patient Subjective Stated Complaint: PT states 'I was here a month ago about and they told me I had an ovarian cyst rupture. Now am passing clots and my left lower abdomen hurts so bad and I am nauseated." Triage Nursing Assessment: Pt presented alert and oriented X 3, skin pwd. Pt ambulates with a hunched over gait, able to speak in clear full sentences. PT resting comfortably on the bed. Hx Tetanus, Diphtheria Vaccination/Date Given: Yes Hx Influenza Vaccination/Date Given: No Hx Pneumococcal Vaccination/Date Given: No Immunizations Up to Date: No <DAVID JURADO - Last Filed: 11/21/24 18:42> <DEAN JOHN - Last Filed: 11/21/24 21:36> - History of Present Illness Time Seen by Provider: 11/21/24 17:14 Physician History: Patient is here with left lower abdominal pain. States that has been going on for 24 to 48 hours. Patient has been going through less than 1 pad an hour with some passing vaginal clots. She has no falls or trauma. Patient states that she was told last month that she had an ovarian cyst. She does follow with Dr. Arango. He states that she was told to come in tonight by him. She has no fever no chills. Some nausea. No vomiting. Patient is taking PO well. Same number of urinations and defecations. The patient has no signs of altered mental status, nuchal rigidity, signs of meningitis. The patient is up-to-date on all vaccinations. (DAVID JURADO) Allergies/Adverse Reactions: amoxicillin Allergy (Intermediate, Verified 10/13/24 19:46) Difficulty Breathing cephalexin [From Keflex] Allergy (Intermediate, Verified 10/13/24 19:46) Rash cetirizine [From Zyrtec] Allergy (Intermediate, Verified 10/13/24 19:46) Hives metronidazole Allergy (Intermediate, Verified 10/13/24 19:46) Difficulty Breathing AND RASH trazodone Allergy (Intermediate, Verified 10/13/24 19:46) Hives ketorolac [From Toradol] Allergy (Mild, Verified 10/13/24 19:46) Muscle Aches guaifenesin [From Mucinex] Allergy (Verified 10/13/24 19:46) Rash RASH Home Medications: Paroxetine HCl 20 mg [Paxil 20 MG] 40 mg PO HS MDD 1 tab hs 09/23/17 [History] Clonazepam [Klonopin] 2 mg PO DAILY 10/13/24 [History] Norgestimate-Ethinyl Estradiol [Sprintec 28 Day Tablet] 1 each PO DAILY 11/21/24 [History] Travel Risk - International Travel Have you traveled outside of the country in past 3 weeks: No - Emerging Infectious Disease Are you exhibiting symptoms associated with any current EIDs: No Symptoms: Abdominal Pain <DAVID JURADO - Last Filed: 11/21/24 18:42> - Past Medical History Pertinent Past Medical History: Yes Neurological History: No Pertinent History ENT History: No Pertinent History Cardiac History: No Pertinent History Respiratory History: No Pertinent History Endocrine Medical History: No Pertinent History Musculoskeletal History: No Pertinent History GI Medical History: No Pertinent History History: No Pertinent History Psycho-Social History: Anxiety, Other Female Reproductive Disorders: No Pertinent History Other Medical History: insomnia - Past Surgical History Past Surgical History: Yes Neuro Surgical History: No Pertinent History Cardiac: No Pertinent History Respiratory: No Pertinent History Gastrointestinal: No Pertinent History Genitourinary: No Pertinent History Musculoskeletal: No Pertinent History Female Surgical History: Other Other Surgical History: c section. cyst removed from sinus Significant Family History: other (father had afib at age 19) - Female History Hx Last Menstrual Period: 10/27/2024 Hx Now: (unknown) - Social History Smoking Status: Never smoker How long have you smoked: vapes Exposure to second hand smoke: Yes Drug Use: none - Social Determinants of Health Will the patient participate in the screening: Yes Do you worry about a steady place to live?: No Do you have any problems with any of the following?: No known problems In the past 12 months,have you had to go without utilities?: No Transportation Issues: No Has anyone in your support network made you feel unsafe?: No Have you or anyone in your house had to go w/o enough food: No <DAVID JURADO - Last Filed: 11/21/24 18:42> - Physical Exam SpO2: 98 <DAVID JURADO - Last Filed: 11/21/24 18:42> - Nursing Vital Signs Nursing Vital Signs: Initial Vital Signs Temperature 97.9 F 11/21/24 17:08 Pulse Rate 67 11/21/24 17:08 Respiratory Rate 18 11/21/24 17:08 Blood Pressure 137/78 11/21/24 17:08 O2 Sat by Pulse Oximetry 99 11/21/24 17:08 Pain Scale Pain Intensity 2 - Physical Exam Comments: 11/21/24 17:45 Review of Systems Constitutional: Negative for fever. HENT: Negative for congestion. Respiratory: Negative for shortness of breath. Cardiovascular: Negative for chest pain. Gastrointestinal: Left lower quadrant pain Genitourinary: Negative for dysuria. Musculoskeletal: Negative for back pain. Skin: Negative for rash. Neurological: Negative for headaches. Psychiatric/Behavioral: Negative for behavioral problems. All other systems reviewed and are negative. Physical Exam Vitals signs and nursing note reviewed. Constitutional: Appearance: Patient is well-developed. HENT: Head: Normocephalic and atraumatic. Eyes: Conjunctiva/sclera: Conjunctivae normal. Neck: Musculoskeletal: Normal range of motion. Trachea: No tracheal deviation. Cardiovascular: Rate and Rhythm: Normal rate. Heart sounds normal. Pulmonary: Effort: Pulmonary effort is normal. No respiratory distress. Abdominal: Palpations: Abdomen is soft. Left lower quadrant tenderness to palpation without rebound or guarding Musculoskeletal: General: No deformity. Skin: General: Skin is warm and dry. Neurological/ Psychiatric: Mental Status: Mental status, behavior, interaction with environment is appropriate for patient's age and condition (DAVID JURADO) - Course Nursing assessment & vital signs reviewed: Yes <DAVID JURADO - Last Filed: 11/21/24 18:42> Ordered Tests: Active Orders 24 hr Category Date Time Status IV Insertion STAT Care 11/21/24 17:19 Active ABDOMEN AND PELVIS W CONTRAST [CT] Stat Exams 11/21/24 18:04 Taken PELVIS TRANS VAGINAL [US] Routine Exams 11/21/24 17:31 Taken CBC W DIFF Stat Lab 11/21/24 17:35 Completed CMP Stat Lab 11/21/24 17:35 Completed HCG QUALITATIVE, URINE Stat Lab 11/21/24 17:22 Completed LIPASE Stat Lab 11/21/24 17:35 Completed UA W/RFX UR CULTURE Stat Lab 11/21/24 17:22 Completed Medication Summary Discontinued Medications Generic Name Dose Route Start Last Admin Trade Name Todq PRN Reason Stop Dose Admin Hydromorphone HCl 1 mg 11/21/24 17:19 11/21/24 17:38 Hydromorphone 1 Mg/1ml Inj IV 11/21/24 17:20 1 mg STAT ONE Administration Hydromorphone HCl Confirm 11/21/24 17:33 Hydromorphone 1 Mg/1ml Inj Administered 11/21/24 17:34 Dose 1 mg .ROUTE .STK-MED ONE Hydromorphone HCl 1 mg 11/21/24 20:20 11/21/24 20:34 Hydromorphone 1 Mg/1ml Inj IV 11/21/24 20:21 1 mg STAT ONE Administration Hydromorphone HCl Confirm 11/21/24 20:33 Hydromorphone 1 Mg/1ml Inj Administered 11/21/24 20:34 Dose 1 mg .ROUTE .STK-MED ONE Ketorolac Tromethamine 30 mg 11/21/24 18:10 11/21/24 18:18 Ketorolac Tromethamine 30 Mg/Ml Inj IV 11/21/24 18:11 30 mg STAT ONE Administration Ketorolac Tromethamine Confirm 11/21/24 18:16 Ketorolac Tromethamine 30 Mg/Ml Inj Administered 11/21/24 18:17 Dose 30 mg .ROUTE .STK-MED ONE Ondansetron HCl 8 mg 11/21/24 17:19 11/21/24 17:35 Ondansetron Hcl 4 Mg/2 Ml Vial IV 11/21/24 17:20 8 mg STAT ONE Administration Ondansetron HCl Confirm 11/21/24 17:33 Ondansetron Hcl 4 Mg/2 Ml Vial Administered 11/21/24 17:34 Dose 8 mg .ROUTE .STK-MED ONE Ondansetron HCl 4 mg 11/21/24 20:19 11/21/24 20:34 Ondansetron Hcl 4 Mg/2 Ml Vial IV 11/21/24 20:20 4 mg STAT ONE Administration Ondansetron HCl Confirm 11/21/24 20:33 Ondansetron Hcl 4 Mg/2 Ml Vial Administered 11/21/24 20:34 Dose 4 mg .ROUTE .STK-MED ONE Lab/Rad Data: Laboratory Result Diagrams 11/21/24 17:35 11/21/24 17:35 Laboratory Results 11/21/24 11/21/24 11/21/24 Range/Units 17:35 17:35 17:22 WBC 6.6 (3.98-10.04) x10^3/uL RBC 4.96 (3.93-5.22) x10^6/uL Hgb 14.5 (11.2-15.7) g/dL Hct 42.6 (34.1-44.9) % MCV 85.9 (79.4-94.8) fL MCH 29.2 (25.6-32.2) pg MCHC 34.0 (32.2-35.5) g/dL RDW 12.6 (11.7-14.4) % Plt Count 267 (182-369) x10^3/uL MPV 10.6 (9.4-12.3) fL Gran % 57.1 (34.0-71.1) % Immature Gran % (Auto) 0.2 (0.001-0.429) % Nucleat RBC Rel Count 0.0 (0.00-0.2) % Eos # (Auto) 0.14 (0.04-0.36) x10^3/uL Immature Gran # (Auto) 0.01 (0.001-0.031) x10^3u/L Absolute Lymphs (auto) 2.12 (1.18-3.74) x10^3/uL Absolute Monos (auto) 0.51 (0.24-0.86) x10^3/uL Absolute Nucleated RBC 0.00 (0.00-0.012) x10^3u/L Lymphocytes % 32.2 (19.3-51.7) % Monocytes % 7.8 (4.7-12.5) % Eosinophils % 2.1 (0.7-5.8) % Basophils % 0.6 (0.1-1.2) % Absolute Granulocytes 3.76 (1.56-6.13) x10^3/uL Basophils # 0.04 (0.01-0.08) x10^3/uL Sodium 140 (135-145) mmol/L Potassium 3.9 (3.5-5.1) mmol/L Chloride 104 (98-107) mmol/L Carbon Dioxide 21 L (22-30) mmol/L Anion Gap 18.8 H (5-15) MEQ/L BUN 11 (7-17) mg/dL Creatinine 0.78 (0.52-1.04) mg/dL Estimated GFR 110.8 ML/MIN Glucose 111 H (74-106) mg/dL Calcium 10.2 (8.4-10.2) mg/dL Total Bilirubin 0.90 (0.2-1.3) mg/dL AST 26 (14-36) U/L ALT 19 (0-35) U/L Alkaline Phosphatase 147 H (38-126) U/L Serum Total Protein 7.8 (6.3-8.2) g/dL Albumin 4.9 (3.5-5.0) g/dL Lipase 104 (23-300) U/L Urine Color Yellow (Yellow) Urine Appearance Clear (Clear) Urine pH 7.0 (4.6-8.0) Ur Specific Anabel 1.015 (1.005-1.030) Urine Protein Negative (Negative) Urine Glucose (UA) Negative (Negative) mg/dL Urine Ketones Negative (Negative) Urine Blood Negative (Negative) Urine Nitrite Negative (Negative) Urine Bilirubin Negative (Negative) Urine Urobilinogen 1.0 A (0.2) mg/dL Ur Leukocyte Esterase Negative (Negative) U Hyaline Cast (Auto) NONE SEEN (0-2) /LPF Urine Microscopic RBC 0-2 (0-5) /HPF Urine Microscopic WBC 0-2 (0-5) /HPF Ur Epithelial Cells None Seen (None Seen) /HPF Urine Bacteria None Seen (None Seen) /HPF Urine Culture Reflexed NO (NO) Urine HCG, Qual (NEGATIVE) 11/21/24 Range/Units 17:22 WBC (3.98-10.04) x10^3/uL RBC (3.93-5.22) x10^6/uL Hgb (11.2-15.7) g/dL Hct (34.1-44.9) % MCV (79.4-94.8) fL MCH (25.6-32.2) pg MCHC (32.2-35.5) g/dL RDW (11.7-14.4) % Plt Count (182-369) x10^3/uL MPV (9.4-12.3) fL Gran % (34.0-71.1) % Immature Gran % (Auto) (0.001-0.429) % Nucleat RBC Rel Count (0.00-0.2) % Eos # (Auto) (0.04-0.36) x10^3/uL Immature Gran # (Auto) (0.001-0.031) x10^3u/L Absolute Lymphs (auto) (1.18-3.74) x10^3/uL Absolute Monos (auto) (0.24-0.86) x10^3/uL Absolute Nucleated RBC (0.00-0.012) x10^3u/L Lymphocytes % (19.3-51.7) % Monocytes % (4.7-12.5) % Eosinophils % (0.7-5.8) % Basophils % (0.1-1.2) % Absolute Granulocytes (1.56-6.13) x10^3/uL Basophils # (0.01-0.08) x10^3/uL Sodium (135-145) mmol/L Potassium (3.5-5.1) mmol/L Chloride (98-107) mmol/L Carbon Dioxide (22-30) mmol/L Anion Gap (5-15) MEQ/L BUN (7-17) mg/dL Creatinine (0.52-1.04) mg/dL Estimated GFR ML/MIN Glucose (74-106) mg/dL Calcium (8.4-10.2) mg/dL Total Bilirubin (0.2-1.3) mg/dL AST (14-36) U/L ALT (0-35) U/L Alkaline Phosphatase (38-126) U/L Serum Total Protein (6.3-8.2) g/dL Albumin (3.5-5.0) g/dL Lipase (23-300) U/L Urine Color (Yellow) Urine Appearance (Clear) Urine pH (4.6-8.0) Ur Specific Anabel (1.005-1.030) Urine Protein (Negative) Urine Glucose (UA) (Negative) mg/dL Urine Ketones (Negative) Urine Blood (Negative) Urine Nitrite (Negative) Urine Bilirubin (Negative) Urine Urobilinogen (0.2) mg/dL Ur Leukocyte Esterase (Negative) U Hyaline Cast (Auto) (0-2) /LPF Urine Microscopic RBC (0-5) /HPF Urine Microscopic WBC (0-5) /HPF Ur Epithelial Cells (None Seen) /HPF Urine Bacteria (None Seen) /HPF Urine Culture Reflexed (NO) Urine HCG, Qual NEGATIVE (NEGATIVE) - Progress Progress: improved Counseled pt/family regarding: lab results, diagnosis, need for follow-up, rad results <DAVID JURADO - Last Filed: 11/21/24 18:42> <DEAN JOHN - Last Filed: 11/21/24 21:36> - Progress Progress Note: 11/21/24 17:46 Differential diagnosis includes kidney stone, compression fracture, infection, UTI, triple AAA - basic labs including: CBC, lipase, CMP, UA - insert IV for symptom management - consider imaging: CT ab/pelvis or U/S Reevaluation Patient feels improved with medication. 11/21/24 18:07 Ultrasound was obtained by entry level installation technicianMargo. We do not get an official read tonight. We only get a preliminary read by her. She did not see a left ovarian torsion. She did see bilateral ovarian cysts. States that right and left ovary did get good blood flow. She did recommend a follow-up CT scan to better visualize the cysts. As of now patient feels improved with pain medication. Patient has no leukocytosis, stable blood cell count. Continue close ER monitoring. 11/21/24 18:42 Transfer of care to oncoming ER physician at 7 PM, Dr. John. He will follow- up on all labs and imaging. Pending CT scan. Disposition per CT scan, reexam and labs, other imaging. (DAVID JURADO) The patient was turned over to me at shift change we are just basically waiting on the CT abdomen pelvis to be read it came back normal. The patient stable for discharge 11/21/24 21:35 (DEAN JOHN) - Departure Critical Care Time: No <DAVID JURADO - Last Filed: 11/21/24 18:42> - Departure Departure Disposition: Home <DEAN JOHN - Last Filed: 11/21/24 21:36> - Departure Clinical Impression: Lower abdominal pain Condition: Stable Referrals: BENOIT SCHWARZ, [facility] [Primary Care Provider, UNKNOWN] - Follow up/PCP as directed Instructions: Abdominal pain
[2024-11-21 18:01] LABS: ALBUMIN 4.9 g/dL (3.5-5.0); ANION GAP 18.8 MEQ/L (5-15); BILIRUBIN,TOTAL 0.9 mg/dL (0.2-1.3); Calcium 10.2 mg/dL (8.4-10.2); Creatinine 1 0.78 mg/dL (0.52-1.04); EST GLOMERULAR FILTRATION RATE 110.8 ML/MIN; Potassium 3.9 mmol/L (3.5-5.1); Total Protein 7.8 g/dL (6.3-8.2)
[2024-11-21] MEDS ORDERED: TORAdol 30 mg Injection ONE (18:16)
[2024-11-21] MEDS: TORAdol 30 mg Injection IV ONE (18:18)
[2024-11-21 18:26] VITALS: PULSE 86
[2024-11-21 20:42] VITALS: O2SAT 100
[2024-11-21 21:10] VITALS: BP 117/72
--- NOTE | 2024-11-22 08:43 | XRAY ---
Indication: Left ovarian torsion. Two-dimensional transvaginal pelvic sonogram performed. Comparison: November 10, 2023 Uterus again retroflexed measuring 6.8 x 3.1 x 4.9 cm. No focal solid/cystic uterine mass. Endometrial stripe measures 7.8 mm. No endometrial cavity mass or fluid collection. Right ovary measures 2.1 x 1.6 x 2.3 cm and left measures 4.7 x 2.4 x 2.7 cm. Normal perfusion and follicular cysts bilaterally. Tiny left adnexa free fluid with low-level echogenicities, possibly from ruptured complex hemorrhagic cyst. Impression: Tiny left adnexa free fluid possibly from ruptured cyst as detailed. Remaining transvaginal pelvic sonogram negative. Comment: Preliminary report was given.
--- NOTE | 2024-11-22 08:49 | XRAY ---
Indication: Left lower quadrant pain. Multiple contiguous axial images obtained through the abdomen and pelvis using 80 cc Isovue 370 contrast. Comparison: August 16, 2024 and October 13, 2024 Lung bases remain clear. Heart not enlarged. Noncontrasted stomach and bowel loops appear nonobstructed again with normal appendix. Again tiny cul-de-sac fluid presumed physiologic. Remaining liver, gallbladder, pancreas, spleen, adrenal glands, kidneys, ureters, bladder, uterus, and aorta are normal in CT appearance and attenuation. No pathologic retroperitoneal lymphadenopathy. Osseous structures intact. Impression: Again tiny physiologic cul-de-sac fluid. Remaining CT abdomen/pelvis with contrast exam continues to be negative.
== END 2024-11-21 22:09 | disposition home or self-care (01) ==
LOC: ED 16:40
DX: R10.32 Left lower quadrant pain (principal); N93.9 Abnormal uterine and vaginal bleeding, unspecified; Z79.899 Other long term (current) drug therapy
CPT/HCPCS: 36415; 74177; 76830; 80053; 81001; 81025; 83690; 85025; 96374; 96375; 96376; 99284; 99285; J1171; J1885; J2405

== ENCOUNTER 2024-11-28 14:24 | Emergency (ER) | payer BC ==
[2024-11-28] MEDS ORDERED: Sodium Chloride 0.9% 1000 ML 1,000 ML ONE (14:50)
[2024-11-28] MEDS: Sodium Chloride 0.9% 1000 ML 1,000 ML IV SCH (14:52)
[2024-11-28 14:54] VITALS: TEMP 98.1
--- NOTE | 2024-11-28 15:00 | ERPHSYRPT ---
- History of Present Illness Time Seen by Provider: 11/28/24 14:58 Source: patient Exam Limitations: no limitations Patient Subjective Stated Complaint: Pt. states, "I'm having pain in my uterine area and low back. I feel like something is trying to fall out of me. I am having thick white vaginal discharge." Triage Nursing Assessment: Pt. arrives via w/c, A&Ox3, Skin P/W/D, Resp. even unlabored, Abdome soft, sl. tender. No edema. Physician History: 19-year-old female presents to emergency department for evaluation of lower abdominal pain that radiates to her back. Patient states that it feels like it is her uterus. No trauma. No fever. No diarrhea no rash. No vomiting. Pain described as an ache that is localized. Patient admits to white vaginal discharge. Patient states that she does not believe she may have a STI. Symptoms are mild to moderate in intensity. No specific worsening or improving factors. Patient otherwise feels well. She voices no other complaints or concerns at this time. Patient declined pain medication states she prefers to wait to find out what is wrong Portions of this note were created with voice recognition technology. There may be grammatical, spelling, punctuation or sound alike errors Timing/Duration: today Severity: moderate Modifying Factors: Improves With: nothing Associated Symptoms: denies symptoms Allergies/Adverse Reactions: amoxicillin Allergy (Intermediate, Verified 10/13/24 19:46) Difficulty Breathing cephalexin [From Keflex] Allergy (Intermediate, Verified 10/13/24 19:46) Rash cetirizine [From Zyrtec] Allergy (Intermediate, Verified 10/13/24 19:46) Hives metronidazole Allergy (Intermediate, Verified 10/13/24 19:46) Difficulty Breathing AND RASH trazodone Allergy (Intermediate, Verified 10/13/24 19:46) Hives ketorolac [From Toradol] Allergy (Mild, Verified 10/13/24 19:46) Muscle Aches guaifenesin [From Mucinex] Allergy (Verified 10/13/24 19:46) Rash RASH Home Medications: Paroxetine HCl 20 mg [Paxil 20 MG] 40 mg PO HS MDD 1 tab hs 09/23/17 [History] Clonazepam [Klonopin] 2 mg PO DAILY 10/13/24 [History] Norgestimate-Ethinyl Estradiol [Sprintec 28 Day Tablet] 1 each PO DAILY 11/21/24 [History] Hx Tetanus, Diphtheria Vaccination/Date Given: Yes Hx Influenza Vaccination/Date Given: No Hx Pneumococcal Vaccination/Date Given: No Immunizations Up to Date: No Travel Risk - International Travel Have you traveled outside of the country in past 3 weeks: No - Emerging Infectious Disease Are you exhibiting symptoms associated with any current EIDs: No Symptoms: Abdominal Pain - Review of Systems Constitutional: No Symptoms, No Fever, No Chills Eyes: No Symptoms Ears, Nose, & Throat: No Symptoms Respiratory: No Symptoms, No Cough, No Dyspnea Cardiac: No Symptoms, No Chest Pain, No Edema, No Syncope Abdominal/Gastrointestinal: No Symptoms, No Abdominal Pain, No Nausea, No Vomiting, No Diarrhea Genitourinary Symptoms: No Symptoms, No Dysuria Musculoskeletal: No Symptoms, No Back Pain, No Neck Pain Skin: No Symptoms, No Rash Neurological: No Symptoms, No Dizziness, No Focal Weakness, No Sensory Changes Psychological: No Symptoms Endocrine: No Symptoms Hematologic/Lymphatic: No Symptoms Immunological/Allergic: No Symptoms All Other Systems: Reviewed and Negative - Past Medical History Pertinent Past Medical History: Yes Neurological History: No Pertinent History ENT History: No Pertinent History Cardiac History: No Pertinent History Respiratory History: No Pertinent History Endocrine Medical History: No Pertinent History Musculoskeletal History: No Pertinent History GI Medical History: No Pertinent History History: No Pertinent History Psycho-Social History: Anxiety, Other Female Reproductive Disorders: No Pertinent History Other Medical History: insomnia - Past Surgical History Past Surgical History: Yes Neuro Surgical History: No Pertinent History Cardiac: No Pertinent History Respiratory: No Pertinent History Gastrointestinal: No Pertinent History Genitourinary: No Pertinent History Musculoskeletal: No Pertinent History Female Surgical History: Other Other Surgical History: c section. cyst removed from sinus Significant Family History: other (father had afib at age 19) - Female History Hx Last Menstrual Period: 11/21/24 Hx Now: No - Social History Smoking Status: Never smoker How long have you smoked: vapes Exposure to second hand smoke: Yes Drug Use: none - Social Determinants of Health Will the patient participate in the screening: Yes Do you worry about a steady place to live?: No Do you have any problems with any of the following?: No known problems In the past 12 months,have you had to go without utilities?: No Transportation Issues: No Has anyone in your support network made you feel unsafe?: No Have you or anyone in your house had to go w/o enough food: No - Nursing Vital Signs Nursing Vital Signs: Initial Vital Signs Temperature 98.1 F 11/28/24 14:25 Pulse Rate 62 11/28/24 14:25 Respiratory Rate 18 11/28/24 14:25 Blood Pressure 149/124 11/28/24 14:25 O2 Sat by Pulse Oximetry 98 11/28/24 14:25 Pain Scale Pain Intensity 9 - Physical Exam General Appearance: no apparent distress, alert Eye Exam: PERRL/EOMI, eyes nml inspection Ears, Nose, Throat Exam: normal ENT inspection, pharynx normal, moist mucous membranes Neck Exam: normal inspection, full range of motion Respiratory Exam: normal breath sounds, lungs clear, No respiratory distress Cardiovascular Exam: regular rate/rhythm, normal heart sounds, normal peripheral pulses Gastrointestinal/Abdomen Exam: soft, normal bowel sounds, No tenderness, No mass Back Exam: normal inspection, normal range of motion, No CVA tenderness, No vertebral tenderness Extremity Exam: normal inspection, normal range of motion, pelvis stable Neurologic Exam: alert, oriented x 3, cooperative, normal mood/affect, sensation nml, No motor deficits Skin Exam: normal color, warm, dry, No rash Lymphatic Exam: No adenopathy SpO2 Interpretation: normal SpO2: 100 O2 Delivery: Room Air - Course Nursing assessment & vital signs reviewed: Yes - CT Exams Abdomen/Pelvis CT Interpretation: Tele-radiologist Report (Stable disc bulge otherwise no acute findings) Ordered Tests: Active Orders 24 hr Category Date Time Status IV Insertion STAT Care 11/28/24 14:44 Active ABDOMEN AND PELVIS W/0 CONTRAS [CT] Stat Exams 11/28/24 14:45 Completed CBC W DIFF Stat Lab 11/28/24 15:16 Completed CMP Stat Lab 11/28/24 15:16 Completed CULTURE,URINE Stat Lab 11/28/24 14:45 Received HCG QUALITATIVE, URINE Stat Lab 11/28/24 15:16 Completed LIPASE Stat Lab 11/28/24 15:16 Completed UA W/RFX UR CULTURE Stat Lab 11/28/24 14:45 Completed Medication Summary Generic Name Dose Route Start Last Admin Trade Name Freq PRN Reason Stop Dose Admin Sodium Chloride 1,000 mls @ 100 mls/hr 11/28/24 14:45 11/28/24 14:52 Sodium Chloride 0.9% 1000 Ml IV 12/28/24 14:44 100 mls/hr .Q10H KYLE Administration Discontinued Medications Generic Name Dose Route Start Last Admin Trade Name Freq PRN Reason Stop Dose Admin Morphine Sulfate 4 mg 11/28/24 17:20 Morphine Sulfate 4 Mg/Ml Injection IV 11/28/24 17:21 STAT ONE Nitrofurantoin Macrocrystals 100 mg 11/28/24 16:36 11/28/24 16:42 Nitrofurantoin Macro 100 Mg Capsule PO 11/28/24 16:37 100 mg STAT ONE Administration Nitrofurantoin Macrocrystals Confirm 11/28/24 16:41 Nitrofurantoin Macro 100 Mg Capsule Administered 11/28/24 16:42 Dose 100 mg .ROUTE .[place] ONE Lab/Rad Data: Laboratory Result Diagrams 11/28/24 15:16 11/28/24 15:16 Laboratory Results 11/28/24 11/28/24 11/28/24 Range/Units 16:03 15:16 15:16 WBC (3.98-10.04) x10^3/uL RBC (3.93-5.22) x10^6/uL Hgb (11.2-15.7) g/dL Hct (34.1-44.9) % MCV (79.4-94.8) fL MCH (25.6-32.2) pg MCHC (32.2-35.5) g/dL RDW (11.7-14.4) % Plt Count (182-369) x10^3/uL MPV (9.4-12.3) fL Gran % (34.0-71.1) % Immature Gran % (Auto) (0.001-0.429) % Nucleat RBC Rel Count (0.00-0.2) % Eos # (Auto) (0.04-0.36) x10^3/uL Immature Gran # (Auto) (0.001-0.031) x10^3u/L Absolute Lymphs (auto) (1.18-3.74) x10^3/uL Absolute Monos (auto) (0.24-0.86) x10^3/uL Absolute Nucleated RBC (0.00-0.012) x10^3u/L Lymphocytes % (19.3-51.7) % Monocytes % (4.7-12.5) % Eosinophils % (0.7-5.8) % Basophils % (0.1-1.2) % Absolute Granulocytes (1.56-6.13) x10^3/uL Basophils # (0.01-0.08) x10^3/uL Sodium (135-145) mmol/L Potassium (3.5-5.1) mmol/L Chloride (98-107) mmol/L Carbon Dioxide (22-30) mmol/L Anion Gap (5-15) MEQ/L BUN (7-17) mg/dL Creatinine (0.52-1.04) mg/dL Estimated GFR ML/MIN Glucose (74-106) mg/dL Calcium (8.4-10.2) mg/dL Total Bilirubin (0.2-1.3) mg/dL AST (14-36) U/L ALT (0-35) U/L Alkaline Phosphatase (38-126) U/L Serum Total Protein (6.3-8.2) g/dL Albumin (3.5-5.0) g/dL Lipase (23-300) U/L Urine Color (Yellow) Urine Appearance (Clear) Urine pH (4.6-8.0) Ur Specific [place] (1.005-1.030) Urine Protein (Negative) Urine Glucose (UA) (Negative) mg/dL Urine Ketones (Negative) Urine Blood (Negative) Urine Nitrite (Negative) Urine Bilirubin (Negative) Urine Urobilinogen (0.2) mg/dL Ur Leukocyte Esterase (Negative) U Hyaline Cast (Auto) (0-2) /LPF Urine Microscopic RBC (0-5) /HPF Urine Microscopic WBC (0-5) /HPF Ur Epithelial Cells (None Seen) /HPF Urine Bacteria (None Seen) /HPF Urine Culture Reflexed (NO) Urine HCG, Qual NEGATIVE (NEGATIVE) Vaginal Yomaira Group DETECTED A (NEGATIVE) Yomaira species NOT DETECTED (NEGATIVE) Chlamydia DNA Probe NOT DETECTED (NEGATIVE) N.gonorrhoeae DNA Probe NOT DETECTED (NEGATIVE) T. vaginalis (PCR) NOT DETECTED (NEGATIVE) Bact vaginosis (PCR) NEGATIVE (NEGATIVE) 11/28/24 11/28/24 11/28/24 Range/Units 15:16 15:16 14:45 WBC 6.8 (3.98-10.04) x10^3/uL RBC 4.72 (3.93-5.22) x10^6/uL Hgb 13.5 (11.2-15.7) g/dL Hct 40.7 (34.1-44.9) % MCV 86.2 (79.4-94.8) fL MCH 28.6 (25.6-32.2) pg MCHC 33.2 (32.2-35.5) g/dL RDW 12.4 (11.7-14.4) % Plt Count 237 (182-369) x10^3/uL MPV 10.9 (9.4-12.3) fL Gran % 61.2 (34.0-71.1) % Immature Gran % (Auto) 0.1 (0.001-0.429) % Nucleat RBC Rel Count 0.0 (0.00-0.2) % Eos # (Auto) 0.08 (0.04-0.36) x10^3/uL Immature Gran # (Auto) 0.01 (0.001-0.031) x10^3u/L Absolute Lymphs (auto) 1.86 (1.18-3.74) x10^3/uL Absolute Monos (auto) 0.66 (0.24-0.86) x10^3/uL Absolute Nucleated RBC 0.00 (0.00-0.012) x10^3u/L Lymphocytes % 27.2 (19.3-51.7) % Monocytes % 9.7 (4.7-12.5) % Eosinophils % 1.2 (0.7-5.8) % Basophils % 0.6 (0.1-1.2) % Absolute Granulocytes 4.18 (1.56-6.13) x10^3/uL Basophils # 0.04 (0.01-0.08) x10^3/uL Sodium 138 (135-145) mmol/L Potassium 3.4 L (3.5-5.1) mmol/L Chloride 105 (98-107) mmol/L Carbon Dioxide 20 L (22-30) mmol/L Anion Gap 16.7 H (5-15) MEQ/L BUN 8 (7-17) mg/dL Creatinine 0.66 (0.52-1.04) mg/dL Estimated GFR 127.9 ML/MIN Glucose 100 (74-106) mg/dL Calcium 9.8 (8.4-10.2) mg/dL Total Bilirubin 0.90 (0.2-1.3) mg/dL AST 29 (14-36) U/L ALT 19 (0-35) U/L Alkaline Phosphatase 155 H (38-126) U/L Serum Total Protein 7.8 (6.3-8.2) g/dL Albumin 4.7 (3.5-5.0) g/dL Lipase 138 (23-300) U/L Urine Color Yellow (Yellow) Urine Appearance Clear (Clear) Urine pH 6.5 (4.6-8.0) Ur Specific [place] 1.010 (1.005-1.030) Urine Protein Negative (Negative) Urine Glucose (UA) Negative (Negative) mg/dL Urine Ketones Negative (Negative) Urine Blood Trace (Negative) Urine Nitrite Negative (Negative) Urine Bilirubin Negative (Negative) Urine Urobilinogen 1.0 A (0.2) mg/dL Ur Leukocyte Esterase Moderate A (Negative) U Hyaline Cast (Auto) NONE SEEN (0-2) /LPF Urine Microscopic RBC 0-2 (0-5) /HPF Urine Microscopic WBC 6-10 A (0-5) /HPF Ur Epithelial Cells Few (None Seen) /HPF Urine Bacteria Rare A (None Seen) /HPF Urine Culture Reflexed YES (NO) Urine HCG, Qual (NEGATIVE) Vaginal Yomaira Group (NEGATIVE) Yomaira species (NEGATIVE) Chlamydia DNA Probe (NEGATIVE) N.gonorrhoeae DNA Probe (NEGATIVE) T. vaginalis (PCR) (NEGATIVE) Bact vaginosis (PCR) (NEGATIVE) - Progress Progress: improved Progress Note: 19-year-old female presents to our ED with lower abdominal pain. Physical exam reveals some suprapubic tenderness. Physical exam otherwise unremarkable. UA significant for UTI. Patient received Macrobid in our ED prescription for Macrobid was forwarded patient's pharmacy. Workup also reveals a Yomaira vaginal infection. A prescription for Diflucan forwarded to patient's pharmacy. Patient received morphine for pain. A prescription for [place] forwarded to patient's pharmacy. Patient resting comfortably. Patient that she is ready for discharge. She voices no other complaints or concerns at this time. Portions of this note were created with voice recognition technology. There may be grammatical, spelling, punctuation or sound alike errors Complexity of problem addressed is moderate acute complicated. No critical care time. Complexity of data reviewed and analyzed is moderate. Test ordered test reviewed results analyzed and correlated clinically with history and physical exam. Risk of complication and or risk of morbidity/mortality of patient management is high. Patient received morphine for pain control. A prescription for [place] forwarded to patient's pharmacy. Vital stable. Time spent to discharge patient is approximately 15 minutes. Plan of care established for shared decision making. No social determinants of health present to impede follow-up. Portions of this note were created with voice recognition technology. There may be grammatical, spelling, punctuation or sound alike errors 11/28/24 17:23 Counseled pt/family regarding: lab results, diagnosis, need for follow-up, rad results - Departure Departure Disposition: Home Clinical Impression: UTI (urinary tract infection), Vaginal yomaira, Lower abdominal pain Condition: Stable Critical Care Time: No Referrals: BENOIT SCHWARZ FNP [Primary Care Provider, UNKNOWN] - Follow up/PCP as directed Prescriptions: Hydrocodone/APAP 5/325 [[place] 5/325 mg] 1 each PO Q6H PRN PRN #10 tablet MDD 4 PRN Reason: Pain Fluconazole 100 mg [Diflucan 100 MG] 100 mg PO DAILY #2 tablet Nitrofurantoin Macro 100 mg [Macrobid 100MG Capsule] 100 mg PO BID 7 Days #14 cap
[2024-11-28 15:17] LABS: Absolute Neutrophil Ct (ANC) 4.18 x10^3/uL (1.56-6.13); BASOPHIL % 0.6 % (0.1-1.2); Basophil (Absolute #) 0.04 x10^3/uL (0.01-0.08); Eosinophil % 1.2 % (0.7-5.8); Eosinophil (Absolute #) 0.08 x10^3/uL (0.04-0.36); Hematocrit 40.7 % (34.1-44.9); Hemoglobin 13.5 g/dL (11.2-15.7); IMMATURE GRAN # 0.01 x10^3u/L (0.001-0.031); IMMATURE GRAN % 0.1 % (0.001-0.429); Lymphocyte (Absolute #) 1.86 x10^3/uL (1.18-3.74); Lymphocytes % 27.2 % (19.3-51.7); Mean Cell Volume 86.2 fL (79.4-94.8); Mean Corpuscular Hemoglobin 28.6 pg (25.6-32.2); Mean Corpuscular Hgb Concent. 33.2 g/dL (32.2-35.5); Mean Platelet Volume 10.9 fL (9.4-12.3); Monocyte (Absolute #) 0.66 x10^3/uL (0.24-0.86); Monocytes % 9.7 % (4.7-12.5); Neutrophil % 61.2 % (34.0-71.1); Platelet Count 237 x10^3/uL (182-369); Red Blood Count 4.72 x10^6/uL (3.93-5.22); Red Cell Distribution Width 12.4 % (11.7-14.4); White Blood Count 6.8 x10^3/uL (3.98-10.04)
[2024-11-28 15:21] LABS: HCG URINE TEST NEGATIVE (NEGATIVE)
[2024-11-28 15:25] LABS: Appearance Clear (Clear); Bacteria Rare /HPF (None Seen); Bilirubin Negative (Negative); Blood Trace (Negative); Epithelial Cells Few /HPF (None Seen); Glucose, Urine Negative (Negative); Hyaline Casts NONE SEEN /LPF (0-2); Ketones Negative (Negative); Leukocyte Esterase Moderate (Negative); Nitrite Negative (Negative); Ph 6.5 (4.6-8.0); Protein,Urine Dip Negative (Negative); RBC 0-2 /HPF (0-5)
[2024-11-28 15:31] LABS: ALBUMIN 4.7 g/dL (3.5-5.0); ANION GAP 16.7 MEQ/L (5-15); BILIRUBIN,TOTAL 0.9 mg/dL (0.2-1.3); Calcium 9.8 mg/dL (8.4-10.2); Creatinine 1 0.66 mg/dL (0.52-1.04); EST GLOMERULAR FILTRATION RATE 127.9 ML/MIN; Potassium 3.4 mmol/L (3.5-5.1); Total Protein 7.8 g/dL (6.3-8.2)
[2024-11-28 16:12] VITALS: O2SAT 100
[2024-11-28] MEDS ORDERED: Macrobid 100MG Capsule ONE (16:41)
[2024-11-28] MEDS: Macrobid 100MG Capsule PO ONE (16:42)
[2024-11-28 16:47] LABS: CHLAMYDIA DNA NOT DETECTED (NEGATIVE); GC DNA Probe NOT DETECTED (NEGATIVE)
[2024-11-28 17:00] LABS: Candida Group DETECTED (NEGATIVE); Candida glab/krus NOT DETECTED (NEGATIVE)
--- NOTE | 2024-11-28 17:06 | XRAY ---
Indication: Pelvic pain. Multiple contiguous axial images obtained through the abdomen and pelvis without contrast. Lung bases remain clear. Heart not enlarged. Noncontrasted stomach and bowel loops nonobstructed again with normal appendix. No free fluid/air. Remaining liver, gallbladder, pancreas, spleen, degenerative glands, kidneys, ureters, bladder, uterus, and aorta are unremarkable for noncontrast exam. Osseous structures intact with stable mild L1-L3 broad-based disc osteophyte complex. Impression: No change compared to ER exams of August 16, October 13, and November 21, 2024. Stable L1-L3 degenerative disc bulge. Remaining CT abdomen/pelvis without contrast exam continues to be normal.
[2024-11-28] MEDS ORDERED: MORPHINE SULFATE 4 MG INJ ONE (17:25)
[2024-11-28] MEDS: MORPHINE SULFATE 4 MG INJ IV ONE (17:26)
[2024-11-28 17:33] VITALS: BP 100/77; PULSE 80; RESP 18
== END 2024-11-28 17:40 | disposition home or self-care (01) ==
LOC: ED 14:24
DX: N39.0 Urinary tract infection, site not specified (principal); B37.31 Acute candidiasis of vulva and vagina; R10.30 Lower abdominal pain, unspecified; M54.50 Low back pain, unspecified; Z79.891 Long term (current) use of opiate analgesic; Z79.899 Other long term (current) drug therapy
CPT/HCPCS: 36415; 74176; 80053; 81001; 81025; 81515; 83690; 85025; 87086; 87491; 87591; 96374; 99284; J2270; A9270-GY

== ENCOUNTER 2025-04-03 05:00 | Emergency (ER) | payer OTHER ==
[2025-04-03 05:14] VITALS: PULSE 72; TEMP 97.6; O2SAT 97
--- NOTE | 2025-04-03 05:26 | ERPHSYRPT ---
- History of Present Illness Time Seen by Provider: 04/03/25 05:19 Source: patient Exam Limitations: no limitations Patient Subjective Stated Complaint: pt reports a headache and nausea for one week. states nothing she has taken will relieve the pain. reports history of mi graines. Triage Nursing Assessment: pt is aox3, pupils perrl, speech is clear, appropriate, afebrile, resps easy and non labored, cap refill < 3 seconds, radial pulses strong and equal, pt skin pink warm dry. Physician History: Patient is a 19-year-old female with a history of chronic recurrent migraine headaches. Patient states this particular headache started 1 week ago. She has taken [id number] analgesics with no significant improvement. No nausea no vomiting no diarrhea. No fever. No nuchal rigidity no meningeal signs. Today's headache is typical of her usual migraine headache. Pain was of gradual onset. No associated trauma. Symptoms are moderate in intensity. No specific worsening or improving factors. Patient voices no other complaints or concerns at this time. Portions of this note were created with voice recognition technology. There may be grammatical, spelling, punctuation or sound alike errors pt reports a headache and nausea for one week. states nothing she has taken will relieve the pain. reports history of migraines. pt is aox3, pupils perrl, speech is clear, appropriate, afebrile, resps easy and non labored, cap refill < 3 seconds, radial pulses strong and equal, pt skin pink warm dry. Timing/Duration: today Severity: moderate Modifying Factors: Improves With: nothing Associated Symptoms: denies symptoms Allergies/Adverse Reactions: amoxicillin Allergy (Intermediate, Verified 04/03/25 05:15) Difficulty Breathing cephalexin [From Keflex] Allergy (Intermediate, Verified 04/03/25 05:15) Rash cetirizine [From Zyrtec] Allergy (Intermediate, Verified 04/03/25 05:15) Hives metronidazole Allergy (Intermediate, Verified 04/03/25 05:15) Difficulty Breathing AND RASH trazodone Allergy (Intermediate, Verified 04/03/25 05:15) Hives guaifenesin [From Mucinex] Allergy (Verified 04/03/25 05:15) Rash RASH Home Medications: Paroxetine HCl 20 mg [Paxil 20 MG] 40 mg PO HS MDD 1 tab hs 09/23/17 [History] Norgestimate-Ethinyl Estradiol [Sprintec 28 Day Tablet] 1 each PO DAILY 11/21/24 [History] Propranolol HCl [Propranolol HCl ER] 60 mg PO DAILY 04/03/25 [History] Hx Tetanus, Diphtheria Vaccination/Date Given: Yes Hx Influenza Vaccination/Date Given: No Hx Pneumococcal Vaccination/Date Given: No Immunizations Up to Date: No Travel Risk - International Travel Have you traveled outside of the country in past 3 weeks: No - Emerging Infectious Disease Are you exhibiting symptoms associated with any current EIDs: No Symptoms: Abdominal Pain, Vomitting - Review of Systems All Other Systems: Reviewed and Negative - Past Medical History Pertinent Past Medical History: Yes Neurological History: Migraines ENT History: No Pertinent History Cardiac History: No Pertinent History Respiratory History: No Pertinent History Endocrine Medical History: No Pertinent History Musculoskeletal History: No Pertinent History GI Medical History: No Pertinent History History: No Pertinent History Psycho-Social History: Anxiety, Other Female Reproductive Disorders: No Pertinent History Other Medical History: insomnia - Past Surgical History Past Surgical History: Yes Neuro Surgical History: No Pertinent History Cardiac: No Pertinent History Respiratory: No Pertinent History Gastrointestinal: No Pertinent History Genitourinary: No Pertinent History Musculoskeletal: No Pertinent History Female Surgical History: Other Other Surgical History: c section. cyst removed from sinus Significant Family History: other (father had afib at age 19) - Female History Hx Last Menstrual Period: 03/13/25 Hx Now: No - Social History Smoking Status: Never smoker How long have you smoked: vapes Exposure to second hand smoke: No Drug Use: none - Social Determinants of Health Will the patient participate in the screening: Yes Do you worry about a steady place to live?: No Do you have any problems with any of the following?: No known problems In the past 12 months,have you had to go without utilities?: No Transportation Issues: No Has anyone in your support network made you feel unsafe?: No Have you or anyone in your house had to go w/o enough food: No - Nursing Vital Signs Nursing Vital Signs: Initial Vital Signs Temperature 97.6 F 04/03/25 05:05 Pulse Rate 72 04/03/25 05:05 Respiratory Rate 17 04/03/25 05:05 Blood Pressure 127/75 04/03/25 05:05 O2 Sat by Pulse Oximetry 97 04/03/25 05:05 Pain Scale Pain Intensity 9 - Physical Exam General Appearance: no apparent distress, alert Eye Exam: PERRL/EOMI, eyes nml inspection Ears, Nose, Throat Exam: normal ENT inspection, pharynx normal, moist mucous membranes Neck Exam: normal inspection, full range of motion Respiratory Exam: normal breath sounds, lungs clear, No respiratory distress Cardiovascular Exam: regular rate/rhythm, normal heart sounds, normal peripheral pulses Gastrointestinal/Abdomen Exam: soft, normal bowel sounds, No tenderness, No mass Back Exam: normal inspection, normal range of motion, No CVA tenderness, No vertebral tenderness Extremity Exam: normal inspection, normal range of motion, pelvis stable Neurologic Exam: alert, oriented x 3, cooperative, normal mood/affect, sensation nml, No motor deficits Skin Exam: normal color, warm, dry, No rash Lymphatic Exam: No adenopathy SpO2 Interpretation: normal SpO2: 97 O2 Delivery: Room Air - Course Nursing assessment & vital signs reviewed: Yes Ordered Tests: Active Orders 24 hr Category Date Time Status AMA [Release AMA] OM.NOW Care 04/03/25 05:57 Active IV Insertion STAT Care 04/03/25 05:16 Active CBC W DIFF Stat Lab 04/03/25 05:36 Received CMP Stat Lab 04/03/25 05:36 Received HCG QUALITATIVE, URINE Stat Lab 04/03/25 05:36 Completed UA W/RFX UR CULTURE Stat Lab 04/03/25 05:36 Received Medication Summary Generic Name Dose Route Start Last Admin Trade Name Freq PRN Reason Stop Dose Admin Sodium Chloride 1,000 mls @ 999 mls/hr 04/03/25 05:16 04/03/25 05:40 Sodium Chloride 0.9% 1000 Ml IV 04/03/25 06:16 999 mls/hr .Q1H1M STA Administration Discontinued Medications Generic Name Dose Route Start Last Admin Trade Name Freq PRN Reason Stop Dose Admin Acetaminophen 975 mg 04/03/25 05:16 04/03/25 05:48 Acetaminophen 325 Mg Tablet PO 04/03/25 05:17 Not Given STAT ONE Acetaminophen 100 mls @ 400 mls/hr 04/03/25 05:18 04/03/25 05:55 Ofirmev IV 04/03/25 05:32 Infused STAT ONE Infusion Acetaminophen Confirm 04/03/25 05:39 Ofirmev Administered 04/03/25 05:40 Dose 100 mls @ ud IV .STK-MED ONE Sodium Chloride Confirm 04/03/25 05:39 Sodium Chloride 0.9% 1000 Ml Administered 04/03/25 05:40 Dose 1,000 mls @ ud .ROUTE .STK-MED ONE Ketorolac Tromethamine 30 mg 04/03/25 05:50 04/03/25 05:56 Ketorolac Tromethamine 30 Mg/Ml Inj IV 04/03/25 05:51 Not Given STAT ONE Prochlorperazine Edisylate 10 mg 04/03/25 05:16 04/03/25 05:40 Prochlorperazine Edisylate 10 Mg/2 Ml Vial IV 04/03/25 05:17 10 mg STAT ONE Administration Prochlorperazine Edisylate Confirm 04/03/25 05:39 Prochlorperazine Edisylate 10 Mg/2 Ml Vial Administered 04/03/25 05:40 Dose 10 mg .ROUTE .STK-MED ONE Lab/Rad Data: Laboratory Results 04/03/25 Range/Units 05:36 Urine HCG, Qual NEGATIVE (NEGATIVE) - Progress Progress: improved Progress Note: Patient states that she is not allergic to Toradol. Patient advised that she requested to remove Toradol from her allergy profile during her last 3 visits. I discussed this with JULIA Marte who will remove Toradol from her allergy profile at this time. 04/03/25 05:51 Patient is a 19-year-old female with a history of chronic recurrent migraine headaches. Patient states this particular headache started 1 week ago. She has taken [id number] analgesics with no significant improvement. Patient has not been eating well. Laboratory workup ordered including viral panel. Management of her headache initiated. Patient advised staff that she could not get comfortable in the bed and she just wanted to go home to sleep. Patient decided to leave before laboratory workup resulted. Patient discharged AGAINST MEDICAL ADVICE. History obtained from patient Differential diagnosis migraine, brain mass, concussion Patient is of sound mind. Patient is appropriate to make informed and independent medical decisions. Patient understands that leaving AGAINST MEDICAL ADVICE can result in delayed diagnosis, increased risk of morbidity, mortality, short and long-term disability including . In spite of these risks, patient has decided to leave AGAINST MEDICAL ADVICE. Patient understands that she may return to our ED at any point if she reconsiders. Patient agrees to follow-up with her primary care doctor within 48 hours for reevaluation. Patient voices no other complaints or concerns at this time. We will release patient AGAINST MEDICAL ADVICE per their request. Complexity of problem addressed is moderate acute complicated. No critical care time. Complex of data reviewed and analyzed as none. Patient discharged AMA prior to availability of laboratory workup. Risk of complication and or risk of morbidity/mortality of patient management is low. Vital stable. Time spent to discharge patient AMA is approximately 15 minutes. No social determinants of health present to impede follow-up. Portions of this note were created with voice recognition technology. There may be grammatical, spelling, punctuation or sound alike errors 04/03/25 05:59 Counseled pt/family regarding: lab results, diagnosis, rad results - Departure Departure Disposition: Home Clinical Impression: Migraine Condition: Stable Critical Care Time: No Referrals: BENOIT SCHWARZ FNP [Primary Care Provider, UNKNOWN] - Follow up/PCP as directed Additional Instructions: Discharge/Care Plan KARIS LEVY was seen on 04/03/25 in the Emergency Room. The patient was counseled regarding Diagnosis,Lab results, Imaging studies, need for follow up and when to return to the Emergency Room. Prescriptions given: Discharge Note I have spoken with the patient and/or caregivers. I have explained the patient's condition, diagnosis and treatment plan based on the information available to me at this time. I have answered the patient's and/or caregiver's questions and addressed any concerns. The patient and/or caregivers have as good understanding of the patient's diagnosis, condition and treatment plan as can be expected at this point. The vital signs have been stable. The patient's condition is stable and appropriate for discharge from the emergency department. The patient will pursue further outpatient evaluation with the primary care physician or other designated or consulting physician as outlined in the discharge instructions. The patient and/or caregivers are agreeable to this plan of care and follow-up instructions have been explained in detail. The patient and/or caregivers have received these instruction. The patient/and or caregivers are aware that any significant change in condition or worsening of symptoms should prompt an immediate return to this or the closest emergency department or call 911.
[2025-04-03] MEDS ORDERED: Compazine 10 MG/2 ML ONE (05:39)
[2025-04-03] MEDS ORDERED: OFIRMEV 100 ML IV ONE (05:39)
[2025-04-03] MEDS: OFIRMEV 100 ML IV ONE (05:40)
[2025-04-03] MEDS: Compazine 10 MG/2 ML IV ONE (05:40)
[2025-04-03] MEDS: TYLENOL 325 MG PO ONE (05:48)
[2025-04-03 05:52] LABS: BASOPHIL % 0.7 % (0.1-1.2); Basophil (Absolute #) 0.04 x10^3/uL (0.01-0.08); Eosinophil (Absolute #) 0.16 x10^3/uL (0.04-0.36); HCG URINE TEST NEGATIVE (NEGATIVE); Hematocrit 38.4 % (34.1-44.9); Hemoglobin 12.6 g/dL (11.2-15.7); IMMATURE GRAN # 0.01 x10^3u/L (0.001-0.031); IMMATURE GRAN % 0.2 % (0.001-0.429); Lymphocyte (Absolute #) 2.23 x10^3/uL (1.18-3.74); Mean Corpuscular Hemoglobin 29.6 pg (25.6-32.2); Mean Corpuscular Hgb Concent. 32.8 g/dL (32.2-35.5); Monocyte (Absolute #) 0.60 x10^3/uL (0.24-0.86); NUCLEATED RBC # 0.00 x10^3u/L (0.00-0.012); NUCLEATED RBC % 0.0 % (0.00-0.2); Platelet Count 195 x10^3/uL (182-369); Red Blood Count 4.25 x10^6/uL (3.93-5.22); White Blood Count 5.6 x10^3/uL (3.98-10.04)
[2025-04-03 05:56] LABS: Glucose, Urine Negative (Negative); Protein,Urine Dip Negative (Negative); WBC 0-2 /HPF (0-5)
[2025-04-03] MEDS: TORAdol 30 mg Injection IV ONE (05:56)
[2025-04-03 06:05] LABS: Calcium 8.8 mg/dL (8.4-10.2); Carbon Dioxide 24.0 mmol/L (22-30); Creatinine 1 0.71 mg/dL (0.52-1.04); EST GLOMERULAR FILTRATION RATE 124.0 ML/MIN; Glucose 92.0 mg/dL (74-106); Potassium 3.9 mmol/L (3.5-5.1); SGOT/AST 24.0 U/L (14-36); SGPT/ALT 17.0 U/L (0-35); Total Protein 6.6 g/dL (6.3-8.2)
[2025-04-03 06:10] VITALS: BP 105/67; RESP 16
[2025-04-03 06:31] LABS: INFLUENZA A NEGATIVE (NEGATIVE); INFLUENZA B NEGATIVE (NEGATIVE); RESPIRATORY SYNCTIAL VIRUS NEGATIVE (NEGATIVE); SARS-CoV-2 Xpert Express NEGATIVE (NEGATIVE)
== END 2025-04-03 06:04 | disposition left against medical advice (07) ==
LOC: ED 05:00
DX: G43.909 Migraine, unspecified, not intractable, without status migrainosus (principal); Z79.899 Other long term (current) drug therapy

== ENCOUNTER 2025-04-17 19:03 | Emergency (ER) | payer OTHER ==
--- NOTE | 2025-04-17 19:19 | ERPHSYRPT ---
- History of Present Illness Time Seen by Provider: 04/17/25 19:19 Historian: patient, family Exam Limitations: no limitations Physician History: This is an obese 19-year-old white female patient arrives with private vehicle and is a patient of nurse practitioner Robert with a 2-day history of constant aching crampy right lower quadrant abdominal pain with intermittent sharp stabbing pains in the same region. Patient's last menstrual period was on 03/11/2025. She presents with nausea but no history of vomiting and diarrhea. She has had slight spotting and thick yellowish vaginal discharge. She has had a history of section in the past. Patient has a history of anxiety, depression, migraine headaches and insomnia. Patient is on control medication. Patient states there is no chance that she is . Timing/Duration: day(s) (2), worse Activities at Onset: none Quality: aching, cramping, sharpness, stabbing Abdominal Pain Onset Location: RLQ Pain Radiation: no radiation Severity of Pain-Max: moderate Severity of Pain-Current: moderate Modifying Factors: Improves With: other (Nausea and vaginal discharge) Associated Symptoms: loss of appetite, nausea, other (Nausea and vaginal discharge), No chest pain, No fever/chills, No shortness of breath, No vomiting Previous symptoms: no prior history, no recent treatment Allergies/Adverse Reactions: amoxicillin Allergy (Intermediate, Verified 04/17/25 19:17) Difficulty Breathing cephalexin [From Keflex] Allergy (Intermediate, Verified 04/17/25 19:17) Rash cetirizine [From Zyrtec] Allergy (Intermediate, Verified 04/17/25 19:17) Hives metronidazole Allergy (Intermediate, Verified 04/17/25 19:17) Difficulty Breathing AND RASH trazodone Allergy (Intermediate, Verified 04/17/25 19:17) Hives guaifenesin [From Mucinex] Allergy (Verified 04/17/25 19:17) Rash RASH Home Medications: Paroxetine HCl 20 mg [Paxil 20 MG] 60 mg PO HS MDD 1 tab hs 09/23/17 [History] Norgestimate-Ethinyl Estradiol [Sprintec 28 Day Tablet] 1 each PO HS 11/21/24 [History] Propranolol HCl [Propranolol HCl ER] 60 mg PO HS 04/03/25 [History] Hx Tetanus, Diphtheria Vaccination/Date Given: Yes Hx Influenza Vaccination/Date Given: No Hx Pneumococcal Vaccination/Date Given: No Travel Risk - International Travel Have you traveled outside of the country in past 3 weeks: No - Emerging Infectious Disease Are you exhibiting symptoms associated with any current EIDs: No Symptoms: Abdominal Pain, Vomitting - Review of Systems Constitutional: No Symptoms Eyes: No Symptoms Ears, Nose, & Throat: No Symptoms Respiratory: No Symptoms Cardiac: No Symptoms Abdominal/Gastrointestinal: Abdominal Pain, Nausea, Appetite Changes, No Vomiting, No Diarrhea, No Constipation Genitourinary Symptoms: Vaginal Discharge (Sick yellowish discharge) Musculoskeletal: No Symptoms Skin: No Symptoms Neurological: No Symptoms Psychological: Anxiety Endocrine: No Symptoms Hematologic/Lymphatic: No Symptoms Immunological/Allergic: No Symptoms All Other Systems: Reviewed and Negative - Past Medical History Pertinent Past Medical History: Yes Neurological History: Migraines ENT History: No Pertinent History Cardiac History: No Pertinent History Respiratory History: No Pertinent History Endocrine Medical History: No Pertinent History Musculoskeletal History: No Pertinent History GI Medical History: No Pertinent History History: No Pertinent History Psycho-Social History: Anxiety, Other Female Reproductive Disorders: No Pertinent History Other Medical History: insomnia - Past Surgical History Past Surgical History: Yes Neuro Surgical History: No Pertinent History Cardiac: No Pertinent History Respiratory: No Pertinent History Gastrointestinal: No Pertinent History Genitourinary: No Pertinent History Musculoskeletal: No Pertinent History Female Surgical History: Other Other Surgical History: c section. cyst removed from sinus Significant Family History: other (father had afib at age 19) - Female History Hx Last Menstrual Period: 03/13/25 - Social History Smoking Status: Never smoker How long have you smoked: vapes Exposure to second hand smoke: No Drug Use: none - Social Determinants of Health Will the patient participate in the screening: Yes Do you worry about a steady place to live?: No In the past 12 months,have you had to go without utilities?: No Transportation Issues: No Has anyone in your support network made you feel unsafe?: No Have you or anyone in your house had to go w/o enough food: No - Nursing Vital Signs Nursing Vital Signs: Initial Vital Signs Temperature 97.9 F 04/17/25 19:17 Pulse Rate 73 04/17/25 19:17 Respiratory Rate 18 04/17/25 19:17 Blood Pressure 134/67 04/17/25 19:17 O2 Sat by Pulse Oximetry 98 04/17/25 19:17 Pain Scale Pain Intensity 5 - Physical Exam General Appearance: mild distress, alert, anxiety, obese Eye Exam: PERRL/EOMI, eyes nml inspection Ears, Nose, Throat Exam: normal ENT inspection, moist mucous membranes Neck Exam: normal inspection, non-tender, supple, full range of motion Respiratory Exam: normal breath sounds, lungs clear, airway intact, No chest tenderness, No respiratory distress Cardiovascular Exam: regular rate/rhythm, normal heart sounds, normal peripheral pulses Gastrointestinal/Abdomen Exam: soft, normal bowel sounds, tenderness (Right lower quadrant to palpation), guarding (Right lower quadrant to palpation) Pelvic Exam: not done Rectal Exam: not done Back Exam: normal inspection, normal range of motion, No CVA tenderness, No vertebral tenderness Extremity Exam: normal inspection, normal range of motion, pelvis stable Neurologic Exam: alert, oriented x 3, cooperative, adobe developer II-XII nml as tested, nml cerebellar function, nml station & gait, sensation nml Skin Exam: normal color, warm, dry Lymphatic Exam: No adenopathy SpO2 Interpretation: normal O2 Delivery: Room Air - Course Nursing assessment & vital signs reviewed: Yes Ordered Tests: Active Orders 24 hr Category Date Time Status IV Insertion STAT Care 04/17/25 19:28 Active ABDOMEN AND PELVIS W/0 CONTRAS [CT] Stat Exams 04/17/25 19:28 Taken AMYLASE Stat Lab 04/17/25 19:30 Completed BLOOD CULTURE Stat Lab 04/17/25 19:55 Received CBC W DIFF Stat Lab 04/17/25 19:30 Completed CMP Stat Lab 04/17/25 19:30 Completed HCG QUALITATIVE, SERUM Stat Lab 04/17/25 19:30 Completed UA W/RFX UR CULTURE Stat Lab 04/17/25 19:32 Completed Medication Summary Discontinued Medications Generic Name Dose Route Start Last Admin Trade Name Freq PRN Reason Stop Dose Admin Hydromorphone HCl 0.5 mg 04/17/25 19:28 04/17/25 19:47 Hydromorphone 1 Mg/1ml Inj IV 04/17/25 19:29 0.5 mg STAT ONE Administration Hydromorphone HCl Confirm 04/17/25 19:33 Hydromorphone 1 Mg/1ml Inj Administered 04/17/25 19:34 Dose 1 mg .ROUTE .STK-MED ONE Sodium Chloride 1,000 mls @ 999 mls/hr 04/17/25 19:28 04/17/25 20:46 Sodium Chloride 0.9% 1000 Ml IV 04/17/25 20:28 Infused .Q1H1M STA Infusion Sodium Chloride Confirm 04/17/25 19:34 Sodium Chloride 0.9% 1000 Ml Administered 04/17/25 19:35 Dose 1,000 mls @ ud .ROUTE .STK-MED ONE Ketorolac Tromethamine 30 mg 04/17/25 20:45 04/17/25 20:51 Ketorolac Tromethamine 30 Mg/Ml Inj IV 04/17/25 20:46 30 mg STAT ONE Administration Ketorolac Tromethamine Confirm 04/17/25 20:51 Ketorolac Tromethamine 30 Mg/Ml Inj Administered 04/17/25 20:52 Dose 30 mg .ROUTE .STK-MED ONE Ondansetron HCl 4 mg 04/17/25 19:28 04/17/25 19:47 Ondansetron Hcl 4 Mg/2 Ml Vial IV 04/17/25 19:29 4 mg STAT ONE Administration Ondansetron HCl Confirm 04/17/25 19:33 Ondansetron Hcl 4 Mg/2 Ml Vial Administered 04/17/25 19:34 Dose 4 mg .ROUTE .STK-MED ONE Lab/Rad Data: Laboratory Result Diagrams 04/17/25 19:30 04/17/25 19:30 Laboratory Results 04/17/25 04/17/25 04/17/25 Range/Units 19:32 19:32 19:30 WBC (3.98-10.04) x10^3/uL RBC (3.93-5.22) x10^6/uL Hgb (11.2-15.7) g/dL Hct (34.1-44.9) % MCV (79.4-94.8) fL MCH (25.6-32.2) pg MCHC (32.2-35.5) g/dL RDW (11.7-14.4) % Plt Count (182-369) x10^3/uL MPV (9.4-12.3) fL Gran % (34.0-71.1) % Immature Gran % (Auto) (0.001-0.429) % Nucleat RBC Rel Count (0.00-0.2) % Eos # (Auto) (0.04-0.36) x10^3/uL Immature Gran # (Auto) (0.001-0.031) x10^3u/L Absolute Lymphs (auto) (1.18-3.74) x10^3/uL Absolute Monos (auto) (0.24-0.86) x10^3/uL Absolute Nucleated RBC (0.00-0.012) x10^3u/L Lymphocytes % (19.3-51.7) % Monocytes % (4.7-12.5) % Eosinophils % (0.7-5.8) % Basophils % (0.1-1.2) % Absolute Granulocytes (1.56-6.13) x10^3/uL Basophils # (0.01-0.08) x10^3/uL Sodium (135-145) mmol/L Potassium (3.5-5.1) mmol/L Chloride (98-107) mmol/L Carbon Dioxide (22-30) mmol/L Anion Gap (5-15) MEQ/L BUN (7-17) mg/dL Creatinine (0.52-1.04) mg/dL Estimated GFR ML/MIN Glucose (74-106) mg/dL Calcium (8.4-10.2) mg/dL Total Bilirubin (0.2-1.3) mg/dL AST (14-36) U/L ALT (0-35) U/L Alkaline Phosphatase (38-126) U/L Serum Total Protein (6.3-8.2) g/dL Albumin (3.5-5.0) g/dL Amylase (30-110) U/L Serum HCG, Qual NEGATIVE (NEGATIVE) Urine Color Yellow (Yellow) Urine Appearance Cloudy A (Clear) Urine pH >=9.0 A (4.6-8.0) Ur Specific [place] 1.020 (1.005-1.030) Urine Protein Trace A (Negative) Urine Glucose (UA) Negative (Negative) mg/dL Urine Ketones Negative (Negative) Urine Blood Negative (Negative) Urine Nitrite Negative (Negative) Urine Bilirubin Negative (Negative) Urine Urobilinogen 1.0 A (0.2) mg/dL Ur Leukocyte Esterase Negative (Negative) U Hyaline Cast (Auto) NONE SEEN (0-2) /LPF Urine Microscopic RBC 0-2 (0-5) /HPF Urine Microscopic WBC 0-2 (0-5) /HPF Ur Epithelial Cells None Seen (None Seen) /HPF Urine Bacteria None Seen (None Seen) /HPF Urine Culture Reflexed NO (NO) Chlamydia DNA Probe NOT DETECTED (NEGATIVE) N.gonorrhoeae DNA Probe NOT DETECTED (NEGATIVE) 04/17/25 04/17/25 Range/Units 19:30 19:30 WBC 10.3 H (3.98-10.04) x10^3/uL RBC 4.83 (3.93-5.22) x10^6/uL Hgb 14.2 (11.2-15.7) g/dL Hct 42.2 (34.1-44.9) % MCV 87.4 (79.4-94.8) fL MCH 29.4 (25.6-32.2) pg MCHC 33.6 (32.2-35.5) g/dL RDW 12.8 (11.7-14.4) % Plt Count 283 (182-369) x10^3/uL MPV 10.0 (9.4-12.3) fL Gran % 56.3 (34.0-71.1) % Immature Gran % (Auto) 0.3 (0.001-0.429) % Nucleat RBC Rel Count 0.0 (0.00-0.2) % Eos # (Auto) 0.09 (0.04-0.36) x10^3/uL Immature Gran # (Auto) 0.03 (0.001-0.031) x10^3u/L Absolute Lymphs (auto) 3.49 (1.18-3.74) x10^3/uL Absolute Monos (auto) 0.84 (0.24-0.86) x10^3/uL Absolute Nucleated RBC 0.00 (0.00-0.012) x10^3u/L Lymphocytes % 33.8 (19.3-51.7) % Monocytes % 8.1 (4.7-12.5) % Eosinophils % 0.9 (0.7-5.8) % Basophils % 0.6 (0.1-1.2) % Absolute Granulocytes 5.83 (1.56-6.13) x10^3/uL Basophils # 0.06 (0.01-0.08) x10^3/uL Sodium 134 L (135-145) mmol/L Potassium 3.8 (3.5-5.1) mmol/L Chloride 104 (98-107) mmol/L Carbon Dioxide 21 L (22-30) mmol/L Anion Gap 13.3 (5-15) MEQ/L BUN 9 (7-17) mg/dL Creatinine 0.68 (0.52-1.04) mg/dL Estimated GFR 127.0 ML/MIN Glucose 103 (74-106) mg/dL Calcium 9.7 (8.4-10.2) mg/dL Total Bilirubin 0.60 (0.2-1.3) mg/dL AST 28 (14-36) U/L ALT 34 (0-35) U/L Alkaline Phosphatase 116 (38-126) U/L Serum Total Protein 7.9 (6.3-8.2) g/dL Albumin 4.5 (3.5-5.0) g/dL Amylase 95 (30-110) U/L Serum HCG, Qual (NEGATIVE) Urine Color (Yellow) Urine Appearance (Clear) Urine pH (4.6-8.0) Ur Specific [place] (1.005-1.030) Urine Protein (Negative) Urine Glucose (UA) (Negative) mg/dL Urine Ketones (Negative) Urine Blood (Negative) Urine Nitrite (Negative) Urine Bilirubin (Negative) Urine Urobilinogen (0.2) mg/dL Ur Leukocyte Esterase (Negative) U Hyaline Cast (Auto) (0-2) /LPF Urine Microscopic RBC (0-5) /HPF Urine Microscopic WBC (0-5) /HPF Ur Epithelial Cells (None Seen) /HPF Urine Bacteria (None Seen) /HPF Urine Culture Reflexed (NO) Chlamydia DNA Probe (NEGATIVE) N.gonorrhoeae DNA Probe (NEGATIVE) - Progress Progress: improved, pain not gone completely, re-examined Progress Note: 04/17/25 19:40 My medical decision making and the assignment of moderate complexity of this patient's medical issue today is based on review of the patient's past medical history and list, reviewed my history present illness the workup in this patient includes placement venous line, infusion saline solution, infusion of Dilaudid, infusion of Zofran, CBC, CMP, test, urinalysis, amylase, lipase, CT scan of the abdomen pelvis without contrast. We will also obtain blood cultures. We will also obtain a urine chlamydia and gonorrhea test. Differential diagnosis includes but is not limited to urinary tract infection, pancreatitis, STI, acute appendicitis, ovarian cysts 04/17/25 21:15 I interpreted the patient's laboratory data results. Based on the laboratory data results, there are no acute, emergent medical issues. The CT scan of the abdomen pelvis without contrast was interpreted by the radiologist and I reviewed the impression. The impression states moderate diffuse fecal stasis. L1-L3 degenerative disc disease that is stable when compared to prior CT scan of the abdomen pelvis. No mention of acute appendicitis. No mention of free air or free fluid. Counseled pt/family regarding: lab results, diagnosis, rad results Medical Desision Making - Diagnostic Testing Diagnostic test were ordered, analyzed, and reviewed by me: Yes Radiological Interpretation: Reviewed by me, Teleradiologist Report - Risk of complications Low Risk: Low risk of morbidity from additional dx testing or treatment - Departure Departure Disposition: Home Clinical Impression: Right sided abdominal pain Condition: Stable Critical Care Time: No Referrals: BENOIT SCHWARZ FNP [NON-STAFF PHY W/O PRIVILEGES, UNKNOWN] - Follow up/PCP as directed Additional Instructions: Alternate Tylenol and ibuprofen every 4 hours while awake for pain control. Call your prescribing provider tomorrow, 04/18/2025, to make arrangements for further evaluation management.
[2025-04-17 19:21] VITALS: TEMP 97.9
[2025-04-17] MEDS ORDERED: Hydromorphone 1 mg/ml Injection ONE (19:33)
[2025-04-17] MEDS ORDERED: Zofran 4 MG/2 ML VIAL ONE (19:33)
[2025-04-17 19:41] LABS: BASOPHIL % 0.6 % (0.1-1.2); Basophil (Absolute #) 0.06 x10^3/uL (0.01-0.08); Eosinophil (Absolute #) 0.09 x10^3/uL (0.04-0.36); Hematocrit 42.2 % (34.1-44.9); Hemoglobin 14.2 g/dL (11.2-15.7); IMMATURE GRAN # 0.03 x10^3u/L (0.001-0.031); IMMATURE GRAN % 0.3 % (0.001-0.429); Lymphocyte (Absolute #) 3.49 x10^3/uL (1.18-3.74); Mean Corpuscular Hemoglobin 29.4 pg (25.6-32.2); Mean Corpuscular Hgb Concent. 33.6 g/dL (32.2-35.5); Monocyte (Absolute #) 0.84 x10^3/uL (0.24-0.86); NUCLEATED RBC # 0.00 x10^3u/L (0.00-0.012); NUCLEATED RBC % 0.0 % (0.00-0.2); Platelet Count 283 x10^3/uL (182-369); Red Blood Count 4.83 x10^6/uL (3.93-5.22); White Blood Count 10.3 x10^3/uL (3.98-10.04)
[2025-04-17] MEDS: Hydromorphone 1 mg/ml Injection IV ONE (19:47)
[2025-04-17] MEDS: Zofran 4 MG/2 ML VIAL IV ONE (19:47)
[2025-04-17 19:48] LABS: Glucose, Urine Negative (Negative); Protein,Urine Dip Trace (Negative); RBC 0-2 /HPF (0-5); WBC 0-2 /HPF (0-5)
[2025-04-17 19:58] LABS: HCG SERUM TEST NEGATIVE (NEGATIVE)
[2025-04-17 20:05] VITALS: RESP 16
[2025-04-17 20:26] LABS: Calcium 9.7 mg/dL (8.4-10.2); Carbon Dioxide 21.0 mmol/L (22-30); Creatinine 1 0.68 mg/dL (0.52-1.04); EST GLOMERULAR FILTRATION RATE 127.0 ML/MIN; Glucose 103.0 mg/dL (74-106); Potassium 3.8 mmol/L (3.5-5.1); SGOT/AST 28.0 U/L (14-36); SGPT/ALT 34.0 U/L (0-35); Total Protein 7.9 g/dL (6.3-8.2)
[2025-04-17] MEDS ORDERED: TORAdol 30 mg Injection ONE (20:51)
[2025-04-17] MEDS: TORAdol 30 mg Injection IV ONE (20:51)
[2025-04-17 21:05] VITALS: BP 95/50; PULSE 68; O2SAT 96
[2025-04-17 21:10] LABS: CHLAMYDIA DNA NOT DETECTED (NEGATIVE)
--- NOTE | 2025-04-18 08:40 | XRAY ---
Indication: Right lower quadrant pain. Multiple contiguous axial images obtained through the abdomen and pelvis without contrast. Comparison: November 28, 2024 Lung bases remain clear. Heart not enlarged. Stomach is now distended with food. Gallbladder contracted without gallstones. Noncontrasted stomach and bowel loops appear nonobstructed. Normal appendix. There is now moderate diffuse scattered colonic fecal debris. Remaining liver, gallbladder, pancreas, spleen, adrenal glands, kidneys, ureters, bladder, uterus, and aorta are again unremarkable for noncontrast exam. Osseous structures intact with stable mild L1-L3 broad-based disc osteophyte complex. Impression: New moderate diffuse fecal stasis. Stable L1-L3 degenerative disc disease. Remaining CT abdomen/pelvis without contrast exam continues to be negative.
== END 2025-04-17 21:30 | disposition home or self-care (01) ==
LOC: ED 19:03
DX: R10.31 Right lower quadrant pain (principal); R10.11 Right upper quadrant pain; R11.0 Nausea; Z79.899 Other long term (current) drug therapy

== ENCOUNTER 2025-05-25 17:42 | Emergency (ER) | payer MEDICAID ==
[2025-05-25 17:57] VITALS: TEMP 98.5
--- NOTE | 2025-05-25 18:17 | ERPHSYRPT ---
- History of Present Illness Time Seen by Provider: 05/25/25 17:53 Source: patient Exam Limitations: no limitations Patient Subjective Stated Complaint: PT STATES SHE IS HAVING SEVERE CRAMPING Triage Nursing Assessment: PT ARRIVES TO THE ED VIA PRIVAT VEHICLE. PT IS WHEELED INTO THE ED AND HELPED WITH AN ASSIST OF 1 ONTO THE ER COT. PT IS ALERT AND ORIENTED X4, NO SIGNS OF RESPIRATORY DISTRESS, PULSES PRESENT AND EQUAL BIALTERALLY. PT STATES THAT SHE WAS SUPPOSED TO START HER PERIOD EARLIER THIS WEEK BUT DID NOT START UNTIL TODAY AND IT WAS ACCOMPANIED BY SEVERE 9/10 ABDOMINAL PAIN. PT STATES SHE HAS BEEN SEEN FOR THIS BEFORE AND WAS DIAGNOSED WITH OVARIAN CYSTS. PT STATES THAT SHE DOES FOLLOW WITH DR. URBINA, WHO DID A CULPOSCOPY EARLIER THIS WEEK. BOWEL SOUNDS ARE PRESENT AND ACTIVE IN ALL FOUR QUADRANTS. PT DOES HAVE TENDERNESS OVER THE ENTIRE ABDOMEN WITH PALPATION. Physician History: 19-year-old female presents to the emergency room with severe abdominal cramping she reports she is having bleeding she reports she think she is on her period she does have irregular. She does see OB she reports had a colposcopy earlier by Dr. Early, denies any nausea vomiting diarrhea denies any chest pain or shortness of breath denies any prior history of anemia or blood transfusions she does follow with her OB she does take an oral contraceptive pill she is now in ED for further eval Timing/Duration: today Activites at Onset: none Quality: cramping Onset Location: pelvic pain Pain Radiation: none Severity of Pain-Max: mild Severity of Pain-Current: mild Allergies/Adverse Reactions: amoxicillin Allergy (Intermediate, Verified 05/25/25 17:53) Difficulty Breathing cephalexin [From Keflex] Allergy (Intermediate, Verified 05/25/25 17:53) Rash cetirizine [From Zyrtec] Allergy (Intermediate, Verified 05/25/25 17:53) Hives metronidazole Allergy (Intermediate, Verified 05/25/25 17:53) Difficulty Breathing AND RASH trazodone Allergy (Intermediate, Verified 05/25/25 17:53) Hives guaifenesin [From Mucinex] Allergy (Verified 05/25/25 17:53) Rash RASH Home Medications: Paroxetine HCl 20 mg [Paxil 20 MG] 60 mg PO HS MDD 1 tab hs 09/23/17 [History] Norgestimate-Ethinyl Estradiol [Sprintec 28 Day Tablet] 1 each PO HS 11/21/24 [History] Propranolol HCl [Propranolol HCl ER] 60 mg PO HS 04/03/25 [History] Hx Tetanus, Diphtheria Vaccination/Date Given: Yes Hx Influenza Vaccination/Date Given: No Hx Pneumococcal Vaccination/Date Given: No Travel Risk - International Travel Have you traveled outside of the country in past 3 weeks: No - Emerging Infectious Disease Are you exhibiting symptoms associated with any current EIDs: Yes Symptoms: Abdominal Pain, Vomitting - Review of Systems Constitutional: No Fever, No Chills Eyes: No Symptoms Ears, Nose, & Throat: No Symptoms Respiratory: No Cough, No Dyspnea Cardiac: No Chest Pain, No Edema, No Syncope Abdominal/Gastrointestinal: Abdominal Pain (pelvic pain), No Nausea, No Vomiting, No Diarrhea Genitourinary Symptoms: Vaginal Bleeding, No Dysuria Musculoskeletal: No Back Pain, No Neck Pain Skin: No Rash Neurological: No Dizziness, No Focal Weakness, No Sensory Changes Psychological: No Symptoms Endocrine: No Symptoms All Other Systems: Reviewed and Negative - Past Medical History Pertinent Past Medical History: Yes Neurological History: Migraines ENT History: No Pertinent History Cardiac History: No Pertinent History Respiratory History: No Pertinent History Endocrine Medical History: No Pertinent History Musculoskeletal History: No Pertinent History GI Medical History: No Pertinent History History: No Pertinent History Psycho-Social History: Anxiety, Other Female Reproductive Disorders: No Pertinent History Other Medical History: insomnia - Past Surgical History Past Surgical History: Yes Neuro Surgical History: No Pertinent History Cardiac: No Pertinent History Respiratory: No Pertinent History Gastrointestinal: No Pertinent History Genitourinary: No Pertinent History Musculoskeletal: No Pertinent History Female Surgical History: Section Other Surgical History: c section. cyst removed from sinus Significant Family History: other (father had afib at age 19) - Female History Hx Last Menstrual Period: 02/19/2025 Hx Now: (UNKNOWN) - Social History Smoking Status: Never smoker Exposure to second hand smoke: No Drug Use: none - Social Determinants of Health Will the patient participate in the screening: Yes Do you worry about a steady place to live?: No Do you have any problems with any of the following?: No known problems In the past 12 months,have you had to go without utilities?: No Transportation Issues: No Has anyone in your support network made you feel unsafe?: No Have you or anyone in your house had to go w/o enough food: No - Nursing Vital Signs Nursing Vital Signs: Initial Vital Signs Temperature 98.5 F 05/25/25 17:56 Pulse Rate 75 05/25/25 17:56 Respiratory Rate 16 05/25/25 17:56 Blood Pressure 124/65 05/25/25 17:56 O2 Sat by Pulse Oximetry 97 05/25/25 17:56 Pain Scale Pain Intensity 9 - Physical Exam General Appearance: no apparent distress, alert Eye Exam: PERRL/EOMI, eyes nml inspection Ears, Nose, Throat Exam: normal ENT inspection, TMs normal, pharynx normal, moist mucous membranes Neck Exam: normal inspection, non-tender, supple, full range of motion Respiratory Exam: normal breath sounds, lungs clear, No respiratory distress Cardiovascular Exam: regular rate/rhythm, normal heart sounds, normal peripheral pulses Gastrointestinal/Abdomen Exam: soft, No tenderness, No mass Back Exam: normal inspection, normal range of motion, No CVA tenderness, No vertebral tenderness Extremity Exam: normal inspection, normal range of motion, pelvis stable Neurologic Exam: alert, oriented x 3, 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, 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, normal mood/affect, sensation nml, No motor deficits Skin Exam: normal color, warm, dry Lymphatic Exam: No adenopathy SpO2: 97 Ordered Tests: Active Orders 24 hr Category Date Time Status IV Insertion STAT Care 05/25/25 18:14 Active ABDOMEN AND PELVIS W/0 CONTRAS [CT] Stat Exams 05/25/25 19:48 Taken CBC W DIFF Stat Lab 05/25/25 18:16 Completed CMP Stat Lab 05/25/25 18:16 Completed HCG QUALITATIVE, URINE Stat Lab 05/25/25 18:06 Completed UA W/RFX UR CULTURE Stat Lab 05/25/25 18:06 Completed Medication Summary Discontinued Medications Generic Name Dose Route Start Last Admin Trade Name Freq PRN Reason Stop Dose Admin Acetaminophen 650 mg 05/25/25 19:17 05/25/25 19:21 Acetaminophen 325 Mg Tablet PO 05/25/25 19:18 650 mg STAT STA Administration Acetaminophen Confirm 05/25/25 19:20 Acetaminophen 325 Mg Tablet Administered 05/25/25 19:21 Dose 650 mg .ROUTE .STK-MED ONE Sodium Chloride 1,000 mls @ 999 mls/hr 05/25/25 18:14 11/13/25 19:25 Sodium Chloride 0.9% 1000 Ml IV 05/25/25 19:14 Infused .Q1H1M STA Infusion Sodium Chloride Confirm 05/25/25 18:20 Sodium Chloride 0.9% 1000 Ml Administered 05/25/25 18:21 Dose 1,000 mls @ ud .ROUTE .STK-MED ONE Naproxen 500 mg 05/25/25 18:15 05/25/25 18:26 Naproxen 500 Mg Tablet PO 05/25/25 18:16 500 mg STAT ONE Administration Lab/Rad Data: Laboratory Result Diagrams 05/25/25 18:16 05/25/25 18:16 Laboratory Results 05/25/25 05/25/25 05/25/25 Range/Units 18:16 18:16 18:06 WBC 15.5 H (3.98-10.04) x10^3/uL RBC 4.67 (3.93-5.22) x10^6/uL Hgb 13.9 (11.2-15.7) g/dL Hct 41.9 (34.1-44.9) % MCV 89.7 (79.4-94.8) fL MCH 29.8 (25.6-32.2) pg MCHC 33.2 (32.2-35.5) g/dL RDW 12.4 (11.7-14.4) % Plt Count 224 (182-369) x10^3/uL MPV 10.2 (9.4-12.3) fL Gran % 78.5 H (34.0-71.1) % Immature Gran % (Auto) 0.4 (0.001-0.429) % Nucleat RBC Rel Count 0.0 (0.00-0.2) % Eos # (Auto) 0.04 (0.04-0.36) x10^3/uL Immature Gran # (Auto) 0.06 H (0.001-0.031) x10^3u/L Absolute Lymphs (auto) 1.59 (1.18-3.74) x10^3/uL Absolute Monos (auto) 1.57 H (0.24-0.86) x10^3/uL Absolute Nucleated RBC 0.00 (0.00-0.012) x10^3u/L Lymphocytes % 10.3 L (19.3-51.7) % Monocytes % 10.2 (4.7-12.5) % Eosinophils % 0.3 L (0.7-5.8) % Basophils % 0.3 (0.1-1.2) % Absolute Granulocytes 12.15 H (1.56-6.13) x10^3/uL Basophils # 0.05 (0.01-0.08) x10^3/uL Sodium 134 L (135-145) mmol/L Potassium 4.1 (3.5-5.1) mmol/L Chloride 103 (98-107) mmol/L Carbon Dioxide 23 (22-30) mmol/L Anion Gap 12.0 (5-15) MEQ/L BUN 9 (7-17) mg/dL Creatinine 0.63 (0.52-1.04) mg/dL Estimated GFR 129.4 ML/MIN Glucose 84 (74-106) mg/dL Calcium 9.4 (8.4-10.2) mg/dL Total Bilirubin 1.10 (0.2-1.3) mg/dL AST 29 (14-36) U/L ALT 21 (0-35) U/L Alkaline Phosphatase 103 (38-126) U/L Serum Total Protein 7.9 (6.3-8.2) g/dL Albumin 4.6 (3.5-5.0) g/dL Urine Color (Yellow) Urine Appearance (Clear) Urine pH (4.6-8.0) Ur Specific [place] (1.005-1.030) Urine Protein (Negative) Urine Glucose (UA) (Negative) mg/dL Urine Ketones (Negative) Urine Blood (Negative) Urine Nitrite (Negative) Urine Bilirubin (Negative) Urine Urobilinogen (0.2) mg/dL Ur Leukocyte Esterase (Negative) U Hyaline Cast (Auto) (0-2) /LPF Urine Microscopic RBC (0-5) /HPF Urine Microscopic WBC (0-5) /HPF Ur Epithelial Cells (None Seen) /HPF Urine Bacteria (None Seen) /HPF Urine Culture Reflexed (NO) Urine HCG, Qual NEGATIVE (NEGATIVE) 05/25/25 Range/Units 18:06 WBC (3.98-10.04) x10^3/uL RBC (3.93-5.22) x10^6/uL Hgb (11.2-15.7) g/dL Hct (34.1-44.9) % MCV (79.4-94.8) fL MCH (25.6-32.2) pg MCHC (32.2-35.5) g/dL RDW (11.7-14.4) % Plt Count (182-369) x10^3/uL MPV (9.4-12.3) fL Gran % (34.0-71.1) % Immature Gran % (Auto) (0.001-0.429) % Nucleat RBC Rel Count (0.00-0.2) % Eos # (Auto) (0.04-0.36) x10^3/uL Immature Gran # (Auto) (0.001-0.031) x10^3u/L Absolute Lymphs (auto) (1.18-3.74) x10^3/uL Absolute Monos (auto) (0.24-0.86) x10^3/uL Absolute Nucleated RBC (0.00-0.012) x10^3u/L Lymphocytes % (19.3-51.7) % Monocytes % (4.7-12.5) % Eosinophils % (0.7-5.8) % Basophils % (0.1-1.2) % Absolute Granulocytes (1.56-6.13) x10^3/uL Basophils # (0.01-0.08) x10^3/uL Sodium (135-145) mmol/L Potassium (3.5-5.1) mmol/L Chloride (98-107) mmol/L Carbon Dioxide (22-30) mmol/L Anion Gap (5-15) MEQ/L BUN (7-17) mg/dL Creatinine (0.52-1.04) mg/dL Estimated GFR ML/MIN Glucose (74-106) mg/dL Calcium (8.4-10.2) mg/dL Total Bilirubin (0.2-1.3) mg/dL AST (14-36) U/L ALT (0-35) U/L Alkaline Phosphatase (38-126) U/L Serum Total Protein (6.3-8.2) g/dL Albumin (3.5-5.0) g/dL Urine Color Yellow (Yellow) Urine Appearance Clear (Clear) Urine pH 7.5 (4.6-8.0) Ur Specific [place] 1.010 (1.005-1.030) Urine Protein Negative (Negative) Urine Glucose (UA) Negative (Negative) mg/dL Urine Ketones Negative (Negative) Urine Blood Small A (Negative) Urine Nitrite Negative (Negative) Urine Bilirubin Negative (Negative) Urine Urobilinogen 0.2 (0.2) mg/dL Ur Leukocyte Esterase Negative (Negative) U Hyaline Cast (Auto) NONE SEEN (0-2) /LPF Urine Microscopic RBC 6-10 A (0-5) /HPF Urine Microscopic WBC 0-2 (0-5) /HPF Ur Epithelial Cells None Seen (None Seen) /HPF Urine Bacteria None Seen (None Seen) /HPF Urine Culture Reflexed NO (NO) Urine HCG, Qual (NEGATIVE) - Progress Progress: improved Progress Note: 05/25/25 21:18 CT scan shows no evidence of acute appendicitis patient feels improved white count 15,000 patient will follow-up with Dr. Kirby tomorrow she is actively on it. White count elevation could be due to some nausea and extravasation patient was given IV fluids will be discharged this time with close return precautions patient expressed understand the treatment plan - Departure Departure Disposition: Home Clinical Impression: Pelvic pain Leukocytosis Qualifiers: Leukocytosis type: unspecified Qualified Code(s): D72.829 - Elevated white blood cell count, unspecified Condition: Stable Critical Care Time: No Referrals: SAY GERARD NP [Primary Care Provider, [facility]] - Follow up/PCP as directed ADRIANA URBINA DO [ACTIVE STAFF, OBSTETRICS-GYNECOLOGY] - Follow up/PCP as directed Instructions: Abdominal pain, Pelvic Pain
[2025-05-25 18:20] LABS: BASOPHIL % 0.3 % (0.1-1.2); Basophil (Absolute #) 0.05 x10^3/uL (0.01-0.08); Eosinophil (Absolute #) 0.04 x10^3/uL (0.04-0.36); Hematocrit 41.9 % (34.1-44.9); Hemoglobin 13.9 g/dL (11.2-15.7); IMMATURE GRAN # 0.06 x10^3u/L (0.001-0.031); IMMATURE GRAN % 0.4 % (0.001-0.429); Lymphocyte (Absolute #) 1.59 x10^3/uL (1.18-3.74); Mean Corpuscular Hemoglobin 29.8 pg (25.6-32.2); Mean Corpuscular Hgb Concent. 33.2 g/dL (32.2-35.5); Monocyte (Absolute #) 1.57 x10^3/uL (0.24-0.86); NUCLEATED RBC # 0.00 x10^3u/L (0.00-0.012); NUCLEATED RBC % 0.0 % (0.00-0.2); Platelet Count 224 x10^3/uL (182-369); Red Blood Count 4.67 x10^6/uL (3.93-5.22); White Blood Count 15.5 x10^3/uL (3.98-10.04)
[2025-05-25 18:22] LABS: HCG URINE TEST NEGATIVE (NEGATIVE)
[2025-05-25] MEDS: Naprosyn 500 MG PO ONE (18:26)
[2025-05-25 18:28] LABS: Glucose, Urine Negative (Negative); Protein,Urine Dip Negative (Negative); WBC 0-2 /HPF (0-5)
[2025-05-25 18:33] LABS: Calcium 9.4 mg/dL (8.4-10.2); Carbon Dioxide 23.0 mmol/L (22-30); Creatinine 1 0.63 mg/dL (0.52-1.04); EST GLOMERULAR FILTRATION RATE 129.4 ML/MIN; Glucose 84.0 mg/dL (74-106); Potassium 4.1 mmol/L (3.5-5.1); SGOT/AST 29.0 U/L (14-36); SGPT/ALT 21.0 U/L (0-35); Total Protein 7.9 g/dL (6.3-8.2)
[2025-05-25] MEDS ORDERED: TYLENOL 325 MG ONE (19:20)
[2025-05-25] MEDS: TYLENOL 325 MG PO STA (19:21)
[2025-05-25 20:12] VITALS: PULSE 66
[2025-05-25 21:02] VITALS: RESP 18
[2025-05-25 21:20] VITALS: O2SAT 97
[2025-05-25 21:27] VITALS: BP 115/64
--- NOTE | 2025-05-26 08:38 | XRAY ---
Indication: Pelvic pain. Elevated WBC. Multiple contiguous axial images obtained through the abdomen and pelvis without contrast. Comparison: April 17, 2025. Lung bases remain clear. Heart not enlarged. Noncontrasted stomach and bowel loops appear nonobstructed again with normal appendix. There is mild diffuse scattered colonic fecal debris throughout including rectum. No free fluid/air. Remaining liver, gallbladder, pancreas, spleen, adrenal glands, kidneys, ureters, bladder, uterus, and aorta are unremarkable for noncontrast exam. Osseous structures intact. Impression: Again mild diffuse colonic fecal stasis. Remaining CT abdomen/pelvis without contrast continues to be negative.
== END 2025-05-25 21:28 | disposition home or self-care (01) ==
LOC: ED 17:42
DX: R10.20 Pelvic and perineal pain unspecified side (principal); D72.829 Elevated white blood cell count, unspecified; Z79.899 Other long term (current) drug therapy

== ENCOUNTER 2025-06-13 15:48 | Emergency (ER) | payer OTHER ==
[2025-06-13 15:53] VITALS: TEMP 96.5
[2025-06-13] MEDS ORDERED: Dextrose 5%/Water IV Soln. 500 ML 500 ML IV ONE (16:12)
[2025-06-13] MEDS: Dextrose 5%-1/2NS IV Soln. 500 ML 500 ML IV SCH (16:13)
[2025-06-13 16:21] LABS: BASOPHIL % 0.5 % (0.1-1.2); Basophil (Absolute #) 0.06 x10^3/uL (0.01-0.08); Eosinophil (Absolute #) 0.12 x10^3/uL (0.04-0.36); Hematocrit 40.4 % (34.1-44.9); Hemoglobin 13.4 g/dL (11.2-15.7); IMMATURE GRAN # 0.05 x10^3u/L (0.001-0.031); IMMATURE GRAN % 0.4 % (0.001-0.429); Lymphocyte (Absolute #) 2.44 x10^3/uL (1.18-3.74); Mean Corpuscular Hemoglobin 29.7 pg (25.6-32.2); Mean Corpuscular Hgb Concent. 33.2 g/dL (32.2-35.5); Monocyte (Absolute #) 1.34 x10^3/uL (0.24-0.86); NUCLEATED RBC # 0.00 x10^3u/L (0.00-0.012); NUCLEATED RBC % 0.0 % (0.00-0.2); Platelet Count 338 x10^3/uL (182-369); Red Blood Count 4.51 x10^6/uL (3.93-5.22); White Blood Count 11.7 x10^3/uL (3.98-10.04)
[2025-06-13 16:41] LABS: Calcium 9.5 mg/dL (8.4-10.2); Carbon Dioxide 20.0 mmol/L (22-30); Creatinine 1 0.64 mg/dL (0.52-1.04); EST GLOMERULAR FILTRATION RATE 128.9 ML/MIN; Glucose 75.0 mg/dL (74-106); Potassium 4.1 mmol/L (3.5-5.1); SGOT/AST 22.0 U/L (14-36); SGPT/ALT 17.0 U/L (0-35); Total Protein 7.8 g/dL (6.3-8.2)
[2025-06-13 17:10] VITALS: O2SAT 100
[2025-06-13 17:21] LABS: HCG URINE TEST NEGATIVE (NEGATIVE)
[2025-06-13 17:24] LABS: Glucose, Urine Negative (Negative); Protein,Urine Dip Negative (Negative); WBC 0-2 /HPF (0-5)
--- NOTE | 2025-06-13 17:28 | ERPHSYRPT ---
- History of Present Illness Time Seen by Provider: 06/13/25 17:22 Source: patient Exam Limitations: no limitations Patient Subjective Stated Complaint: PT STATES SHE IS HAVING SEVERE ANXIETY AND CHEST PAIN Triage Nursing Assessment: PT ARRIVES TO THE ED VIA AMBULANCEFOR ANXIETY AND CHEST PAIN. PT IS VERY DROWSY AND SLOW TO RESPOND TO QUESTIONS. PT IS TEARFUL AND HAVING INTERMITTENT SHORTNESS OF BREATH. PT STATES THAT THE DATHER OF HER CHILD COMMITTED SUICIDE TODAY AND SHE JUST FEELS NUMB NOW. PT STATES THAT THE CHEST PAIN IS A 2/10 AND SHE THINKS THAT THIS IS DUE TO HER ANXIETY. PT STATES THAT SHE HAS NOT TAKEN ANY OF HER MEDICATION TODAY. PT ALSO STATES THAT SHE IS SUPPOSED TO HAVE A PRESCRIPTION FOR CLONIPIN BUT HAS NOT GOTTEN IT FILLED IN A LONG TIME. Physician History: Patient is a 19-year-old female history of migraine headaches, anxiety presents to our ED for evaluation of anxiety and chest pain. Patient is tearful and having intermittent episodes of shortness of breath. Patient was just informed that her whom she recently committed suicide. Patient states she feels numb. Patient complaining of substernal chest pain no radiation. Patient is hyperventilating and appears very anxious. Patient states she has a prescription for Klonopin but has yet to get it filled. Patient symptoms are constant. Symptoms are mild to moderate in intensity. No specific worsening or proving factors. Patient voices no other complaints or concerns at this time. Patient denies homicidal suicidal ideation. Portions of this note were created with voice recognition technology. There may be grammatical, spelling, punctuation or sound alike errors Timing/Duration: today Severity: moderate Modifying Factors: Improves With: nothing Associated Symptoms: denies symptoms Allergies/Adverse Reactions: amoxicillin Allergy (Intermediate, Verified 06/13/25 15:59) Difficulty Breathing cephalexin [From Keflex] Allergy (Intermediate, Verified 06/13/25 15:59) Rash cetirizine [From Zyrtec] Allergy (Intermediate, Verified 06/13/25 15:59) Hives metronidazole Allergy (Intermediate, Verified 06/13/25 15:59) Difficulty Breathing AND RASH trazodone Allergy (Intermediate, Verified 06/13/25 15:59) Hives guaifenesin [From Mucinex] Allergy (Verified 06/13/25 15:59) Rash RASH Home Medications: Paroxetine HCl 20 mg [Paxil 20 MG] 60 mg PO HS MDD 1 tab hs 09/23/17 [History] Norgestimate-Ethinyl Estradiol [Sprintec 28 Day Tablet] 1 each PO HS 11/21/24 [History] Propranolol HCl [Propranolol HCl ER] 60 mg PO HS 04/03/25 [History] Hx Tetanus, Diphtheria Vaccination/Date Given: Yes Hx Influenza Vaccination/Date Given: No Hx Pneumococcal Vaccination/Date Given: No Immunizations Up to Date: Yes Travel Risk - International Travel Have you traveled outside of the country in past 3 weeks: No - Emerging Infectious Disease Are you exhibiting symptoms associated with any current EIDs: No Symptoms: Abdominal Pain, Vomitting - Review of Systems All Other Systems: Reviewed and Negative - Past Medical History Pertinent Past Medical History: Yes Neurological History: Migraines ENT History: No Pertinent History Cardiac History: No Pertinent History Respiratory History: No Pertinent History Endocrine Medical History: No Pertinent History Musculoskeletal History: No Pertinent History GI Medical History: No Pertinent History History: No Pertinent History Psycho-Social History: Anxiety, Other Female Reproductive Disorders: No Pertinent History Other Medical History: insomnia - Past Surgical History Past Surgical History: Yes Neuro Surgical History: No Pertinent History Cardiac: No Pertinent History Respiratory: No Pertinent History Gastrointestinal: No Pertinent History Genitourinary: No Pertinent History Musculoskeletal: No Pertinent History Female Surgical History: Section Other Surgical History: c section. cyst removed from sinus Significant Family History: other (father had afib at age 19) - Female History Hx Last Menstrual Period: 05/23/2025 Hx Now: No - Social History Smoking Status: Never smoker Exposure to second hand smoke: No Drug Use: none - Social Determinants of Health Will the patient participate in the screening: Yes Do you worry about a steady place to live?: No Do you have any problems with any of the following?: No known problems In the past 12 months,have you had to go without utilities?: No Transportation Issues: No Has anyone in your support network made you feel unsafe?: No Have you or anyone in your house had to go w/o enough food: No - Nursing Vital Signs Nursing Vital Signs: Initial Vital Signs Temperature 96.5 F 06/13/25 15:49 Pulse Rate 79 06/13/25 15:49 Respiratory Rate 12 06/13/25 15:49 Blood Pressure 110/73 06/13/25 15:49 O2 Sat by Pulse Oximetry 100 06/13/25 15:49 Pain Scale Pain Intensity 2 - Physical Exam General Appearance: mild distress, alert, other (Patient appears to be experiencing a anxiety attack) Eye Exam: PERRL/EOMI, eyes nml inspection Ears, Nose, Throat Exam: normal ENT inspection, moist mucous membranes Neck Exam: normal inspection, full range of motion Respiratory Exam: normal breath sounds, lungs clear, airway intact, No respiratory distress Cardiovascular Exam: regular rate/rhythm, normal heart sounds, normal peripheral pulses Gastrointestinal/Abdomen Exam: soft, normal bowel sounds, No tenderness, No mass Back Exam: normal inspection, normal range of motion, No CVA tenderness, No vertebral tenderness Extremity Exam: normal inspection, normal range of motion, pelvis stable Neurologic Exam: alert, oriented x 3, cooperative, normal mood/affect, sensation nml, No motor deficits Skin Exam: normal color, warm, dry, No rash Lymphatic Exam: No adenopathy SpO2 Interpretation: normal SpO2: 100 O2 Delivery: Room Air - Course Nursing assessment & vital signs reviewed: Yes - Radiology Exams Chest X-ray Interpretation: Interpreted by me (No acute findings) Ordered Tests: Active Orders 24 hr Category Date Time Status Buyer Broker STAT Care 06/13/25 16:04 Active EKG-ER Only STAT Care 06/13/25 16:03 Completed IV Insertion STAT Care 06/13/25 16:03 Active Pulse Oximetry (ED) STAT Care 06/13/25 16:03 Active CHEST 1 VIEW (PORTABLE) Stat Exams 06/13/25 16:04 Taken CBC W DIFF Stat Lab 06/13/25 16:15 Completed CMP Stat Lab 06/13/25 16:15 Completed CULTURE,URINE Stat Lab 06/13/25 17:15 Received D-DIMER QUANTITATIVE Stat Lab 06/13/25 16:15 Completed HCG QUALITATIVE, URINE Stat Lab 06/13/25 17:15 Completed POCT GLUCOSE Stat Lab 06/13/25 16:02 Completed POCT GLUCOSE Stat Lab 06/13/25 17:19 Completed TROPONIN Q4H Lab 06/13/25 16:15 Completed TROPONIN Q4H Lab 06/13/25 20:15 Ordered TROPONIN Q4H Lab 06/14/25 00:15 Ordered UA W/RFX UR CULTURE Stat Lab 06/13/25 17:15 Completed Medication Summary Generic Name Dose Route Start Last Admin Trade Name Izabel PRN Reason Stop Dose Admin Dextrose/Sodium Chloride 500 mls @ 250 mls/hr 06/13/25 16:30 06/13/25 16:13 Dextrose 5%-1/2ns Iv Soln. 500 Ml IV 07/13/25 16:29 250 mls/hr .Q2H KYLE Administration Discontinued Medications Generic Name Dose Route Start Last Admin Trade Name Freq PRN Reason Stop Dose Admin Dextrose Confirm 06/13/25 16:12 Dextrose 5%/Water Iv Soln. 500 Ml Administered 06/13/25 16:13 Dose 500 mls @ ud IV .STK-MED ONE Lab/Rad Data: Laboratory Result Diagrams 06/13/25 16:15 06/13/25 16:15 Laboratory Results 06/13/25 06/13/25 06/13/25 Range/Units 17:19 17:15 17:15 WBC (3.98-10.04) x10^3/uL RBC (3.93-5.22) x10^6/uL Hgb (11.2-15.7) g/dL Hct (34.1-44.9) % MCV (79.4-94.8) fL MCH (25.6-32.2) pg MCHC (32.2-35.5) g/dL RDW (11.7-14.4) % Plt Count (182-369) x10^3/uL MPV (9.4-12.3) fL Gran % (34.0-71.1) % Immature Gran % (Auto) (0.001-0.429) % Nucleat RBC Rel Count (0.00-0.2) % Eos # (Auto) (0.04-0.36) x10^3/uL Immature Gran # (Auto) (0.001-0.031) x10^3u/L Absolute Lymphs (auto) (1.18-3.74) x10^3/uL Absolute Monos (auto) (0.24-0.86) x10^3/uL Absolute Nucleated RBC (0.00-0.012) x10^3u/L Lymphocytes % (19.3-51.7) % Monocytes % (4.7-12.5) % Eosinophils % (0.7-5.8) % Basophils % (0.1-1.2) % Absolute Granulocytes (1.56-6.13) x10^3/uL Basophils # (0.01-0.08) x10^3/uL D-Dimer (0.0-0.50) mg/L Sodium (135-145) mmol/L Potassium (3.5-5.1) mmol/L Chloride (98-107) mmol/L Carbon Dioxide (22-30) mmol/L Anion Gap (5-15) MEQ/L BUN (7-17) mg/dL Creatinine (0.52-1.04) mg/dL Estimated GFR ML/MIN Glucose (74-106) mg/dL POC Glucometer 155 H (74 to 106) mg/dL Calcium (8.4-10.2) mg/dL Total Bilirubin (0.2-1.3) mg/dL AST (14-36) U/L ALT (0-35) U/L Alkaline Phosphatase (38-126) U/L Troponin I (0.000-0.033) ng/mL Serum Total Protein (6.3-8.2) g/dL Albumin (3.5-5.0) g/dL Urine Color Yellow (Yellow) Urine Appearance Clear (Clear) Urine pH 7.5 (4.6-8.0) Ur Specific [place] 1.010 (1.005-1.030) Urine Protein Negative (Negative) Urine Glucose (UA) Negative (Negative) mg/dL Urine Ketones Negative (Negative) Urine Blood NHT (Negative) Urine Nitrite Negative (Negative) Urine Bilirubin Negative (Negative) Urine Urobilinogen 1.0 A (0.2) mg/dL Ur Leukocyte Esterase Trace A (Negative) U Hyaline Cast (Auto) NONE SEEN (0-2) /LPF Urine Microscopic RBC 3-5 (0-5) /HPF Urine Microscopic WBC 0-2 (0-5) /HPF Ur Epithelial Cells None Seen (None Seen) /HPF Urine Bacteria Rare A (None Seen) /HPF Urine Culture Reflexed YES (NO) Urine HCG, Qual NEGATIVE (NEGATIVE) 06/13/25 06/13/25 06/13/25 Range/Units 16:15 16:15 16:15 WBC (3.98-10.04) x10^3/uL RBC (3.93-5.22) x10^6/uL Hgb (11.2-15.7) g/dL Hct (34.1-44.9) % MCV (79.4-94.8) fL MCH (25.6-32.2) pg MCHC (32.2-35.5) g/dL RDW (11.7-14.4) % Plt Count (182-369) x10^3/uL MPV (9.4-12.3) fL Gran % (34.0-71.1) % Immature Gran % (Auto) (0.001-0.429) % Nucleat RBC Rel Count (0.00-0.2) % Eos # (Auto) (0.04-0.36) x10^3/uL Immature Gran # (Auto) (0.001-0.031) x10^3u/L Absolute Lymphs (auto) (1.18-3.74) x10^3/uL Absolute Monos (auto) (0.24-0.86) x10^3/uL Absolute Nucleated RBC (0.00-0.012) x10^3u/L Lymphocytes % (19.3-51.7) % Monocytes % (4.7-12.5) % Eosinophils % (0.7-5.8) % Basophils % (0.1-1.2) % Absolute Granulocytes (1.56-6.13) x10^3/uL Basophils # (0.01-0.08) x10^3/uL D-Dimer 0.24 (0.0-0.50) mg/L Sodium 135 (135-145) mmol/L Potassium 4.1 (3.5-5.1) mmol/L Chloride 104 (98-107) mmol/L Carbon Dioxide 20 L (22-30) mmol/L Anion Gap 14.9 (5-15) MEQ/L BUN 9 (7-17) mg/dL Creatinine 0.64 (0.52-1.04) mg/dL Estimated GFR 128.9 ML/MIN Glucose 75 (74-106) mg/dL POC Glucometer (74 to 106) mg/dL Calcium 9.5 (8.4-10.2) mg/dL Total Bilirubin 0.90 (0.2-1.3) mg/dL AST 22 (14-36) U/L ALT 17 (0-35) U/L Alkaline Phosphatase 111 (38-126) U/L Troponin I < 0.012 (0.000-0.033) ng/mL Serum Total Protein 7.8 (6.3-8.2) g/dL Albumin 4.5 (3.5-5.0) g/dL Urine Color (Yellow) Urine Appearance (Clear) Urine pH (4.6-8.0) Ur Specific [place] (1.005-1.030) Urine Protein (Negative) Urine Glucose (UA) (Negative) mg/dL Urine Ketones (Negative) Urine Blood (Negative) Urine Nitrite (Negative) Urine Bilirubin (Negative) Urine Urobilinogen (0.2) mg/dL Ur Leukocyte Esterase (Negative) U Hyaline Cast (Auto) (0-2) /LPF Urine Microscopic RBC (0-5) /HPF Urine Microscopic WBC (0-5) /HPF Ur Epithelial Cells (None Seen) /HPF Urine Bacteria (None Seen) /HPF Urine Culture Reflexed (NO) Urine HCG, Qual (NEGATIVE) 06/13/25 06/13/25 Range/Units 16:15 16:02 WBC 11.7 H (3.98-10.04) x10^3/uL RBC 4.51 (3.93-5.22) x10^6/uL Hgb 13.4 (11.2-15.7) g/dL Hct 40.4 (34.1-44.9) % MCV 89.6 (79.4-94.8) fL MCH 29.7 (25.6-32.2) pg MCHC 33.2 (32.2-35.5) g/dL RDW 12.3 (11.7-14.4) % Plt Count 338 (182-369) x10^3/uL MPV 10.0 (9.4-12.3) fL Gran % 65.9 (34.0-71.1) % Immature Gran % (Auto) 0.4 (0.001-0.429) % Nucleat RBC Rel Count 0.0 (0.00-0.2) % Eos # (Auto) 0.12 (0.04-0.36) x10^3/uL Immature Gran # (Auto) 0.05 H (0.001-0.031) x10^3u/L Absolute Lymphs (auto) 2.44 (1.18-3.74) x10^3/uL Absolute Monos (auto) 1.34 H (0.24-0.86) x10^3/uL Absolute Nucleated RBC 0.00 (0.00-0.012) x10^3u/L Lymphocytes % 20.8 (19.3-51.7) % Monocytes % 11.4 (4.7-12.5) % Eosinophils % 1.0 (0.7-5.8) % Basophils % 0.5 (0.1-1.2) % Absolute Granulocytes 7.71 H (1.56-6.13) x10^3/uL Basophils # 0.06 (0.01-0.08) x10^3/uL D-Dimer (0.0-0.50) mg/L Sodium (135-145) mmol/L Potassium (3.5-5.1) mmol/L Chloride (98-107) mmol/L Carbon Dioxide (22-30) mmol/L Anion Gap (5-15) MEQ/L BUN (7-17) mg/dL Creatinine (0.52-1.04) mg/dL Estimated GFR ML/MIN Glucose (74-106) mg/dL POC Glucometer 61 L (74 to 106) mg/dL Calcium (8.4-10.2) mg/dL Total Bilirubin (0.2-1.3) mg/dL AST (14-36) U/L ALT (0-35) U/L Alkaline Phosphatase (38-126) U/L Troponin I (0.000-0.033) ng/mL Serum Total Protein (6.3-8.2) g/dL Albumin (3.5-5.0) g/dL Urine Color (Yellow) Urine Appearance (Clear) Urine pH (4.6-8.0) Ur Specific [place] (1.005-1.030) Urine Protein (Negative) Urine Glucose (UA) (Negative) mg/dL Urine Ketones (Negative) Urine Blood (Negative) Urine Nitrite (Negative) Urine Bilirubin (Negative) Urine Urobilinogen (0.2) mg/dL Ur Leukocyte Esterase (Negative) U Hyaline Cast (Auto) (0-2) /LPF Urine Microscopic RBC (0-5) /HPF Urine Microscopic WBC (0-5) /HPF Ur Epithelial Cells (None Seen) /HPF Urine Bacteria (None Seen) /HPF Urine Culture Reflexed (NO) Urine HCG, Qual (NEGATIVE) - Progress Progress: improved Progress Note: 06/13/25 17:40 Patient is a 19-year-old female history of migraine headaches, anxiety presents to our ED for evaluation of anxiety and chest pain. Patient is tearful and having intermittent episodes of shortness of breath. Patient was just informed that her whom she recently committed suicide. Patient states she feels numb. Patient complaining of substernal chest pain no radiation. Patient is hyperventilating and appears very anxious. Physical exam suggests anxiety. Physical exam otherwise nonremarkable. Laboratory workup reveals a leukocytosis of 11.7. However patient has no fevers or nidus of infection. D-dimer negative. Troponin negative. Patient was slightly hypoglycemic at 61. D5 half-normal administered. Glucose 155. Patient feels much better she is conversant well-appearing and in no distress. Patient denies chest pain. Chest x-ray negative for acute pathology. EKG sinus rhythm. No ischemic changes. Vitals are normal. Family at bedside. Patient states she is ready for discharge. She voices no other complaints or concerns at this time. History obtained from patient and mother who is at the bedside. Differential diagnosis includes anxiety, PE, panic attack, ACS I considered administering a small dose of Xanax however patient settled relaxed on her own. No sedative required or indicated Dr. Bailey independently reviewed and interpreted the chest x-ray. No acute findings observed. This is a preliminary read. Formal read pending Portions of this note were created with voice recognition technology. There may be grammatical, spelling, punctuation or sound alike errors Complexity of problems addressed is moderate acute complicated. No critical care time. Complex of data reviewed and analyzed is moderate. Test ordered chest reviewed results analyzed and correlated clinically with history and physical exam. Risk of complication and or risk of morbidity/mortality of patient management is low. Vital stable. Time spent in discharge patient is approximately 15 minutes. Plan of care established for shared decision making. No social determinants of health present to impede follow-up. Portions of this note were created with voice recognition technology. There may be grammatical, spelling, punctuation or sound alike errors 12/02/25 17:42 Counseled pt/family regarding: lab results, diagnosis, need for follow-up, rad results - Departure Departure Disposition: Home Clinical Impression: Anxiety, Mourning, Hypoglycemia Condition: Stable Critical Care Time: No Referrals: SAY GERARD NP [Primary Care Provider, [facility]] - Follow up/PCP as directed Additional Instructions: Discharge/Care Plan KARIS LEVY was seen on 06/13/25 in the Emergency Room. The patient was counseled regarding Diagnosis,Lab results, Imaging studies, need for follow up and when to return to the Emergency Room. Prescriptions given: Discharge Note I have spoken with the patient and/or caregivers. I have explained the patient's condition, diagnosis and treatment plan based on the information available to me at this time. I have answered the patient's and/or caregiver's questions and addressed any concerns. The patient and/or caregivers have as good understanding of the patient's diagnosis, condition and treatment plan as can be expected at this point. The vital signs have been stable. The patient's condition is stable and appropriate for discharge from the emergency department. The patient will pursue further outpatient evaluation with the primary care physician or other designated or consulting physician as outlined in the discharge instructions. The patient and/or caregivers are agreeable to this plan of care and follow-up instructions have been explained in detail. The patient and/or caregivers have received these instruction. The patient/and or caregivers are aware that any significant change in condition or worsening of symptoms should prompt an immediate return to this or the closest emergency department or call 911.
[2025-06-13 18:06] VITALS: BP 126/82; PULSE 75; RESP 16
--- NOTE | 2025-06-14 08:45 | XRAY ---
Indication: Pain. Comparison: March 01, 2019 Portable chest again demonstrates normal heart and lungs. Bony thorax intact again with minimal dextroscoliosis. No new/acute findings.
== END 2025-06-13 18:10 | disposition home or self-care (01) ==
LOC: ED 15:48
DX: F41.9 Anxiety disorder, unspecified (principal); F43.22 Adjustment disorder with anxiety; E16.2 Hypoglycemia, unspecified; R07.9 Chest pain, unspecified; Z79.899 Other long term (current) drug therapy